=== PATIENT | male | born 1955 | race Caucasian/White ===

== ENCOUNTER 2017-09-12 12:53 | Inpatient (IN) | payer MEDICARE ==
[2017-09-12 13:21] VITALS: BMI 30.9
[2017-09-12] MEDS ORDERED: Sodium Chloride 0.9% 1,000 ML IV STA (13:34)
[2017-09-12 13:47] LABS: BASO # 0.02 K/mm3 (0.0-2.0); BASO % 0.3 % (0.0-3.0); EOS # 0.3 (0.0-0.7); EOS % 3.7 % (1.5-5.0); GRAN # 4.15 (1.4-6.5); GRAN % 61.2 % (50.0-68.0); HEMATOCRIT 40.5 % (42.0-52.0); LYMPH % 29.2 % (22.0-35.0); MEAN CELL VOLUME 83.2 fl (80.0-105.0); MEAN CORPUSCULAR HEMOGLOBIN 28.5 pg (25.0-35.0); MEAN CORPUSCULAR HGB CONC 34.3 g/dl (31.0-37.0); MEAN PLATELET VOLUME 11.3 fl (7.0-11.0); MONO # 0.4 (0.1-0.6); MONO % 5.6 % (1.0-6.0); RED CELL DISTRIBUTION WIDTH 13.2 % (11.5-14.5); WHITE BLOOD COUNT 6.8 10^3/ul (4.5-11.0)
[2017-09-12 13:58] LABS: ALB/GLOB RATIO 1.3 (1.1-1.8); ALKALINE PHOSPHATASE 61 U/L (38-126); ALT/SGPT 37 U/L (7-56); AST/SGOT 27 U/L (17-59); BILIRUBIN,TOTAL 1.2 mg/dL (0.2-1.3); BLOOD UREA NITROGEN 18 mg/dL (7-21); CARBON DIOXIDE 24 mmol/L (21-33); CHLORIDE 107 mmol/L (98-107); GFR AFRICAN-AMERICAN > 60; GLUCOSE,RANDOM 186 mg/dL (70-110); POTASSIUM 3.6 mmol/L (3.6-5.0); SODIUM 141 mmol/L (132-148); TOTAL PROTEIN 6.7 g/dL (5.8-8.3)
--- NOTE | 2017-09-12 14:03 | ED PDOC ---
Arrival/HPI - General Chief Complaint: Dizziness/Lightheaded Time Seen by Provider: 09/12/17 13:03 Historian: Patient, Family - History of Present Illness Narrative History of Present Illness (Text): 09/12/17 13:51 A 62-year-old male presented to [facility] [place] for chief complaint of syncopal episodes. He had a PMH of BPPV, systolic CHF, GERD, CAD, a. fib, stent placement, [place], hypertension, diabetes, and BPH. His first episode of syncope occurred two days ago while he was in the city. He was getting out of the car when he passed out. EMS was called but he did not go to the hospital. Yesterday, he had an episode of presyncope while he was doing some work. This morning, when he went to stand up from the couch, he passed out and fell backwards. His daughter, who was with him at the time, said that she saw some possible seizure activity for about 20 seconds. He did not bite his tongue, or lose control of his bladder or bowels. Patient does not remember passing out or waking up. Patient has recently been diagnosed with BPPV and started taking meclizine, when needed. Patient admits to feeling general weakness and his head feels heavy. Patient admits to shortness of breath with exertion and slight headache. He denies F/C, chest pain , Nausea, vomiting, diarrhea and constipation. PMH: diagnosed with BBPV 1 month ago, systolic CHF, GERD, CAD, a. fib, stent placement, IN, hypertension, diabetes, and BPH. PSH: Left eye surgery: retinal tear and cataract Social: Former smoker, denies alcohol, and drug use Allergies: NKDA Symptom Course: Intermittent Past Medical History - Infectious Disease Hx of Infectious Diseases: None - Tetanus Immunization Tetanus Immunization: Unknown - Cardiac Hx Atrial Fibrillation: Yes - Pulmonary Hx Respiratory Disorders: No Hx Asthma: No Hx Bronchitis: No Hx Chronic Obstructive Pulmonary Disease (COPD): Yes Hx Emphysema: No Hx Pneumonia: No Hx Respiratory Aspiration: No Hx Respiratory Tract Infection: No Hx Sleep Apnea: No Hx Tuberculosis: No - Neurological Hx Neurological Disorder: No Hx Alzheimer's Disease: No HX Cerebrovascular Accident: No Hx Dementia: No Hx Dizziness: No Hx Meningitis: No Hx Migraine: No Hx Parkinson's Disease: No Hx Seizures: No Hx Transient Ischemic Attacks (TIA): No - HEENT Hx HEENT Disorder: No Hx Blind: No Hx Cataracts: Yes (removed) Hx Deafness: No Hx Difficulty Chewing: No Hx Epistaxis: No Hx Glaucoma: No Hx Macular Degeneration: No Other/Comment: Retinal detachment repair - Renal Hx Renal Disorder: No Hx Dialysis: No Hx Kidney Stones: No Hx Neurogenic Bladder: No Hx Pyelonephritis: No Hx Renal Cancer: No Hx Renal Failure: No - Endocrine/Metabolic Hx Endocrine Disorders: Yes Hx Adrenal Cancer: No Hx Diabetes Insipidus: No Hx Diabetes Mellitus Type 1: No Hx Diabetes Mellitus Type 2: Yes Hx Hyperthyroidism: No Hx Hypothyroidism: No Hx Systemic Lupus Erythematosus: No - Hematological/Oncological Hx Blood Disorders: No Hx AIDS: No Hx Anemia: No Hx Blood Transfusions: No Hx Blood Transfusion Reaction: No Hx Cancer: No Hx Chemotherapy: No Hx Cirrhosis: No Hx Hemophilia: No Hx Hepatitis A: No Hx Hepatitis B: No Hx Hepatitis C: No Hx Metastasis: No Hx Shingles: No Hx Sickle Cell Disease: No Hx Unexplained Bleeding: No - Integumentary Hx Dermatological Disorder: No Hx Basal Cell Carcinoma: No Hx Eczema: No Hx Melanoma: No Hx Psoriasis: No Hx Squamous Cell Carcinoma: No - Musculoskeletal/Rheumatological Hx Musculoskeletal Disorders: Yes Hx Arthritis: Yes Hx Back Pain: No Hx Degenerative Joint Disease: No Hx Falls: No Hx Fractures: No Hx Gout: No Hx Herniated Disk: No Hx Myasthenia Gravis: No Hx Osteoarthritis: No Hx Osteomyelitis: No Hx Osteoporosis: No Hx Rhabdomyolysis: No Hx Spinal Stenosis: No Hx Unsteady Gait: No - Gastrointestinal Hx Gastrointestinal Disorders: No Hx Colostomy: No Hx Crohn's Disease: No Hx Diverticulitis: No Hx Gall Bladder Disease: No Hx Gastroesophageal Reflux: No Hx Gastrointestinal Ulcer: No Hx Ileostomy: No Hx Liver Failure: No Hx Pancreatitis: No HX Swallowing Problems: No - Genitourinary/Gynecological Hx Genitourinary Disorders: No Hx Hematuria: No Hx Incontinence: No Hx Prostate Problems: No Hx Sexually Transmitted Diseases: No Hx Urinary Tract Infection: No - Psychiatric Hx Psychophysiologic Disorder: No Hx Anxiety: No Hx Bipolar Disorder: No Hx Depression: No Hx Emotional Abuse: No Hx Hallucinations: No Hx Panic Disorder: No Hx Post Traumatic Stress Disorder: No Hx Psychosis: No Hx Physical Abuse: No Hx Schizophrenia: No Hx Sexual Abuse: No Hx Substance Use: No - Surgical History Hx Cardiac Catheterization: Yes (2012) - Anesthesia Hx Anesthesia: Yes Hx Anesthesia Reactions: No Hx Malignant Hyperthermia: No - Suicidal Assessment Feels Threatened In Home Enviroment: No Family/Social History - Physician Review Nursing Documentation Reviewed: Yes Family/Social History: No Known Family HX Smoking Status: Former Smoker Hx Alcohol Use: No Hx Substance Use: No Hx Substance Use Treatment: No Allergies/Home Meds Allergies/Adverse Reactions: Allergies No Known Allergies Allergy (Verified 06/26/14 22:32) Home Medications: Home Meds Medication Instructions Recorded Confirmed Atorvastatin [Lipitor] 20 mg PO BID 10/05/15 09/12/17 Digoxin [Digitek] 0.25 mcg PO DAILY 10/05/15 07/22/16 Furosemide [Lasix] 40 mg PO HS 09/12/17 09/12/17 Lisinopril 20 mg PO HS 09/12/17 09/12/17 Review of Systems - Physician Review All systems were reviewed & negative as marked: Yes - Review of Systems Constitutional: Normal Eyes: Normal ENT: Normal Respiratory: Normal Cardiovascular: Syncope Gastrointestinal: Normal Musculoskeletal: Other (generalized weakness ) Skin: Normal Neurological: Headache Endocrine: Normal Hemo/Lymphatic: Normal Psychiatric: Normal Physical Exam Vital Signs Reviewed: Yes Vital Signs Temp Pulse Resp BP Pulse Ox 09/12/17 15:43 97.8 F 66 17 137/74 99 09/12/17 13:10 98.3 F 89 17 143/80 98 Temperature: Afebrile Blood Pressure: Hypertensive Pulse: Regular Respiratory Rate: Normal Appearance: Positive for: Well-Appearing, Non-Toxic, Comfortable Pain Distress: None Mental Status: Positive for: Alert and Oriented X 3 Finger Stick Blood Glucose: 171 - Systems Exam Head: Present: Atraumatic, Normocephalic Pupils: Present: PERRL Mouth: Present: Moist Mucous Membranes Neck: Present: Normal Range of Motion Respiratory/Chest: Present: Clear to Auscultation. No: Respiratory Distress, Accessory Muscle Use, Wheezes Cardiovascular: Present: Regular Rate and Rhythm, Normal S1, S2. No: Murmurs Abdomen: Present: Normal Bowel Sounds. No: Tenderness, Distention Upper Extremity: Present: Normal Inspection, Cyanosis, Edema Lower Extremity: Present: Normal Inspection. No: Edema Neurological: Present: GCS=15, CN II-XII Intact, Speech Normal, Motor Func Grossly Intact, Normal Sensory Function, Normal Cerebellar Funct, Norm Deep Tendon Reflexes, Gait Normal, Memory Normal, Normal 2Pt Descrimination Skin: Present: Warm, Dry, Normal Color. No: Rashes Psychiatric: Present: Alert, Oriented x 3 Medical Decision Making ED Course and Treatment: 62 year old male w/ involved cardiac history, bppv, scheduled outpt. MRI for left sided auditory /canal /vestibular mechanism which was lost to follow up presents complaining of repeated syncopal events , always falling to the left will need admission for further detailed syncope workup including possible mri/ mra brain/neck, MRI vestibular mechanism of left ear, possible tilt table testing, neurology /cardiology consultations . Pt w/ largely normal labs, telemetry monitoring while in Emergency department. 09/12/17 18:12 - Lab Interpretations Lab Results: 09/12/17 13:22 09/12/17 13:22 Lab Results 09/12/17 15:17: Urine Color Yellow, Urine Appearance Clear, Urine pH 6.0, Ur Specific [place] 1.020, Urine Protein Trace H, Urine Glucose (UA) Negative, Urine Ketones Negative, Urine Blood Negative, Urine Nitrate Negative, Urine Bilirubin Negative, Urine Urobilinogen 0.2, Ur Leukocyte Esterase Negative, Urine RBC 0 - 2, Urine WBC 0 - 2, Ur Epithelial Cells 0 - 2, Urine Bacteria Occ 09/12/17 13:22: Digoxin 0.7 L 09/12/17 13:22: Sodium 141, Potassium 3.6, Chloride 107, Carbon Dioxide 24, Anion Gap 14, BUN 18, Creatinine 1.1, Est GFR ( Amer) > 60, Est GFR (Non- Af Amer) > 60, Random Glucose 186 H, Calcium 9.4, Total Bilirubin 1.2, AST 27, ALT 37, Alkaline Phosphatase 61, Lactate Dehydrogenase 399, Total Creatine Kinase 124, Troponin I < 0.01 D, NT-Pro-B Natriuret Pep 726 H, Total Protein 6.7, Albumin 3.8, Globulin 2.9, Albumin/Globulin Ratio 1.3 09/12/17 13:22: PT 14.4 H, INR 1.31 H, APTT 52.4 H 09/12/17 13:22: WBC 6.8, RBC 4.87, Hgb 13.9 L, Hct 40.5 L, MCV 83.2, MCH 28.5, MCHC 34.3, RDW 13.2, Plt Count 178, MPV 11.3 H, Gran % 61.2, Lymph % (Auto) 29.2 , [place] % (Auto) 5.6, Eos % (Auto) 3.7, Baso % (Auto) 0.3, Gran # 4.15, Lymph # 2.0, [place] # 0.4, Eos # 0.3, Baso # 0.02 - RAD Interpretation Radiology Orders: 09/12/17 13:32 CHEST ONE VIEW [RAD] Stat 09/12/17 13:33 HEAD W/O CONTRAST [CT] Stat - Medication Orders Current Medication Orders: Discontinued Medications Sodium Chloride (Sodium Chloride 0.9%) 1,000 mls @ 999 mls/hr IV .Q1H1M STA Stop: 09/12/17 14:34 Last Admin: 09/12/17 14:23 Dose: 999 mls/hr eMAR Start Stop Document 09/12/17 14:23 GMI (Rec: 09/12/17 14:24 GMI [id number]) Intravenous Solution Start Date 09/12/17 Start Time 14:23 End Date 09/12/17 End time 15:21 Total Infusion Time 58 Disposition/Present on Arrival - Present on Arrival Any Indicators Present on Arrival: No History of DVT/PE: No History of Uncontrolled Diabetes: No Urinary Catheter: No History of Decub. Ulcer: No History Surgical Site Infection Following: None - Disposition Have Diagnosis and Disposition been Completed?: Yes Diagnosis: Syncope Disposition: HOSPITALIZED Disposition Time: 18:18 Patient Plan: Admission Condition: FAIR Discharge Instructions (ExitCare): Syncope (ED) Forms: [facility] ([place]an)
[2017-09-12 14:09] LABS: INR 1.31 (0.93-1.08); PARTIAL THROMBOPLASTIN TIME 52.4 Seconds (25.1-36.5)
[2017-09-12 14:10] LABS: TROPONIN I < 0.01 ng/mL
--- NOTE | 2017-09-12 14:12 | CT ---
PROCEDURE: CT HEAD WITHOUT CONTRAST. HISTORY: s/p syncope COMPARISON: None available. TECHNIQUE: Axial computed tomography images were obtained through the head/brain without intravenous contrast. Radiation dose: Total exam DLP = 823.45 mGy-cm. This CT exam was performed using one or more of the following dose reduction techniques: Automated exposure control, adjustment of the mA and/or kV according to patient size, and/or use of iterative reconstruction technique. FINDINGS: HEMORRHAGE: No intracranial hemorrhage. BRAIN: No mass effect or edema. Minimal chronic periventricular chronic white matter ischemic change. Consistent with age. No evidence of acute infarct. VENTRICLES: Unremarkable. No hydrocephalus. CALVARIUM: Unremarkable. PARANASAL SINUSES: The minimal chronic frontal and ethmoidal sinusitis. MASTOID AIR CELLS: Unremarkable as visualized. No inflammatory changes. OTHER FINDINGS: None. IMPRESSION: No intracranial mass, hemorrhage or evidence of acute infarct. Minimal chronic frontal and ethmoid sinusitis. Age-appropriate microvascular white matter ischemic change.
[2017-09-12 14:28] LABS: CALCIUM 9.4 mg/dL (8.4-10.5)
[2017-09-12 15:37] LABS: URINE BILIRUBIN NEGATIVE (NEGATIVE); URINE BLOOD NEGATIVE (NEGATIVE); URINE GLUCOSE (UA) NEGATIVE (NEGATIVE); URINE KETONE NEGATIVE (NEGATIVE); URINE LEUKOCYTE ESTERASE NEGATIVE Leu/uL (NEGATIVE); URINE PROTEIN TRACE mg/dL (<30 mg/dL); URINE UROBILINOGEN 0.2 E.U./dL (<1 E.U./dL)
[2017-09-12 15:43] LABS: URINE APPEARANCE CLEAR (CLEAR); URINE COLOR YELLOW (YELLOW)
--- NOTE | 2017-09-12 15:48 | RAD ---
PROCEDURE: CHEST RADIOGRAPH, 1 VIEW HISTORY: syncope COMPARISON: 06/21/2015 FINDINGS: LUNGS: Clear. PLEURA: No pneumothorax or pleural fluid seen. CARDIOVASCULAR: Normal. OSSEOUS STRUCTURES: No significant abnormalities. VISUALIZED UPPER ABDOMEN: Normal. OTHER FINDINGS: None. IMPRESSION: No active disease.
[2017-09-12 15:59] LABS: URINE BACTERIA OCC (NEG); URINE EPITHELIAL CELLS 0 - 2 /hpf (0-5); URINE RBC 0 - 2 /hpf (0-2); URINE WBC 0 - 2 /hpf (0-6)
--- NOTE | 2017-09-12 23:11 | CARD ---
APPROVED REPORT EKG Measurement Heart [id number] <Conclusion> Atrial fibrillation Left bundle branch block Abnormal ECG
--- NOTE | 2017-09-13 02:34 | CON ---
DATE: 09/12/2017 LOCATION: Emergency room, bed 7. This consult I am doing on behalf of Dr. Lang, whom I am covering. REASON FOR CONSULTATION: Syncopal episode, coronary artery disease, cardiomyopathy, and atrial fibrillation. HISTORY OF PRESENT ILLNESS: The patient is a 62-year-old male, known case of coronary artery disease, has three stents put in 2012, atrial fibrillation since last 2-1/2 years ago, also known to have CHF since 2013, recently found here also diabetes, admitted with history that in the last 2 days, he has syncopal episodes three times and each time he was standing and he fell down. The patient denies any chest pain, shortness of breath, palpitation, associated with this episode. PAST MEDICAL HISTORY: As mentioned before, the patient has coronary artery disease and had three stents inserted in 2012, since 2012, he has also CHF, atrial fibrillation 2-1/2 years ago, recently found to have diabetes. He also had surgery for cataract and retinal repair. PERSONAL HISTORY: He used to smoke heavy until 12 years ago, stopped since 12 years. Denies drinking. FAMILY HISTORY: Positive for coronary artery disease. HOME MEDICATIONS: Included Lipitor 20 mg daily, digoxin 0.25 p.o. daily, furosemide 40 daily, lisinopril 20 daily. ALLERGIES: THE PATIENT DENIES ANY ALLERGIES. REVIEW OF SYSTEMS: All other systems reviewed, positive mentioned in the history, otherwise negative. PHYSICAL EXAMINATION VITAL SIGNS: Blood pressure 141/90, respirations 20, pulse 90, and temperature 98. In the emergency room, they took blood pressure in three positions and there was no postural hypotension. HEENT: Head is normocephalic. Eyes: Pupils normal, conjunctivae normal. Nose and throat normal. NECK: JVP low. Carotids equal. THORAX: AP diameter normal. LUNGS: Clear. CARDIOVASCULAR: S1 and S2. Irregular rhythm due to atrial fibrillation. ABDOMEN: Soft and nontender. No organomegaly. EXTREMITIES: No clubbing, no cyanosis. LABORATORY DATA: WBC 6.8, hemoglobin 13.9, hematocrit 40.5, and platelet 178. Sodium 141, potassium 3.6, BUN 14, creatinine 1.1, and calcium 9.4. AST and ALT normal. Troponin less than 0.01. NT-pro B-type natriuretic peptide 726. EKG showed atrial fibrillation, moderate rate, left bundle-branch block. Chest x-ray, no active disease. CAT scan of the head, no intracranial mass, hemorrhage or infarct. Minimal chronic frontal and ethmoidal sinusitis. Age microvascular white matter ischemic changes. The patient's stress test on 07/22/2016, which showed LV ejection fraction of 53%, partially reversible apical defect suspicious of residual ischemia. In comparison with the study of 10/05/2015, the perfusion patterns are similar. Echo was done on 07/22/2016, showed moderate LVH with good LV function, mildly dilated LA and RA, [id number] AI, mild tricuspid regurgitation, mild pulmonary hypertension, RSV 34 mmHg, ejection fraction of 54%. DIAGNOSES: Syncope, rule out postural hypotension, coronary artery disease, history of stent insertion, atrial fibrillation, history of congestive heart failure, left ventricular systolic dysfunction, diabetes mellitus, ischemic cardiomyopathy. PLAN: We will check again blood pressure in 3 positions to rule out postural hypotension. We will monitor the patient for any arrhythmia and we will check lipid profile, TSH. We will put him on digoxin 0.25 daily, furosemide 40 p.o. daily, atorvastatin 20 mg daily, and lisinopril 20 p.o. daily. We will check for anticoagulation also. The patient's prothrombin time 14.4, and INR 1.31. We will follow with you. Minh Mccauley MD
[2017-09-13 07:54] LABS: HEMATOCRIT 39.7 % (42.0-52.0); MEAN CELL VOLUME 83.2 fl (80.0-105.0); MEAN CORPUSCULAR HEMOGLOBIN 28.3 pg (25.0-35.0); MEAN PLATELET VOLUME 11.2 fl (7.0-11.0); RED CELL DISTRIBUTION WIDTH 13.1 % (11.5-14.5)
[2017-09-13 09:50] LABS: CHOLESTEROL 103 mg/dL (130-200)
--- NOTE | 2017-09-13 10:30 | PN ---
DATE: 09/13/2017 LOCATION: The patient is in room 375, bed 1. This progress note is being written on behalf of Dr. Lang whom I am covering. REASON FOR CONSULTATION AND FOLLOWUP: Syncopal episode, coronary artery disease, cardiomyopathy, atrial fibrillation. SUBJECTIVE: Patient is conscious, alert. Denies any chest pain, shortness of breath or palpitations. He got up 2 to 3 times and does not have any dizziness or syncopal episode. While in the hospital whereas in the last 2 days, he had 3 episodes of syncope. PHYSICAL EXAMINATION VITAL SIGNS: Blood pressure done in 3 positions, lying down 163/99, sitting 142/92, and standing 146/88. He was asymptomatic. Respirations 20, pulse 69, temperature 98.4. HEENT: Head is normocephalic. Eyes: Pupils normal. Conjunctivae normal. Nose and throat normal. NECK: JVP is low. Carotid equal. THORAX: AP diameter normal. LUNGS: Clear. CARDIOVASCULAR: S1, S2. Irregular rhythm due to atrial fibrillation. ABDOMEN: Soft. No tenderness. No organomegaly. EXTREMITIES: No clubbing, no cyanosis. LABORATORY DATA: WBC 9.0, hemoglobin 13.5, hematocrit 39.7, platelets 169. Sodium 141, potassium 3.6, BUN 18, creatinine 1.1. Random sugar is 186. AST and ALT normal. Troponin is normal. [id number] natriuretic peptide 726. DIAGNOSES: Syncope, coronary artery disease, history of stent insertion, atrial fibrillation, history of congestive heart failure, left ventricular systolic dysfunction, diabetes mellitus, ischemic cardiomyopathy, valvular postural hypotension. PLAN: Plan is to continue to monitor the patient. TSH and lipid profile ordered. Patient continuing on Digoxin 0.25 daily, lisinopril 20 daily, Pradaxa 150 b.i.d., Lipitor 20 daily, Furosemide 40 daily, sotalol [address] Lang will see the patient starting tomorrow. Minh Mccauley MD
[2017-09-13] MEDS: Digoxin 250 mcg (0.25 mg) Tab PO SCH (11:02)
--- NOTE | 2017-09-13 13:10 | CP.PCM.PN ---
Subjective - Date & Time of Evaluation Date of Evaluation: 09/13/17 Time of Evaluation: 06:45 - Subjective Subjective: S:Patient was seen because nurse called and told that BP was 163/99. He was asymptomatic. Lisinopril 20 mg PO stat was ordered. When I went to see patient , he was asleep. O:163/99. Asleep. LUNGS:Normal breathing pattern. A:Elevated blood pressure reading. P:Lisonopril 20 mg po stat. Objective - Vital Signs/Intake and Output Vital Signs (last 24 hours): Temp Pulse Resp BP Pulse Ox 98.4 F 90 20 140/82 99 09/13/17 06:00 09/13/17 11:05 09/13/17 06:00 09/13/17 11:05 09/13/17 06:00 Intake and Output: 09/13/17 09/13/17 06:59 18:59 Intake Total 120 Balance 120 - Medications Medications: Current Medications Atorvastatin Calcium (Lipitor) 20 mg PO DIN KAREN Dabigatran (Pradaxa) 150 mg PO BID [facility] PRN Reason: Protocol Last Admin: 09/13/17 11:03 Dose: 150 mg Digoxin (Lanoxin) 0.25 mg PO DAILY [facility] Last Admin: 09/13/17 11:02 Dose: 0.25 mg Furosemide (Lasix) 40 mg PO DAILY [facility] Last Admin: 09/13/17 11:02 Dose: 40 mg Lisinopril (Zestril) 20 mg PO DAILY [facility] Last Admin: 09/13/17 11:02 Dose: 20 mg Sotalol HCl (Betapace) 80 mg PO BID [facility] Last Admin: 09/13/17 11:05 Dose: 80 mg - Labs Labs: 09/13/17 07:00 PT 14.4 SECONDS (9.4-12.5) H 09/12/17 13:22 INR 1.31 (0.93-1.08) H 09/12/17 13:22 APTT 52.4 Seconds (25.1-36.5) H 09/12/17 13:22
--- NOTE | 2017-09-14 00:06 | CON ---
DATE: HISTORY OF PRESENT ILLNESS: This is a 62-year-old male with past medical history of coronary artery disease, had 3 stents in 2012, atrial fibrillation 2 years ago and the patient is on Pradaxa. 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 Does not know how and what happened. These kind of episodes he has been getting, 2 to 3 episodes in the past few years. No tongue bite. No urinary incontinence. PAST MEDICAL HISTORY: As above. SOCIAL HISTORY: He does not smoke. He does not drink. ALLERGIES: NO KNOWN DRUG ALLERGIES. PHYSICAL EXAMINATION: HEENT: Normocephalic, atraumatic. NECK: Supple. NEUROLOGIC: Alert, awake, oriented x3. No aphasia. Cranial nerves II through XII were tested. Pupils reactive. EOM intact. Visual field full. No facial asymmetry. Tongue midline. Motor examination, moves all the extremities equally. Tone normal. Deep tendon reflexes 1+. Both plantars are downgoing. Sensory appears intact. Cerebellar, gait normal. IMPRESSION AND PLAN: Syncope possibly postural hypotension, coronary artery disease, atrial fibrillation, diabetes, and ischemic cardiomyopathy. Workup in progress and we follow up. Mario Phillips MD
--- NOTE | 2017-09-14 03:24 | HP ---
CHIEF COMPLAINT: Dizziness and lightheadedness. HISTORY OF PRESENT ILLNESS: Mr. Diamante Ng is a 62-year-old male who came in [facility] emergency room with syncopal attack. He had past medical history of BPPV, systolic congestive heart failure, GERD, coronary artery disease, atrial fibrillation, stent placement, MA, hypertension, diabetes mellitus and BPH. His first episode of syncope occurred 2 days ago while he was in the [facility], was picking up passenger, he was getting out of the chair when he passed out. EMS was called, but he did not go to hospital. He had an episode of presyncope while he was doing some home chores. This morning, when he wanted to stand up from the couch, he passed out and fell backward. His daughter who was with him at this time witnessed. She said that she saw some possible seizure activity for about 20 seconds. He did not bit his tongue or lose control of his bladder or bowel. The patient does not remember passing out or waking up. The patient has recently been diagnosed with BPPV and started taking meclizine when needed. The patient admits to feeling generalized weakness and his head feels heavy. The patient admits shortness of breath with exertion and slightly headache. Denies chest pain, nausea, vomiting, diarrhea, or constipation. PAST MEDICAL HISTORY: BPPV one month ago, systolic congestive heart failure, GERD, coronary artery disease, atrial fibrillation, cardiac stenting, MA, hypertension, diabetes, and BPH. PAST SURGICAL HISTORY: Left eye surgery, retinal tear and cataracts. SOCIAL HISTORY: Former smoker, now no smoking. No drugs. No ethanol. ALLERGIES: THE PATIENT IS NOT ALLERGIC WITH ANY MEDICATIONS. FAMILY HISTORY: Father and mother, noncontributory. REVIEW OF SYSTEMS: The patient was seen and examined on the bedside. Daughter, sister and other family members were sitting on the bedside also. Feeling better. No more syncopal attack. No nausea, vomiting or diarrhea. No fever. No chills. No headache or dizziness. No chest pain or palpitations. PHYSICAL EXAMINATION: VITAL SIGNS: Temperature 97.9, pulse 52, blood pressure 124/80, respiratory rate 20. HEENT: Head is normocephalic, atraumatic. Eyes; PERRLA. Extraocular muscles are intact. Conjunctivae clear. Nose patent. Mucous membrane moist. NECK: Supple. No carotid bruit, JVD or thyromegaly. CHEST: Bilaterally symmetrical. HEART: S1, S2 positive. LUNGS: Clear to auscultation. ABDOMEN: Soft. Bowel sounds present. No organomegaly. EXTREMITIES: No edema. No cyanosis. NEUROLOGIC: The patient is awake, alert. Moving all 4 extremities. No focal deficits. LABORATORY DATA: White blood cells 9.0, hemoglobin 13.5, hematocrit 39.7, platelets 159. Sodium 141, potassium 3.9, BUN 18, creatinine 1.1, glucose 186, BNP 726, cholesterol 103. ASSESSMENT: Mr. Diamante Ng is a 62-year-old male with hyperglycemia, congestive heart failure, proteinuria. Digoxin level is low , Went for brain MRI, results are pending. Seen by Dr. Orr today. Blood pressure is high, he gave lisinopril [address] Mccauley, senior financial, covering for Dr. Holden Lang. Syncopal attack, coronary artery disease, history of cardiac stenting, atrial fibrillation, history of congestive heart failure, left ventricular systolic dysfunction, diabetes mellitus, ischemic cardiomyopathy, valvular disease, and postural hypotension as per family. PLAN: Continue monitoring the patient. TSH, fasting lipid profile and continue digoxin. Lisinopril given by Dr. Orr today because of hypertension. Pradaxa, Lipitor, and sotalol. We called Neurology consult with Dr. Phillips. Bilateral carotid Doppler of the neck done. MRI of ear canal will be done. Discussion done with the patient's daughter and the family and the patient's nurse. We will do orthostatic three times a day. GI and DVT prophylaxes. Repeat labs. We will follow up. Josie Ramos MD MTDJo Ann
[2017-09-14 07:26] LABS: MEAN CELL VOLUME 83.3 fl (80.0-105.0); MEAN CORPUSCULAR HGB CONC 33.7 g/dl (31.0-37.0); MEAN PLATELET VOLUME 11.8 fl (7.0-11.0); RED CELL DISTRIBUTION WIDTH 13.2 % (11.5-14.5)
--- NOTE | 2017-09-14 08:06 | MRI ---
PROCEDURE: MRI BRAIN WITHOUT CONTRAST HISTORY: Bilteral ear canal/dizziness COMPARISON: Unenhanced head CT 09/12/2017. TECHNIQUE: Multiplanar, multisequence MR images of the brain were obtained without intravenous contrast enhancement. FINDINGS: HEMORRHAGE: No definitive intracranial hemorrhage identified. DWI: No evidence of an acute or early subacute infarction. BRAIN PARENCHYMA: Diffuse cerebral atrophy and chronic microangiopathy are reiterated and appear very mild once again. There is no mass effect. There is no suspicious extra-axial collection identified. Posterior fossa contents are unremarkable in the midline brain anatomy remains grossly nonfocal. VENTRICLES: Unremarkable. No hydrocephalus. CRANIUM: Unremarkable. ORBITS: Grossly unremarkable. PARANASAL SINUSES/MASTOIDS: No abnormal opacification including the visualized middle ear cavities. VASCULAR SYSTEM: Skull base flow voids intact. OTHER FINDINGS: None. IMPRESSION: Stable limited age-related neuro degenerative changes are identified.
[2017-09-14 08:12] LABS: BLOOD UREA NITROGEN 14 mg/dL (7-21); CALCIUM 9.4 mg/dL (8.4-10.5); CARBON DIOXIDE 28 mmol/L (21-33); CHLORIDE 107 mmol/L (98-107); GFR AFRICAN-AMERICAN > 60; GLUCOSE,RANDOM 122 mg/dL (70-110); POTASSIUM 3.6 mmol/L (3.6-5.0); SODIUM 143 mmol/L (132-148)
[2017-09-14] MEDS: Digoxin 250 mcg (0.25 mg) Tab PO SCH (09:50)
--- NOTE | 2017-09-14 14:21 | CP.PCM.PN ---
<Janet Amin - Last Filed: 09/14/17 16:00> Subjective - Date & Time of Evaluation Date of Evaluation: 09/14/17 Time of Evaluation: 10:00 - Subjective Subjective: PGY-2 Neurology progress note for Alan Cherry's service Patient seen and examined at bedside No acute distress. Patient does not report any episodes of dizziness or lightheadedness since admitted to hospital. Denies weakness, headache, numbness or tingling. Objective - Vital Signs/Intake and Output Vital Signs (last 24 hours): Temp Pulse Resp BP Pulse Ox 97.8 F 87 20 137/83 95 09/14/17 06:00 09/14/17 09:46 09/14/17 06:00 09/14/17 09:47 09/14/17 06:00 Intake and Output: 09/14/17 09/14/17 06:59 18:59 Intake Total 0 Output Total 0 Balance 0 - Medications Medications: Current Medications Atorvastatin Calcium (Lipitor) 20 mg PO DIN [facility] Last Admin: 09/13/17 19:02 Dose: 20 mg Dabigatran (Pradaxa) 150 mg PO Q12 [facility] PRN Reason: Protocol Last Admin: 09/14/17 09:44 Dose: 150 mg Digoxin (Lanoxin) 0.25 mg PO DAILY [facility] Last Admin: 09/14/17 09:50 Dose: 0.25 mg Furosemide (Lasix) 40 mg PO DAILY [facility] Last Admin: 09/14/17 09:47 Dose: 40 mg Lisinopril (Zestril) 20 mg PO DAILY [facility] Last Admin: 09/14/17 09:46 Dose: 20 mg Sotalol HCl (Betapace) 80 mg PO BID [facility] Last Admin: 09/14/17 09:47 Dose: 80 mg - Labs Labs: 09/14/17 06:50 09/14/17 06:50 PT 14.4 SECONDS (9.4-12.5) H 09/12/17 13:22 INR 1.31 (0.93-1.08) H 09/12/17 13:22 APTT 52.4 Seconds (25.1-36.5) H 09/12/17 13:22 - Constitutional Appears: Well, No Acute Distress - Head Exam Head Exam: ATRAUMATIC, NORMAL INSPECTION, NORMOCEPHALIC - Eye Exam Eye Exam: EOMI, Normal appearance - ENT Exam ENT Exam: Mucous Membranes Moist - Respiratory Exam Respiratory Exam: Clear to Ausculation Bilateral, NORMAL BREATHING PATTERN. absent: Decreased Breath Sounds, Rales, Rhonchi, Wheezes, Respiratory Distress, Stridor - Cardiovascular Exam Cardiovascular Exam: REGULAR RHYTHM, +S1, +S2. absent: Tachycardia, Murmur - GI/Abdominal Exam GI & Abdominal Exam: Soft, Normal Bowel Sounds. absent: Distended, Firm, Guarding, Tenderness - Extremities Exam Extremities Exam: Normal Inspection. absent: Pedal Edema, Tenderness - Neurological Exam Neurological Exam: Alert, Awake, CN II-XII Intact, Oriented x3 - Skin Skin Exam: Dry, Intact, Normal Color, Warm Assessment and Plan - Assessment and Plan (Free Text) Assessment: 62 yo male with PMH of CAD with 3 stents, a. fib on pradaxa presented to ED for syncope most likely due to to postural hypotension, with mild positional orthstatics seen. 1. syncope due to to postural hypotension, with mild positional orthstatics seen. 2. CAD 3. a. fib on pradaxa - CT head was negative - MRI was negative - Carotid ultrasound completed in february 2017 showed 20-39% stenosis. - Recommend hydration - Maintain blood between 140-180 - avoid sudden movements - Continue pradexa, lipitor. Thank you for the consult please reconsult if needed. Patient seen and case discussed/reviewed with attending, Dr. Phillips <Ted Phillips - Last Filed: 09/14/17 18:02> Objective - Vital Signs/Intake and Output Vital Signs (last 24 hours): Temp Pulse Resp BP Pulse Ox 97.8 F 71 20 111/66 95 09/14/17 06:00 09/14/17 17:39 09/14/17 06:00 09/14/17 17:39 09/14/17 06:00 Intake and Output: 09/14/17 09/14/17 06:59 18:59 Intake Total 0 Output Total 0 Balance 0 - Medications Medications: Current Medications Atorvastatin Calcium (Lipitor) 20 mg PO DIN [facility] Last Admin: 09/14/17 17:39 Dose: 20 mg Dabigatran (Pradaxa) 150 mg PO Q12 [facility] PRN Reason: Protocol Last Admin: 09/14/17 09:44 Dose: 150 mg Digoxin (Lanoxin) 0.25 mg PO DAILY [facility] Last Admin: 09/14/17 09:50 Dose: 0.25 mg Furosemide (Lasix) 40 mg PO DAILY [facility] Last Admin: 09/14/17 09:47 Dose: 40 mg Lisinopril (Zestril) 20 mg PO DAILY [facility] Last Admin: 09/14/17 09:46 Dose: 20 mg Sotalol HCl (Betapace) 80 mg PO BID [facility] Last Admin: 09/14/17 17:39 Dose: 80 mg - Labs Labs: 09/14/17 06:50 09/14/17 06:50 PT 14.4 SECONDS (9.4-12.5) H 09/12/17 13:22 INR 1.31 (0.93-1.08) H 09/12/17 13:22 APTT 52.4 Seconds (25.1-36.5) H 09/12/17 13:22 Attending/Attestation - Attestation I have personally seen and examined this patient.: Yes I have fully participated in the care of the patient.: Yes I have reviewed all pertinent clinical information, including history, physical exam and plan: Yes
--- NOTE | 2017-09-14 18:32 | US ---
PROCEDURE: Bilateral carotid artery duplex ultrasound HISTORY: Carotid stenosis PHYSICIAN(S): Holden Ackerman MD. TECHNIQUE: Duplex sonography and color-flow Doppler were used to evaluate the carotid bifurcations and limited segments of the vertebral arteries bilaterally. FINDINGS: There is mild smooth hypoechoic plaque noted at the carotid bifurcations bilaterally. The peak systolic velocity in the proximal right internal carotid artery is 68 cm/sec. This corresponds to a 20 to 39% proximal right ICA stenosis. Normal systolic velocities are noted in the proximal right external carotid artery. There is antegrade flow in the right vertebral artery. The peak systolic velocity in the proximal left internal carotid artery is 71 cm/sec. This corresponds to a 20 to 39% proximal left ICA stenosis. Normal systolic velocities are noted in the proximal left external carotid artery. There is antegrade flow in the left vertebral artery. IMPRESSION: 1. Bilateral 20-39% proximal ICA stenoses. 2. Antegrade flow in both vertebral arteries.
--- NOTE | 2017-09-14 19:42 | PN ---
DATE: SUBJECTIVE: The patient denies any dizziness, chest pain or shortness of breath. PHYSICAL EXAMINATION: VITAL SIGNS: Blood pressure 137/83, heart rate 87, temperature 98 and respirations 20. HEENT: Normocephalic. CHEST: Clear. HEART: S1 and S2 regular. EXTREMITIES: No edema. LABORATORY DATA: Brain MRI reports stable, limited, age-related neurodegenerative changes identified. Echocardiography study performed in June 2017 revealed mild LVH with normal systolic function, mild to moderate aortic insufficiency and mild pulmonary hypertension. EKG on admission revealed atrial fibrillation at the rate of 87 and left bundle-branch block. ASSESSMENT: 1. Status post syncopal episode. 2. Coronary artery disease, status post myocardial infarction and chronic stenting in 2012 according to the patient. 3. Chronic atrial fibrillation. The patient is known to have chronic atrial fibrillation on an EKG performed in 2015. RECOMMENDATIONS: Continue current Pradaxa 150 mg twice daily, Lipitor 20 mg once a day, digoxin 0.25 mg orally daily, Betapace 80 mg twice a day and Zestril 20 mg once a day. I will follow carotid Doppler study report. The study was performed today. Kiet Daniel MD
--- NOTE | 2017-09-15 00:59 | PN ---
DATE: SUBJECTIVE: The patient is a 62-year-old male. The patient was seen and examined on the bedside, sitting on the bed, daughter is sitting on the bedside also. No acute event happened overnight. Looking comfortable. Just came back from bilateral carotid Doppler of the neck. No more dizziness. No more lightheadedness. Denies weakness, headache, numbness or tingling. No fever. No chills. No nausea, vomiting or diarrhea. No hematuria or hematochezia. PHYSICAL EXAMINATION: VITAL SIGNS: Temperature 97.8, pulse 87, respiratory rate 20, blood pressure 137/83, and pulse oximetry 95%. HEENT: Head is normocephalic and atraumatic. Eyes; PERRLA. Extraocular muscles are intact. Conjunctivae are clear. Nose is patent. Mucous membranes are moist. NECK: Supple. No carotid bruit. No JVD or thyromegaly. CHEST: Bilaterally symmetrical. HEART: S1 and S2 positive. LUNGS: Clear to auscultation. ABDOMEN: Soft. Bowel sounds present. No organomegaly. EXTREMITIES: No edema. No cyanosis. NEUROLOGIC: The patient is awake and alert. Moving all four extremities. No focal deficits. MEDICATIONS: Lipitor, Pradaxa, Lanoxin, Lasix, Zestril, and Betapace. LABORATORY DATA: White blood cell is 9.0, hemoglobin 13.8, hematocrit 41.0, and platelets 174. Sodium 146, potassium 3.6, BUN 14, creatinine 1.1, and glucose 122. ASSESSMENT AND PLAN: Mr. Hernandez Bobby is a 62-year-old male with anemia, hyperglycemia with history of coronary artery disease with 3 stents, atrial fibrillation, on Pradaxa, came with syncopal attack x3, may be due to postural hypotension with mild positional orthostatic seen. As per daughter, during weakness and syncopal attacks, the patient was having seizing activity. CT of head was negative. MRI is negative. Carotid ultrasound completed showed 20-39% stenosis. Recommended hydration as per Neurology. Maintain blood pressure between 140 to 180. continue Pradaxa. Seen by Dr. Kiet Daniel, covering Dr. Holden Lang. The patient has history of myocardial infarction, stenting in 2013. According to neuroscience specialist, continue the same medication. Ordered EEG, we will wait for results. GI and DVT prophylaxis. Repeat labs. We will follow up. Josie Ramos MD MTDJo Ann
[2017-09-15] MEDS: Digoxin 250 mcg (0.25 mg) Tab PO SCH (10:13)
[2017-09-15] MEDS ORDERED: Sodium Chloride 0.9% 1,000 ML IV SCH (10:45)
--- NOTE | 2017-09-15 13:15 | CARD ---
APPROVED REPORT EXAM: Two-dimensional and M-mode echocardiogram with Doppler and color Doppler. INDICATION Syncope 2D DIMENSIONS Left Atrium (2D)4.3 (1.6-4.0cm)IVSd2.0 (0.7-1.1cm) LVDd5.1 (3.9-5.9cm)PWd1.3 (0.7-1.1cm) LVDs4.3 (2.5-4.0cm)FS (%) 14.3 % LVEF (%)30.2 (>50%) M-Mode DIMENSIONS Aortic Root4.00 (2.2-3.7cm)Aortic Cusp Exc.2.80 (1.5-2.0cm) Aortic Valve AoV Peak [id number]/Balta Peak GR.8mmHg Mitral Valve E/A ratio0.0 TDI E/Lateral E'0.0E/Medial E'0.0 Tricuspid Valve TR Peak [id number] [id number] Peak Gr.25mmHg [id number] LEFT VENTRICLE The left ventricle is normal size. There is moderate eccentric left ventricular hypertrophy. The systolic function is moderately impaired. There is global hypokinesis of the left ventricle. RIGHT VENTRICLE The right ventricle is normal size. The right ventricular systolic function is normal. ATRIA The left atrium is mildly dilated. The right atrium is mildly dilated. The interatrial septum is intact with no evidence for an atrial septal defect. AORTIC VALVE The aortic valve is mildly sclerotic. There is moderate aortic regurgitation. There is no aortic valvular stenosis. MITRAL VALVE The mitral valve leaflets are thickened. Mitral regurgitation is mild to moderate. TRICUSPID VALVE The tricuspid valve is normal in structure. There is mild to moderate tricuspid regurgitation. PULMONIC VALVE The pulmonary valve is normal in structure. GREAT VESSELS The aortic root is normal in size. The IVC is normal in size and collapses >50% with inspiration. PERICARDIAL EFFUSION There is no pleural effusion. There is no pericardial effusion. <Conclusion> Biatrial enlargement. Moderate septal hypertrophy with no evidence of outflow tract obstruction at rest. Moderate global LV hypokinesis. Moderate aortic insufficiency. Mild to moderate mitral and tricuspid regurgitation.
--- NOTE | 2017-09-15 18:03 | PN ---
DATE: 09/15/2017 SUBJECTIVE: The patient was experienced orthostatic changes this morning. PHYSICAL EXAMINATION: VITAL SIGNS: Blood pressure 144/80, heart rate is in the 70s, atrial fibrillation. NECK: Negative JVD. LUNGS: Without rales. HEART: S1, S2. EXTREMITIES: Without edema. LABORATORY: His BUN and creatinine are unremarkable. The glucose is 122. IMPRESSION: 1. Status post syncope x3 consisting with orthostatic hypotension. 2. Stable angina. 3. History of PTCA and stent. 4. Ischemic dilated cardiomyopathy. 5. Diabetes mellitus. 6. Hypercholesterolemia. 7. Atrial fibrillation. PLAN: Given these findings, it is likely the patient's syncopal episodes due to orthostatic hypotension from his multiple medications. We will discontinue his alpha blockers prescribed for his questionable BPH. We discontinue his sotalol which has been on a tapering dose as an outpatient since the patient remains in atrial fibrillation. In addition, we will cut down his Lasix from 40 to 20. I have ordered physical therapy. We will see whether the patient remains symptomatic in the morning. Holden Lang MD
--- NOTE | 2017-09-16 00:05 | CP.PCM.HP ---
<Laney Eric - Last Filed: 09/16/17 00:02> History of Present Illness - History of Present Illness History of Present Illness: 62 yr male w/ history of CAD (x3 stents), afib (on pradaxa), postural hpotension, DM II, hypercholesterolemia, GERD, & BPH. He was seen at bedside with his daughter. He is c/o dizziness which his daughter attributes to h/o BBPV and requests that maneuvers be done by Neurologist for relief. He denies any fever, chest pain, SOB, headache, constipation, diarrhea, urinary changes or distress. Present on Admission - Present on Admission History of DVT/PE: No History of Uncontrolled Diabetes: No Urinary Catheter: No Decubitus Ulcer Present: No Review of Systems - Constitutional Constitutional: As Per HPI. absent: Anorexia, Chills, Daytime Sleepiness, Excessive Sweating, Fatigue, Fever, Frequent Falls, Headache, Increased Appetite , Lethargy, Malaise, Night Sweats, Snoring, Sleep Apnea, Weight Gain, Weight Loss, Weakness, Other - EENT Eyes: As Per HPI. absent: Blind Spots, Blurred Vision, Change in Vision, Decreased Night Vision, Diplopia, Discharge, Dry Eye, Exophthalmos, Floaters, Irritation, Itchy Eyes, Loss of Peripheral Vision, Pain, Photophobia, Requires Corrective Lenses, Sees Flashes, Spots in Vision, Tunnel Vision, Other Visual Disturbances, Loss of Vision, Other Ears: Disequilibrium, Dizziness. absent: As Per HPI, Decreased Hearing, Ear Discharge, Ear Pain, Tinnitus, Abnormal Hearing, Other Nose/Mouth/Throat: As Per HPI. absent: Epistaxis, Nasal Congestion, Nasal Discharge, Nasal Obstruction, Nasal Trauma, Nose Pain, Post Nasal Drip, Sinus Pain, Sinus Pressure, Bleeding Gums, Change in Voice, Dental Pain, Dry Mouth, Dysphagia, Halitosis, Hoarsness, Lip Swelling, Mouth Lesions, Mouth Pain, Odynophagia, Sore Throat, Throat Swelling, Tongue Swelling, Facial Pain, Neck Pain, Neck Mass, Other - Cardiovascular Cardiovascular: As Per HPI. absent: Acrocyanosis, Chest Pain, Chest Pain at Rest, Chest Pain with Activity, Claudication, Diaphoresis, Dyspnea, Dyspnea on Exertion, Edema, Irregular Heart Rhythm, Pain Radiating to Arm/Neck/Jaw, Leg Edema, Leg Ulcers, Lightheadedness, Orthopnea, Palpitations, Paroxysmal Nocturnal Dyspnea, Pedal Edema, Radiating Pain, Rapid Heart Rate, Slow Heart Rate, Syncope, Other - Respiratory Respiratory: As Per HPI. absent: Cough, Dyspnea, Hemoptysis, Dyspnea on Exertion, Wheezing, Snoring, Stridor, Pain on Inspiration, Chest Congestion, Excessive Mucous Production, Change in Mucous Color, Pain with Coughing, Other - Gastrointestinal Gastrointestinal: As Per HPI. absent: Abdominal Pain, Belching, Bloating, Change in Bowel Habits, Change in Stool Character, Coffee Ground Emesis, Constipation, Cramping, Diarrhea, Dyspepsia, Dysphagia, Early Satiety, Excessive Flatus, Fecal Incontinence, Heartburn, Hematemesis, Hematochezia, Loose Stools, Melena, Nausea, Odynophagia, Temesmus, Vomiting, Other - Genitourinary Genitourinary: As Per HPI. absent: Change in Urinary Stream, Difficulty Urinating, Dysuria, Flank Pain, Hematuria, Pyuria, Nocturia, Urinary Incontinence, Urinary Frequency, Urinary Hesitance, Urinary Urgency, Voiding Freq/Small Amts, Freq UTI, Hx Renal/Bladder Calculi, Hx /Renal Surgery, Bladder Distension, Other - Musculoskeletal Musculoskeletal: Muscle Weakness. absent: As Per HPI, Abnormal Gait, Arthralgias, Atrophy, Back Pain, Deformity, Joint Swelling, Limited Range of Motion, Loss of Height, Muscle Cramps, Myalgias, Neck Pain, Numbness, Radiating Pain into Limb, Stiffness, Tingling, Other - Integumentary Integumentary: As Per HPI. absent: Acne, Alopecia, Bleeding Lesions, Change in Hair, Change in Nails, Change in Pigmentation, Changing Lesions, Dry Skin, Erythema, Furuncle, Hirsutism, Lesions, New Lesions, Non-Healing Lesions, Photosensitivity, Pruritus, Rash, Skin Pain, Skin Ulcer, Sores, Striae, Swelling , Unusual Bruising, Wounds, Jaundice, Other - Neurological Neurological: Disequilibrium, Dizziness, Lack of Coordination, Syncope, Vertigo , Weakness. absent: As Per HPI, Abnormal Gait, Abnormal Hearing, Abnormal Movements, Abnormal Speech, Behavioral Changes, Burning Sensations, Confusion, Convulsions, Numbness, Focal Weakness, Frequent Falls, Headaches, Loss of Vision , Memory Loss, Paresthesias, Radicular Pain, Restless Legs, Sensory Deficit, Tingling, Tremor, Other Visual Disturbances, Other - Psychiatric Psychiatric: As Per HPI. absent: Abnormal Sleep Pattern, Anhedonia, Anxiety, Auditory Hallucinations, Behavioral Changes, Change in Appetite, Change in Libido, Confusion, Depression, Difficulty Concentrating, Hallucinations, Homicidal Ideation, Hopelessness, Irritability, Memory Loss, Mood Swings, Panic Attacks, Paranoia, Suicidal Ideation, Visual Hallucinations, Tactile Hallucinations, Other - Endocrine Endocrine: As Per HPI. absent: Change in Body Appearance, Change in Libido, Cold Intolorance, Deepening of Voice, Excessive Sweating, Fatigue, Flushing, Heat Intolorance, Increase in Ring/Shoe/Hat Size, Palpitations, Polydipsia, Polyphagia, Polyuria, Other - Hematologic/Lymphatic Hematologic: As Per HPI. absent: Easy Bleeding, Easy Bruising, Lymphadenopathy , Other Past Patient History - Infectious Disease Hx of Infectious Diseases: None - Tetanus Immunizations Tetanus Immunization: Unknown - Past Medical History & Family History Past Family History: Reviewed and not pertinent - Past Social History Smoking Status: Former Smoker Chewing Tobacco Use: No Cigar Use: No Alcohol: None Drugs: Denies Home Situation {Lives}: With Family - CARDIAC Hx Cardiac Disorders: Yes ([place]) Hx Congestive Heart Failure: No Hx Hypercholesterolemia: Yes Hx Hypertension: Yes - PULMONARY Hx Chronic Obstructive Pulmonary Disease (COPD): Yes - NEUROLOGICAL HX Cerebrovascular Accident: No - HEENT Hx HEENT Problems: No Hx Blind: No Hx Cataracts: Yes (removed) Hx Deafness: No Hx Difficulty Chewing: No Hx Epistaxis: No Hx Glaucoma: No Hx Macular Degeneration: No Other/Comment: Retinal detachment repair - RENAL Hx Renal Failure: No - ENDOCRINE/METABOLIC Hx Diabetes Mellitus Type 1: No Hx Diabetes Mellitus Type 2: Yes Hx Hypothyroidism: No - HEMATOLOGICAL/ONCOLOGICAL Hx Blood Disorders: No Hx AIDS: No Hx Anemia: No Hx Cancer: No Hx Chemotherapy: No Hx Cirrhosis: No Hx Hemophilia: No Hx Hepatitis A: No Hx Hepatitis B: No Hx Hepatitis C: No Hx Human Immunodeficiency Virus (HIV): No Hx Metastesis: No Hx Shingles: No Hx Sickle Cell Disease: No Hx Unexplained Bleeding: No - INTEGUMENTARY Hx Dermatological Problems: No Hx Basil Cell: No Hx Eczema: No Hx Melanoma: No Hx Psoriasis: No Hx Squamous Cell: No - MUSCULOSKELETAL/RHEUMATOLOGICAL Hx Falls: Yes - GASTROINTESTINAL Hx Gastrointestinal Disorders: No Hx Colostomy: No Hx Crohn's Disease: No Hx Diverticulitis: No Hx Gall Bladder Disease: No Hx Gastroesophageal Reflux: No Hx Ileostomy: No Hx Liver Failure: No Hx Pancreatitis: No HX Swallowing Problems: No - GENITOURINARY/GYNECOLOGICAL Hx Genitourinary Disorders: No Hx Hematuria: No Hx Incontinence: No Hx Prostate Problems: No Hx Sexually Transmitted Disorders: No Hx Urinary Tract Infection: No - PSYCHIATRIC Hx Psychophysiologic Disorder: No Hx Anxiety: No Hx Bipolar Disorder: No Hx Depression: No Hx Emotional Abuse: No Hx Hallucinations: No Hx Panic Symptoms: No Hx Post Traumatic Stress Disorder: No Hx Psychosis: No Hx Physical Abuse: No Hx Schizophrenia: No Hx Sexual Abuse: No - SURGICAL HISTORY Hx Surgeries: No Hx Amputation: No Hx Appendectomy: No Hx Cardiac Catheterization: (2012) Hx Cholecystectomy: No Hx Coronary Stent: Yes Hx Gastric Bypass Surgery: No Hx Hysterectomy: No Hx Joint Replacement: No Hx Kidney Transplant: No Hx Liver Transplant: No Hx Mastectomy: No Hx Musculoskeletal Surgery: No Hx Open Heart Surgery: No Hx Orthopedic Surgery: No Hx Splenectomy: No Hx Valve Replacement: No - ANESTHESIA Hx Anesthesia: Yes Hx Anesthesia Reactions: No Hx Malignant Hyperthermia: No Meds Home Medications: Home Medication List Medication Instructions Recorded Confirmed Type Atorvastatin [Lipitor] 20 mg PO DIN #30 tab 09/16/17 Rx Furosemide [Lasix] 20 mg PO DAILY #30 tab 09/16/17 Rx Lisinopril [Zestril] 20 mg PO DAILY #30 tab 09/16/17 Rx Allergies/Adverse Reactions: Allergies Allergy/AdvReac Type Severity Reaction Status Date / Time No Known Allergies Allergy Verified 06/26/14 22:32 Physical Exam - Constitutional Appears: Well, No Acute Distress - Head Exam Head Exam: ATRAUMATIC, NORMOCEPHALIC - Eye Exam Eye Exam: Normal appearance - ENT Exam ENT Exam: Mucous Membranes Moist - Neck Exam Neck exam: Positive for: Normal Inspection - Respiratory Exam Respiratory Exam: Clear to Auscultation Bilateral, NORMAL BREATHING PATTERN - Cardiovascular Exam Cardiovascular Exam: +S1, +S2 - GI/Abdominal Exam GI & Abdominal Exam: Normal Bowel Sounds, Soft - Rectal Exam Rectal Exam: Deferred - Exam Exam: NORMAL INSPECTION - Extremities Exam Extremities exam: Positive for: normal inspection - Back Exam Back exam: NORMAL INSPECTION - Neurological Exam Neurological exam: Alert, Oriented x3 - Psychiatric Exam Psychiatric exam: Normal Affect, Normal Mood - Skin Skin Exam: Dry, Intact, Normal Color, Warm Results - Vital Signs Recent Vital Signs: Last Vital Signs Temp 97.6 F 09/15/17 16:00 Pulse 65 09/15/17 16:00 Resp 16 09/15/17 16:00 BP 134/73 09/15/17 16:00 Pulse Ox 98 09/15/17 16:00 - Labs Result Diagrams: 09/14/17 06:50 09/14/17 06:50 Assessment & Plan (1) Syncope Status: Acute (2) BPV (benign positional vertigo) Status: Acute (3) CAD (coronary artery disease) Status: Chronic (4) Atrial fibrillation Status: Chronic - Assessment and Plan (Free Text) Plan: Ordered YI stockings for autonomic dysfunction bp control. Neuro - Dr. Phillips: Recommend hydration, maintain bp 140-180, syncope due to postural hypotension Cardio - Dr. Daniel: Continue pradaxa, lipitor, digoxin, betapace, zestril. Dr. Lang: d/c alpha blockers for questionable BPH. d/c sotalol. taper lasix. Start Physical therapy. Reviewed: ECHO (+) Biatrial enlargement, mod septal hypertrophy, mod global LV hypokinesis , mod aortic insuff, mild-mod MR & TR Carotid & Vertebral ultrasound (-) Bilat. 20-39% proximal ICA stenosis, antegrade flow in both vertebral arteries Brain MRI (-)stable limited age-related neuro degenerative changes - Date & Time Date: 09/15/17 Time: 10:00 Decision To Admit - Pt Status Changed To: Hospital Disposition Of: Inpatient Admission - Admit Certification Admit to Inpatient:: After my assessment, the patient will require hospitalization for at least two midnights. This is because of the severity of symptoms shown, intensity of services needed, and/or the medical risk in this patient being treated as an outpatient. - . Bed Request Type: Telemetry Admitting Physician: Josie Ramos <Josie Ramos - Last Filed: 09/16/17 20:00> Present on Admission - Present on Admission Any Indicators Present on Admission: No Physical Exam - Constitutional Appears: Well - Head Exam Head Exam: ATRAUMATIC, NORMAL INSPECTION, NORMOCEPHALIC - Eye Exam Eye Exam: EOMI, Normal appearance, PERRL Pupil Exam: NORMAL ACCOMODATION, PERRL - ENT Exam ENT Exam: Mucous Membranes Moist, Normal Exam - Neck Exam Neck exam: Positive for: Normal Inspection - Respiratory Exam Respiratory Exam: Clear to Auscultation Bilateral, NORMAL BREATHING PATTERN - Cardiovascular Exam Cardiovascular Exam: REGULAR RHYTHM - GI/Abdominal Exam GI & Abdominal Exam: Normal Bowel Sounds, Soft. absent: Tenderness - Rectal Exam Rectal Exam: NORMAL INSPECTION - Exam Exam: Circumcision, NORMAL INSPECTION External exam: NORMAL EXTERNAL EXAM Speculum exam: NORMAL SPECULUM EXAM Bimanual exam: NORMAL BIMANUAL EXAM - Extremities Exam Extremities exam: Positive for: normal inspection - Back Exam Back exam: NORMAL INSPECTION - Neurological Exam Neurological exam: Alert, CN II-XII Intact, Normal Gait, Oriented x3, Reflexes Normal - Psychiatric Exam Psychiatric exam: Normal Affect, Normal Mood - Skin Skin Exam: Dry, Intact, Normal Color, Warm Results - Vital Signs Recent Vital Signs: Last Vital Signs Temp 98.4 F 09/16/17 06:00 Pulse 89 09/16/17 10:00 Resp 18 09/16/17 06:00 BP 151/94 H 09/16/17 09:15 Pulse Ox 100 09/16/17 06:00 - Labs Result Diagrams: 09/14/17 06:50 09/14/17 06:50 Assessment & Plan - Assessment and Plan (Free Text) Plan: pt is seen and examined at bed side ,looking comfortable , agreed all above , d/ d with pt family . especially both daughters , all questions ans , cardio, neuro consults called
[2017-09-16 01:01] VITALS: RESP 18
[2017-09-16 06:34] VITALS: BP 151/94; TEMP 98.4; O2SAT 100
--- NOTE | 2017-09-16 08:50 | PN ---
DATE: 09/16/2017 SUBJECTIVE: The patient is no longer symptomatic. He is ambulating without symptoms. PHYSICAL EXAMINATION: VITAL SIGNS: Blood pressure is 151 systolic. NECK: Negative JVD. LUNGS: Without rales. HEART: S1 and S2. EXTREMITIES: Without edema. LABORATORY DATA: Laboratories were not done today. IMPRESSION: 1. Resolution of his orthostatic hypotension. 2. Atrial fibrillation. 3. Coronary artery disease. 4. Ischemic dilated cardiomyopathy. PLAN: Given these findings, the patient will be discharged with his new change in medications. He will be on Lasix 20 daily with sotalol. We will continue his other medications. From a cardiac perspective, the patient can be discharged. Holden Lang MD
[2017-09-16] MEDS: Digoxin 250 mcg (0.25 mg) Tab PO SCH (09:15)
[2017-09-16 09:17] VITALS: PULSE 89
[2017-09-16] MEDS ORDERED: Digoxin 250 mcg (0.25 mg) Tab PO SCH (10:00)
== END 2017-09-16 11:15 | disposition home or self-care (01) | DRG 312 ==
LOC: ED 12:53 → ERH 18:27 → 3RSO 21:25
PROVIDERS: ADMIT Internal Medicine; ATTEND Internal Medicine
DX: I95.1 Orthostatic hypotension (principal); I42.0 Dilated cardiomyopathy; I11.0 Hypertensive heart disease with heart failure; I50.20 Unspecified systolic (congestive) heart failure; I48.2 Chronic atrial fibrillation; I25.118 Atherosclerotic heart disease of native coronary artery with other forms of angina pectoris; I25.5 Ischemic cardiomyopathy; N40.0 Benign prostatic hyperplasia without lower urinary tract symptoms; K21.9 Gastro-esophageal reflux disease without esophagitis; E78.00 Pure hypercholesterolemia, unspecified; E11.65 Type 2 diabetes mellitus with hyperglycemia; J44.9 Chronic obstructive pulmonary disease, unspecified; I44.7 Left bundle-branch block, unspecified; D64.9 Anemia, unspecified; Z95.5 Presence of coronary angioplasty implant and graft; Z79.01 Long term (current) use of anticoagulants; Z79.84 Long term (current) use of oral hypoglycemic drugs; Z87.891 Personal history of nicotine dependence; I25.2 Old myocardial infarction

== ENCOUNTER 2017-10-13 20:47 | Observation (INO) | payer MEDICARE ==
[2017-10-13 20:53] VITALS: BMI 31.2
[2017-10-13 21:34] LABS: BASO # 0.03 K/mm3 (0.0-2.0); BASO % 0.4 % (0.0-3.0); EOS # 0.2 (0.0-0.7); EOS % 2.8 % (1.5-5.0); GRAN # 4.97 (1.4-6.5); GRAN % 65.6 % (50.0-68.0); HEMATOCRIT 42.8 % (42.0-52.0); LYMPH # 1.6 (1.2-3.4); LYMPH % 21.7 % (22.0-35.0); MEAN CELL VOLUME 82.3 fl (80.0-105.0); MEAN CORPUSCULAR HEMOGLOBIN 28.1 pg (25.0-35.0); MEAN CORPUSCULAR HGB CONC 34.1 g/dl (31.0-37.0); MEAN PLATELET VOLUME 10.5 fl (7.0-11.0); MONO # 0.7 (0.1-0.6); MONO % 9.5 % (1.0-6.0); RED CELL DISTRIBUTION WIDTH 13.3 % (11.5-14.5); WHITE BLOOD COUNT 7.6 10^3/ul (4.5-11.0)
[2017-10-13 21:47] LABS: ALB/GLOB RATIO 1.4 (1.1-1.8); ALKALINE PHOSPHATASE 64 U/L (38-126); ALT/SGPT 35 U/L (7-56); AST/SGOT 27 U/L (17-59); BILIRUBIN,TOTAL 0.8 mg/dL (0.2-1.3); BLOOD UREA NITROGEN 16 mg/dL (7-21); CALCIUM 9.6 mg/dL (8.4-10.5); CARBON DIOXIDE 23 mmol/L (21-33); CHLORIDE 107 mmol/L (98-107); GFR AFRICAN-AMERICAN > 60; GLUCOSE,RANDOM 140 mg/dL (70-110); MAGNESIUM 1.8 mg/dL (1.7-2.2); POTASSIUM 3.9 mmol/L (3.6-5.0); SODIUM 141 mmol/L (132-148); TOTAL PROTEIN 7.1 g/dL (5.8-8.3)
[2017-10-13 21:58] LABS: TROPONIN I 0.03 ng/mL
[2017-10-13 22:01] LABS: INR 1.26 (0.93-1.08); PARTIAL THROMBOPLASTIN TIME 46.7 Seconds (25.1-36.5)
--- NOTE | 2017-10-13 22:57 | ED PDOC ---
Arrival/HPI - General Chief Complaint: Chest Pain Time Seen by Provider: 10/13/17 20:54 Historian: Patient - History of Present Illness Narrative History of Present Illness (Text): 10/13/17 22:56 A 62 year old male, whose past medical history includes systolic CHF, GERD, IA, hypertension, diabetes and BPPV, presents to the emergency department complaining of chest pain, palpitations and shortness of breath. Patient reports symptoms developed while he was driving his car. 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 Past Medical History - Provider Review Nursing Documentation Reviewed: Yes - Infectious Disease Hx of Infectious Diseases: None - Tetanus Immunization Tetanus Immunization: Unknown - Cardiac Hx Atrial Fibrillation: Yes Hx Congestive Heart Failure: Yes Hx IA: Yes Hx Hypertension: Yes - Pulmonary Hx Chronic Obstructive Pulmonary Disease (COPD): Yes - Neurological Hx Neurological Disorder: Yes HX Cerebrovascular Accident: No Other/Comment: Bppv - HEENT Hx HEENT Disorder: No Hx Blind: No Hx Cataracts: Yes (removed) Hx Deafness: No Hx Difficulty Chewing: No Hx Epistaxis: No Hx Glaucoma: No Hx Macular Degeneration: No Other/Comment: Retinal detachment repair - Renal Hx Renal Failure: No - Endocrine/Metabolic Hx Diabetes Mellitus Type 1: No Hx Diabetes Mellitus Type 2: Yes Hx Hypothyroidism: No - Hematological/Oncological Hx Blood Disorders: No Hx AIDS: No Hx Anemia: No Hx Cancer: No Hx Chemotherapy: No Hx Cirrhosis: No Hx Hemophilia: No Hx Hepatitis A: No Hx Hepatitis B: No Hx Hepatitis C: No Hx Metastasis: No Hx Shingles: No Hx Sickle Cell Disease: No Hx Unexplained Bleeding: No - Integumentary Hx Dermatological Disorder: No Hx Basal Cell Carcinoma: No Hx Eczema: No Hx Melanoma: No Hx Psoriasis: No Hx Squamous Cell Carcinoma: No - Musculoskeletal/Rheumatological Hx Falls: Yes - Gastrointestinal Hx Gastrointestinal Disorders: No Hx Colostomy: No Hx Crohn's Disease: No Hx Diverticulitis: No Hx Gall Bladder Disease: No Hx Gastroesophageal Reflux: No Hx Ileostomy: No Hx Liver Failure: No Hx Pancreatitis: No HX Swallowing Problems: No - Genitourinary/Gynecological Hx Genitourinary Disorders: No Hx Hematuria: No Hx Incontinence: No Hx Prostate Problems: No Hx Sexually Transmitted Diseases: No Hx Urinary Tract Infection: No - Psychiatric Hx Psychophysiologic Disorder: No Hx Anxiety: No Hx Bipolar Disorder: No Hx Depression: No Hx Emotional Abuse: No Hx Hallucinations: No Hx Panic Disorder: No Hx Post Traumatic Stress Disorder: No Hx Psychosis: No Hx Physical Abuse: No Hx Schizophrenia: No Hx Sexual Abuse: No Hx Substance Use: No - Surgical History Hx Cardiac Catheterization: Yes Other/Comment: stents - Anesthesia Hx Anesthesia: Yes Hx Anesthesia Reactions: No Hx Malignant Hyperthermia: No - Suicidal Assessment Feels Threatened In Home Enviroment: No Family/Social History - Physician Review Nursing Documentation Reviewed: Yes Family/Social History: No Known Family HX Smoking Status: Former Smoker Hx Alcohol Use: No Hx Substance Use: No Hx Substance Use Treatment: No Allergies/Home Meds Allergies/Adverse Reactions: Allergies No Known Allergies Allergy (Verified 10/13/17 20:56) Home Medications: Home Meds Medication Instructions Recorded Confirmed Sitagliptin Phos/Metformin HCl 1 each PO DAILY 09/16/17 10/13/17 [Janumet Xr 100-1,000 mg Tablet] metFORMIN ER [glucoPHAGE XR] 750 mg PO DAILY 09/16/17 10/13/17 Aspirin [Adult Low Dose Aspirin EC] 81 mg PO DAILY 09/22/17 10/13/17 Digoxin [Lanoxin] 250 mcg PO DAILY 09/22/17 10/13/17 Albuterol HFA [Ventolin HFA 90 1 puff IH DAILY 10/13/17 10/13/17 mcg/actuation (8 g)] Review of Systems - Physician Review All systems were reviewed & negative as marked: Yes - Review of Systems Constitutional: absent: Fevers Respiratory: SOB Cardiovascular: Chest Pain, Palpitations Neurological: absent: Headache, Dizziness Physical Exam Vital Signs Reviewed: Yes Vital Signs Temp Pulse Resp BP Pulse Ox 10/14/17 02:26 95 H 18 149/93 H 96 10/13/17 23:50 142/102 H 10/13/17 23:25 96 H 18 152/89 H 97 10/13/17 21:00 97.5 F L 105 H 24 129/103 H 96 Temperature: Afebrile Blood Pressure: Hypertensive Pulse: Tachycardic Respiratory Rate: Normal Appearance: Positive for: Well-Appearing, Non-Toxic, Comfortable Pain Distress: None Mental Status: Positive for: Alert and Oriented X 3 - Systems Exam Head: Present: Atraumatic, Normocephalic Pupils: Present: PERRL Extroacular Muscles: Present: EOMI Conjunctiva: Present: Normal Mouth: Present: Moist Mucous Membranes Neck: Present: Normal Range of Motion Respiratory/Chest: Present: Rales (at bases). No: Accessory Muscle Use Cardiovascular: Present: Normal S1, S2, Irregular Rhythm. No: Murmurs Abdomen: Present: Normal Bowel Sounds. No: Tenderness, Distention, Peritoneal Signs Back: Present: Normal Inspection Upper Extremity: Present: Normal Inspection. No: Cyanosis, Edema Lower Extremity: Present: Normal Inspection. No: Edema Neurological: Present: GCS=15, CN II-XII Intact, Speech Normal Skin: Present: Warm, Dry, Normal Color. No: Rashes Psychiatric: Present: Alert, Oriented x 3, Normal Insight, Normal Concentration Medical Decision Making ED Course and Treatment: 10/13/17 22:55 Impression: A 62 year old male with chest pain, palpitations and shortness of breath. Plan: -- EKG -- chest xray -- CT head -- labs -- Urinalysis -- Reassess and disposition Prior Visits: Notes and results from previous visits were reviewed. Patient was last seen in the emergency department on 09/12/17 for evaluation of syncopal episodes. Progress Notes: EKG: Ordered, reviewed, and independently interpreted the EKG. Rate : 115 BPM Rhythm : a fib Interpretation : left bundle branch block Comparison : No change from previous EKG Chest xray: Mild CHF, as read by me. CT Head Without Intravenous Contrast FINDINGS: Brain: Mild atrophy. No intracranial hemorrhage. No mass. Minimal decreased attenuation within periventricular white matter. Probable chronic lacunar infarcts within basal ganglia. No definite edema. Ventricles: No hydrocephalus. Bones/joints: No acute fracture. Soft tissues: Unremarkable. Sinuses: Scattered minimal mucosal thickening. Mastoid air cells: No mastoid effusion. Orbits: Unremarkable as visualized. IMPRESSION: 1. Nonspecific white matter changes. Acute infarction may be CT occult within first 24 hours. If a focal deficit persists, consider followup CT or MRI for further evaluation. 2. Incidental/non-acute findings are described above. Dictated and Authenticated by: Chepe Beltrán MD 10/13/2017 11:53 PM Eastern Time ([place] & [place]) case d/w dr atwood will tele obs - Lab Interpretations Lab Results: 10/13/17 21:25 12/19/17 21:25 Lab Results 10/13/17 21:25: Sodium 141, Potassium 3.9, Chloride 107, Carbon Dioxide 23, Anion Gap 15, BUN 16, Creatinine 1.2, Est GFR ( Amer) > 60, Est GFR (Non- Af Amer) > 60, Random Glucose 140 H, Calcium 9.6, Magnesium 1.8, Total Bilirubin 0.8, AST 27, ALT 35, Alkaline Phosphatase 64, Lactate Dehydrogenase 411, Total Creatine Kinase 76, Troponin I 0.03 D, NT-Pro-B Natriuret Pep 683 H , Total Protein 7.1, Albumin 4.1, Globulin 3.0, Albumin/Globulin Ratio 1.4 10/13/17 21:25: PT 13.8 H, INR 1.26 H, APTT 46.7 H 10/13/17 21:25: WBC 7.6, RBC 5.20, Hgb 14.6, Hct 42.8, MCV 82.3, MCH 28.1, MCHC 34.1, RDW 13.3, Plt Count 192, MPV 10.5, Gran % 65.6, Lymph % (Auto) 21.7 L, Rich % (Auto) 9.5 H, Eos % (Auto) 2.8, Baso % (Auto) 0.4, Gran # 4.97, Lymph # 1.6, Rich # 0.7 H, Eos # 0.2, Baso # 0.03 I have reviewed the lab results: Yes - RAD Interpretation Radiology Orders: 10/13/17 21:10 HEAD W/O CONTRAST [CT] Stat CHEST PORTABLE [RAD] Stat - EKG Interpretation Interpreted by ED Physician: Yes Type: 12 lead EKG - Medication Orders Current Medication Orders: Acetaminophen (Tylenol 325mg Tab) 650 mg PO Q4H PRN PRN Reason: Fever >100.5 F Discontinued Medications Furosemide (Lasix) 40 mg IVP ONCE ONE Stop: 10/13/17 22:12 Last Admin: 10/13/17 23:50 Dose: 40 mg MAR Blood Pressure Document 10/13/17 23:50 SS (Rec: 10/13/17 23:51 SS [id number]) Blood Pressure Blood Pressure (100/60-150/90) 142/102 IVP Administration Document 10/13/17 23:50 SS (Rec: 10/13/17 23:51 SS [id number]) Charges for Administration # of IVP Administrations 1 - Scribe Statement The provider has reviewed the documentation as recorded by the Caraibplacido Merlos Provider Scribe Attestation: All medical record entries made by the Scribe were at my direction and personally dictated by me. I have reviewed the chart and agree that the record accurately reflects my personal performance of the history, physical exam, medical decision making, and the department course for this patient. I have also personally directed, reviewed, and agree with the discharge instructions and disposition. Disposition/Present on Arrival - Present on Arrival Any Indicators Present on Arrival: No History of DVT/PE: No History of Uncontrolled Diabetes: No Urinary Catheter: No History of Decub. Ulcer: No History Surgical Site Infection Following: None - Disposition Have Diagnosis and Disposition been Completed?: Yes Diagnosis: Atrial fibrillation, Congestive heart failure Disposition: HOSPITALIZED Disposition Time: 01:00 Condition: GOOD
--- NOTE | 2017-10-13 23:53 | CT ---
EXAM: CT Head Without Intravenous Contrast CLINICAL HISTORY: 62 years old, male; Signs and symptoms; Dizziness; Additional info: CONDE TECHNIQUE: Axial computed tomography images of the head/brain without intravenous contrast. All CT scans at this facility use one or more dose reduction techniques, viz.: automated exposure control; ma/kV adjustment per patient size (including targeted exams where dose is matched to indication; i.e. head); or iterative reconstruction technique. COMPARISON: CT - HEAD W/O CONTRAST 2017-09-12 13:42 FINDINGS: Brain: Mild atrophy. No intracranial hemorrhage. No mass. Minimal decreased attenuation within periventricular white matter. Probable chronic lacunar infarcts within basal ganglia. No definite edema. Ventricles: No hydrocephalus. Bones/joints: No acute fracture. Soft tissues: Unremarkable. Sinuses: Scattered minimal mucosal thickening. Mastoid air cells: No mastoid effusion. Orbits: Unremarkable as visualized. IMPRESSION: 1. Nonspecific white matter changes. Acute infarction may be CT occult within first 24 hours. If a focal deficit persists, consider followup CT or MRI for further evaluation. 2. Incidental/non-acute findings are described above.
[2017-10-14 03:12] LABS: URINE BILIRUBIN NEGATIVE (NEGATIVE); URINE BLOOD NEGATIVE (NEGATIVE); URINE GLUCOSE (UA) NEGATIVE (NEGATIVE); URINE KETONE NEGATIVE (NEGATIVE); URINE LEUKOCYTE ESTERASE NEGATIVE Leu/uL (NEGATIVE); URINE PROTEIN 100 mg/dL (<30 mg/dL); URINE UROBILINOGEN 0.2 E.U./dL (<1 E.U./dL)
[2017-10-14 03:23] LABS: URINE APPEARANCE SL CLOUDY (CLEAR); URINE COLOR YELLOW (YELLOW)
[2017-10-14 03:24] LABS: URINE EPITHELIAL CELLS 0 - 2 /hpf (0-5); URINE RBC 0 - 2 /hpf (0-2); URINE WBC 0 - 2 /hpf (0-6)
--- NOTE | 2017-10-14 08:34 | RAD ---
HISTORY: Chest pain COMPARISON: 09/12/2017 FINDINGS: LUNGS: No active pulmonary disease. PLEURA: No significant pleural effusion identified, no pneumothorax apparent. CARDIOVASCULAR: No radiographic findings to suggest acute or significant cardiovascular disease. OSSEOUS STRUCTURES: No significant abnormalities. VISUALIZED UPPER ABDOMEN: Normal. OTHER FINDINGS: None. IMPRESSION: No active disease. No significant interval change compared to the prior examination(s).
[2017-10-14] MEDS ORDERED: SACUBITRIL 24mg/VALSARTAN 26mg tab PO SCH (10:00)
--- NOTE | 2017-10-14 10:22 | CARD ---
APPROVED REPORT EKG Measurement Heart [id number] <Conclusion> Atrial fibrillation with rapid ventricular response Left bundle branch block Abnormal ECG
[2017-10-14] MEDS ORDERED: Enoxaparin 80 mg Syringe SC STA (10:26)
[2017-10-14] MEDS ORDERED: Iohexol 350mgl/ml 50 ML ONE (11:08)
[2017-10-14] MEDS ORDERED: Phenylephrine 10 mg/ml Inj ONE (11:10)
[2017-10-14 11:20] LABS: INR 1.19 (0.93-1.08)
[2017-10-14] MEDS ORDERED: Albuterol 0.083% Inhal Sol (2.5 mg/3 mL) UD IH SCH (11:45)
--- NOTE | 2017-10-14 11:51 | CP.PCM.HP ---
<Laney Eric - Last Filed: 10/14/17 11:47> History of Present Illness - History of Present Illness History of Present Illness: 62 yr male w/ history of systolic CHF, GERD, OK, HTN, DM, and BPPV. He came to [facility] [place] L sided chest discomfort while driving his car. He called it a sensation of "queasiness." He states that in 2013 he had cardiac stents placed secondary to CAD and he wanted to make sure "his heart was okay." He currently denies any chest pain, SOB, N/V, diarrhea, constipation, fever, chills, urinary changes or distress. Present on Admission - Present on Admission Any Indicators Present on Admission: No History of DVT/PE: No History of Uncontrolled Diabetes: No Urinary Catheter: No Decubitus Ulcer Present: No Review of Systems - Constitutional Constitutional: As Per HPI - EENT Eyes: As Per HPI Ears: As Per HPI Nose/Mouth/Throat: As Per HPI - Cardiovascular Cardiovascular: As Per HPI - Respiratory Respiratory: As Per HPI - Gastrointestinal Gastrointestinal: As Per HPI - Genitourinary Genitourinary: As Per HPI - Musculoskeletal Musculoskeletal: As Per HPI - Integumentary Integumentary: As Per HPI - Neurological Neurological: As Per HPI - Psychiatric Psychiatric: As Per HPI - Endocrine Endocrine: As Per HPI Past Patient History - Infectious Disease Hx of Infectious Diseases: None - Tetanus Immunizations Tetanus Immunization: Unknown - Past Medical History & Family History Past Family History: Reviewed and not pertinent - Past Social History Smoking Status: Former Smoker - CARDIAC Hx Cardiac Disorders: Yes Hx Atrial Fibrillation: Yes Hx Congestive Heart Failure: Yes Hx Heart Attack: Yes Hx Hypertension: Yes - PULMONARY Hx Chronic Obstructive Pulmonary Disease (COPD): Yes - NEUROLOGICAL Hx Neurological Disorder: Yes HX Cerebrovascular Accident: No Other/Comment: Bppv - HEENT Hx HEENT Problems: No Hx Blind: No Hx Cataracts: Yes (removed) Hx Deafness: No Hx Difficulty Chewing: No Hx Epistaxis: No Hx Glaucoma: No Hx Macular Degeneration: No Other/Comment: Retinal detachment repair - RENAL Hx Renal Failure: No - ENDOCRINE/METABOLIC Hx Diabetes Mellitus Type 1: No Hx Diabetes Mellitus Type 2: Yes Hx Hypothyroidism: No - HEMATOLOGICAL/ONCOLOGICAL Hx Blood Disorders: No Hx AIDS: No Hx Anemia: No Hx Cancer: No Hx Chemotherapy: No Hx Cirrhosis: No Hx Hemophilia: No Hx Hepatitis A: No Hx Hepatitis B: No Hx Hepatitis C: No Hx Metastesis: No Hx Shingles: No Hx Sickle Cell Disease: No Hx Unexplained Bleeding: No - INTEGUMENTARY Hx Dermatological Problems: No Hx Basil Cell: No Hx Eczema: No Hx Melanoma: No Hx Psoriasis: No Hx Squamous Cell: No - MUSCULOSKELETAL/RHEUMATOLOGICAL Hx Falls: Yes - GASTROINTESTINAL Hx Gastrointestinal Disorders: No Hx Colostomy: No Hx Crohn's Disease: No Hx Diverticulitis: No Hx Gall Bladder Disease: No Hx Gastroesophageal Reflux: No Hx Ileostomy: No Hx Liver Failure: No Hx Pancreatitis: No HX Swallowing Problems: No - GENITOURINARY/GYNECOLOGICAL Hx Genitourinary Disorders: No Hx Hematuria: No Hx Incontinence: No Hx Prostate Problems: No Hx Sexually Transmitted Disorders: No Hx Urinary Tract Infection: No - PSYCHIATRIC Hx Psychophysiologic Disorder: No Hx Anxiety: No Hx Bipolar Disorder: No Hx Depression: No Hx Emotional Abuse: No Hx Hallucinations: No Hx Panic Symptoms: No Hx Post Traumatic Stress Disorder: No Hx Psychosis: No Hx Physical Abuse: No Hx Schizophrenia: No Hx Sexual Abuse: No Hx Substance Use: No - SURGICAL HISTORY Hx Cardiac Catheterization: Yes Other/Comment: stents - ANESTHESIA Hx Anesthesia: Yes Hx Anesthesia Reactions: No Hx Malignant Hyperthermia: No Meds Allergies/Adverse Reactions: Allergies Allergy/AdvReac Type Severity Reaction Status Date / Time No Known Allergies Allergy Verified 10/13/17 20:56 Physical Exam - Constitutional Appears: Well - Head Exam Head Exam: ATRAUMATIC, NORMAL INSPECTION, NORMOCEPHALIC - Eye Exam Eye Exam: EOMI, Normal appearance, PERRL - ENT Exam ENT Exam: Mucous Membranes Moist, Normal Exam - Neck Exam Neck exam: Positive for: Normal Inspection - Respiratory Exam Respiratory Exam: Clear to Auscultation Bilateral, NORMAL BREATHING PATTERN - Cardiovascular Exam Cardiovascular Exam: Irregular Rhythm, +S1, +S2 - GI/Abdominal Exam GI & Abdominal Exam: Normal Bowel Sounds, Soft. absent: Tenderness - Back Exam Back exam: NORMAL INSPECTION - Neurological Exam Neurological exam: Alert, CN II-XII Intact, Normal Gait, Oriented x3, Reflexes Normal - Psychiatric Exam Psychiatric exam: Normal Affect, Normal Mood - Skin Skin Exam: Dry, Intact, Normal Color, Warm Results - Vital Signs Recent Vital Signs: Last Vital Signs Temp 98.2 F 10/14/17 06:00 Pulse 85 10/14/17 10:00 Resp 18 10/14/17 06:00 BP 165/78 H 10/14/17 06:00 Pulse Ox 95 10/14/17 06:00 - Labs Result Diagrams: 10/13/17 21:25 10/13/17 21:25 Labs: Laboratory Results - last 24 hr 10/14/17 10/14/17 02:44 11:00 PT 13.1 H INR 1.19 H Urine Color Yellow Urine Appearance Sl cloudy Urine pH 6.0 Ur Specific Bertram 1.010 Urine Protein 100 H Urine Glucose (UA) Negative Urine Ketones Negative Urine Blood Negative Urine Nitrate Negative Urine Bilirubin Negative Urine Urobilinogen 0.2 Ur Leukocyte Esterase Negative Urine RBC 0 - 2 Urine WBC 0 - 2 Ur Epithelial Cells 0 - 2 - Impressions Impression: Admit to Telemetry Assessment & Plan (1) Chest pain Status: Acute (2) CAD (coronary artery disease) Status: Chronic (3) Atrial fibrillation Status: Chronic (4) COPD (chronic obstructive pulmonary disease) Status: Acute (5) Hyperglycemia Status: Acute - Assessment and Plan (Free Text) Plan: Admit to telemetry. Consults: [employer] Professional - Dr. Lang Reviewed: CXR = (+) WNL, no signficant change from prior examination ECG = (+) afib w/RVR, L BBB, ABN CT head = (+) Nonspecific white matter changes. acute infraction may be occult within - Date & Time Date: 10/14/17 Time: 10:05 Decision To Admit - Pt Status Changed To: Hospital Disposition Of: Observation - . Bed Request Type: Telemetry (Chest pain, h/o: CAD w/ stents) <Josie Ramos - Last Filed: 10/14/17 14:41> Results - Vital Signs Recent Vital Signs: Last Vital Signs Temp 97.5 F L 10/14/17 12:50 Pulse 69 10/14/17 14:20 Resp 16 10/14/17 14:20 BP 152/75 H 10/14/17 14:20 Pulse Ox 97 10/14/17 12:50 - Labs Result Diagrams: 10/13/17 21:25 10/13/17 21:25 Labs: Laboratory Results - last 24 hr 10/14/17 10/14/17 10/14/17 02:44 07:28 11:00 PT INR POC Glucose (mg/dL) 130 H Troponin I Triglycerides Cholesterol LDL Cholesterol Direct HDL Cholesterol TSH 3rd Generation 1.20 Urine Color Yellow Urine Appearance Sl cloudy Urine pH 6.0 Ur Specific Bertram 1.010 Urine Protein 100 H Urine Glucose (UA) Negative Urine Ketones Negative Urine Blood Negative Urine Nitrate Negative Urine Bilirubin Negative Urine Urobilinogen 0.2 Ur Leukocyte Esterase Negative Urine RBC 0 - 2 Urine WBC 0 - 2 Ur Epithelial Cells 0 - 2 10/14/17 10/14/17 11:00 11:00 PT 13.1 H INR 1.19 H POC Glucose (mg/dL) Troponin I 0.03 Triglycerides 155 Cholesterol 131 LDL Cholesterol Direct 83 HDL Cholesterol 33 TSH 3rd Generation Urine Color Urine Appearance Urine pH Ur Specific Bertram Urine Protein Urine Glucose (UA) Urine Ketones Urine Blood Urine Nitrate Urine Bilirubin Urine Urobilinogen Ur Leukocyte Esterase Urine RBC Urine WBC Ur Epithelial Cells Assessment & Plan - Assessment and Plan (Free Text) Plan: i know this pt from long time , was seen in [place] last month , with f/u pcp . cardio and ent , came back wit chf , cardiology consult called , meds restartd , agreed all above , chart ,meds and labs noted
[2017-10-14] MEDS: Midazolam 2 MG/2 ML VIAL ONE ×4 (11:58→13:12)
[2017-10-14] MEDS: Lidocaine 2% Inj (20ml) ONE ×2 (12:07→13:11)
--- NOTE | 2017-10-14 12:57 | CON ---
DATE: 10/14/2017 CARDIOLOGY CONSULTATION HISTORY: The patient is a 62-year-old male with multiple cardiac risk factors including diabetes mellitus, hypertension, and hypercholesterolemia, who is status post multivessel PTCA in the past and has a documented ischemic cardiomyopathy. He has been admitted for CHF symptoms in the past as well as angina. He presents now with multiple complaints including chest pain, transient shortness of breath, palpitations, and dizziness. 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 REVIEW OF SYSTEMS: A 14-point review of systems is reviewed in detail. Multiple cardiac symptoms as noted above. PHYSICAL EXAMINATION: VITAL SIGNS: Blood pressure is 165/78, the heart rate is in the 80s. NECK: Negative JVD. LUNGS: Currently without edema. EXTREMITIES: Without edema. LABORATORY DATA: EKG shows atrial fibrillation with a left bundle branch block. Laboratories include a troponin of 0.03. ProBNP is 683, hemoglobin is 14.6. IMPRESSION: 1. Recurrent angina. 2. Mild congestive heart failure. 3. Ischemic dilated cardiomyopathy. 4. Diabetes mellitus. 5. Hypertension. 6. Hypercholesterolemia. Given these findings, we will start the patient on Entresto for his recurrent CHF symptoms. In addition, given his recurrent angina symptoms, we will proceed to cardiac catheterization in the morning. Holden Lang MD
[2017-10-14] MEDS ORDERED: Sodium Chloride 0.9% 1,000 ML IV SCH (13:00)
[2017-10-14] MEDS: HEPARIN SODIUM/NS 2,000 ML IV ONE ×2 (13:11→14:35)
[2017-10-14] MEDS: Iodixanol 320 MG/ML 100 ML BOTTLE IV ONE ×2 (13:12→14:33)
[2017-10-14] MEDS: Iodixanol 320 MG/ML 200 ML BOTTLE IV ONE ×2 (13:12→14:34)
[2017-10-14 13:14] LABS: TROPONIN I 0.03 ng/mL
[2017-10-14] MEDS: Digoxin 250 mcg (0.25 mg) Tab PO SCH (13:17)
[2017-10-14 13:26] VITALS: O2SAT 97
[2017-10-14 13:47] LABS: THYROID STIMULATING HORMONE 1.2 mIU/mL (0.46-4.68)
[2017-10-14 18:39] VITALS: RESP 18
--- NOTE | 2017-10-14 21:37 | CARDCATH ---
PROCEDURE DATE: 10/14/2017 HISTORY: The patient is a 62-year-old male with a history of PTCA in the past who presents with chest pain, palpitations, dyspnea. The patient had a troponin that was negative. Because of his ongoing symptoms including symptoms at rest, a cardiac catheterization was recommended. PROCEDURE: Left heart catheterization with coronary angiography and left ventriculogram. The right femoral artery was cannulated with 6-Dutch sheath. There were no complications. I performed moderate sedation, which included the presence of an independent trained observer that assisted in monitoring the patient's level of consciousness and physiologic status. After administration of Versed and fentanyl, my intra service time was 15 minutes. Findings on catheterization revealed a left ventricle that contracted with mild LV hypokinesis. Estimated ejection fraction is 45% to 50%. His coronary anatomy revealed a right dominant circulation. The RCA revealed diffuse intimal irregularities without critical lesions. The left main artery was unremarkable. The LAD revealed a patent stent with a 50% stenoses at the takeoff of the septal head of marketing and diagonal vessel. This is unchanged from his previous catheterization from 2014. The circumflex artery and obtuse marginal branches revealed intimal irregularities without significant stenoses. Angio-Seal was used to close the femoral artery site. The patient tolerated the procedure well. In summary, the procedure revealed patent stents in his coronary arteries with a residual 50% stenosis in the midportion of the LAD which is unchanged from his previous study. LV function is improved from his previous noninvasive studies. Estimated ejection fraction is 45% to 50%. Given these findings, the patient's chest pain and dyspnea is not of cardiac in origin. We will restart him on his Pradaxa for his atrial fibrillation. In addition, I have discussed with the family about evaluation with a assistant operator for COPD as well as for treatment of his sleep apnea. Holden Lang MD
[2017-10-14] MEDS: Insulin Reg-LOW-Coverage SC SCH (22:27)
[2017-10-15 07:16] LABS: T4 8.3 ug/dL (5.5-11.0)
[2017-10-15 07:18] LABS: HEMATOCRIT 46.5 % (42.0-52.0); MEAN CELL VOLUME 83.2 fl (80.0-105.0); MEAN CORPUSCULAR HEMOGLOBIN 27.7 pg (25.0-35.0); MEAN CORPUSCULAR HGB CONC 33.3 g/dl (31.0-37.0); MEAN PLATELET VOLUME 11.2 fl (7.0-11.0); RED CELL DISTRIBUTION WIDTH 13.5 % (11.5-14.5); WHITE BLOOD COUNT 9.5 10^3/ul (4.5-11.0)
[2017-10-15 07:30] LABS: THYROID STIMULATING HORMONE 1.12 mIU/mL (0.46-4.68)
[2017-10-15] MEDS: Insulin Reg-LOW-Coverage SC SCH ×2 (07:33→11:49)
[2017-10-15 07:59] LABS: BLOOD UREA NITROGEN 13 mg/dL (7-21); CALCIUM 9.6 mg/dL (8.4-10.5); CARBON DIOXIDE 25 mmol/L (21-33); CHLORIDE 107 mmol/L (98-107); GFR AFRICAN-AMERICAN > 60; GLUCOSE,RANDOM 112 mg/dL (70-110); POTASSIUM 4.2 mmol/L (3.6-5.0); SODIUM 143 mmol/L (132-148)
[2017-10-15] MEDS: Digoxin 250 mcg (0.25 mg) Tab PO SCH (09:25)
[2017-10-15 09:27] VITALS: PULSE 105
[2017-10-15] MEDS ORDERED: Albuterol 0.083% Inhal Sol (2.5 mg/3 mL) UD IH SCH ×2 (10:00→11:01)
--- NOTE | 2017-10-15 11:27 | PN ---
DATE: 10/15/2017 SUBJECTIVE: The patient is without complaints. PHYSICAL EXAMINATION: VITAL SIGNS: Blood pressure is 145/99, heart rate is 100. NECK: Negative JVD. LUNGS: Without rales. HEART: Reveal S1, S2. EXTREMITIES: Without edema. The right groin site is stable. LABORATORY DATA: Hemoglobin is 15.5. Chemistries: BUN and creatinine are unremarkable. IMPRESSION: 1. Stable post cardiac catheterization. 2. Chronic atrial fibrillation. 3. Diabetes mellitus. 4. History of congestive heart failure, but none now. 5. Transient dizziness, which is now resolved. 6. Coronary artery disease. PLAN: Given these findings, the patient is doing well. His LV function has improved. From a cardiac perspective, the patient can be discharged. We will decrease his Lasix from 20 mg daily to 20 mg every other day. Follow up and instructions have been given to the patient. Holden Lang MD
[2017-10-15 12:06] VITALS: BP 156/88; PULSE 72; TEMP 98
== END 2017-10-15 14:23 | disposition home or self-care (01) ==
LOC: ED 20:47 → ERH 10-14 00:33 → 3RSO 10-14 04:00 → 2RSO 10-14 12:49 → INTOOBSV 10-14 21:19 → OBSVTOIN 10-14 21:19
PROVIDERS: ADMIT Internal Medicine; ATTEND Internal Medicine
DX: I25.119 Atherosclerotic heart disease of native coronary artery with unspecified angina pectoris (principal); I11.0 Hypertensive heart disease with heart failure; I50.22 Chronic systolic (congestive) heart failure; I48.2 Chronic atrial fibrillation; I42.0 Dilated cardiomyopathy; I25.5 Ischemic cardiomyopathy; H81.10 Benign paroxysmal vertigo, unspecified ear; J44.9 Chronic obstructive pulmonary disease, unspecified; G47.30 Sleep apnea, unspecified; K21.9 Gastro-esophageal reflux disease without esophagitis; E11.65 Type 2 diabetes mellitus with hyperglycemia; I25.2 Old myocardial infarction; E78.00 Pure hypercholesterolemia, unspecified; Z79.4 Long term (current) use of insulin; Z87.891 Personal history of nicotine dependence; Z95.5 Presence of coronary angioplasty implant and graft
CPT/HCPCS: 36415; 70450; 71010; 80048; 80053; 80061; 81001; 82550; 82948; 83036; 83615; 83735; 83880; 84436; 84443; 84484; 85025; 85027; 85610; 85730; 86140; 93005; 93458; 94640; 94760; 96374; 99152; 99285; C1760; C1769; C2629; G0378; J1644; J1940; J2250; J3010; J7040; Q9967

== ENCOUNTER 2018-02-25 09:31 | Inpatient (IN) | payer MEDICARE, OTHER ==
--- NOTE | 2018-02-25 09:55 | ED PDOC ---
Arrival/HPI - General Chief Complaint: Shortness Of Breath Time Seen by Provider: 02/25/18 09:50 Historian: Patient - History of Present Illness Narrative History of Present Illness (Text): 02/25/18 09:50 62 year old male whose PMH includes atrial fibrillation, CHF, OK, hypertension, COPD, diabetes, and coronary stents, who presents to the emergency department complaining of shortness of breath that has become worse since 3 days ago. Patient reports also having mid-sternal "pushing" chest pain that is intermittent and last 2 seconds. He notes starting a new medication Esbriet, which he takes 2 tablets, 3 times a day. Patient denies any cough, fever, abdominal pain, nausea, vomiting, diarrhea, dysuria, hematuria, or other complaints. PMD: Dr. Hickman Block Operator: Dr. Lam Time/Duration: < week Symptom Onset: Gradual Symptom Course: Worsening Context: Home Past Medical History - Provider Review Nursing Documentation Reviewed: Yes - Infectious Disease Hx of Infectious Diseases: None - Tetanus Immunization Tetanus Immunization: Unknown - Cardiac Hx Cardiac Disorders: Yes Hx Atrial Fibrillation: Yes Hx Congestive Heart Failure: Yes Hx OK: Yes Hx Hypertension: Yes - Pulmonary Hx Chronic Obstructive Pulmonary Disease (COPD): Yes - Neurological Hx Neurological Disorder: Yes HX Cerebrovascular Accident: No Other/Comment: Bppv - HEENT Hx HEENT Disorder: No Hx Blind: No Hx Cataracts: Yes (removed) Hx Deafness: No Hx Difficulty Chewing: No Hx Epistaxis: No Hx Glaucoma: No Hx Macular Degeneration: No Other/Comment: Retinal detachment repair - Renal Hx Renal Failure: No - Endocrine/Metabolic Hx Diabetes Mellitus Type 1: No Hx Diabetes Mellitus Type 2: Yes Hx Hypothyroidism: No - Hematological/Oncological Hx Blood Disorders: No Hx AIDS: No Hx Anemia: No Hx Cancer: No Hx Chemotherapy: No Hx Cirrhosis: No Hx Hemophilia: No Hx Hepatitis A: No Hx Hepatitis B: No Hx Hepatitis C: No Hx Metastasis: No Hx Shingles: No Hx Sickle Cell Disease: No Hx Unexplained Bleeding: No - Integumentary Hx Dermatological Disorder: No Hx Basal Cell Carcinoma: No Hx Eczema: No Hx Melanoma: No Hx Psoriasis: No Hx Squamous Cell Carcinoma: No - Musculoskeletal/Rheumatological Hx Falls: Yes - Gastrointestinal Hx Gastrointestinal Disorders: No Hx Colostomy: No Hx Crohn's Disease: No Hx Diverticulitis: No Hx Gall Bladder Disease: No Hx Gastroesophageal Reflux: No Hx Ileostomy: No Hx Liver Failure: No Hx Pancreatitis: No HX Swallowing Problems: No - Genitourinary/Gynecological Hx Genitourinary Disorders: No Hx Hematuria: No Hx Incontinence: No Hx Prostate Problems: No Hx Sexually Transmitted Diseases: No Hx Urinary Tract Infection: No - Psychiatric Hx Psychophysiologic Disorder: No Hx Anxiety: No Hx Bipolar Disorder: No Hx Depression: No Hx Emotional Abuse: No Hx Hallucinations: No Hx Panic Disorder: No Hx Post Traumatic Stress Disorder: No Hx Psychosis: No Hx Physical Abuse: No Hx Schizophrenia: No Hx Sexual Abuse: No Hx Substance Use: No - Surgical History Hx Cardiac Catheterization: Yes Other/Comment: stents - Anesthesia Hx Anesthesia: Yes Hx Anesthesia Reactions: No Hx Malignant Hyperthermia: No - Suicidal Assessment Feels Threatened In Home Enviroment: No Family/Social History - Physician Review Nursing Documentation Reviewed: Yes Family/Social History: Unknown Family HX Smoking Status: Former Smoker Hx Alcohol Use: No Hx Substance Use: No Hx Substance Use Treatment: No Allergies/Home Meds Allergies/Adverse Reactions: Allergies levofloxacin Allergy (Verified 02/25/18 17:42) SHORTNESS OF BREATH Home Medications: Home Meds Medication Instructions Recorded Confirmed Sitagliptin Phos/Metformin HCl 1 each PO DAILY 09/16/17 02/25/18 [Janumet Xr 100-1,000 mg Tablet] metFORMIN ER [glucoPHAGE XR] 750 mg PO DAILY 09/16/17 02/25/18 Aspirin [Adult Low Dose Aspirin EC] 81 mg PO DAILY 09/22/17 02/25/18 Digoxin [Lanoxin] 250 mcg PO DAILY 09/22/17 02/25/18 Albuterol HFA [Ventolin HFA 90 1 puff IH DAILY 10/13/17 02/25/18 mcg/actuation (8 g)] Aspirin [Adult Low Dose Aspirin EC] 81 mg PO DAILY 02/25/18 02/25/18 Dabigatran [Pradaxa] 150 mg PO BID 02/25/18 02/25/18 Dexlansoprazole [Dexilant] 30 mg PO DAILY 02/25/18 02/25/18 Furosemide [Lasix] 40 mg PO DAILY 02/25/18 02/25/18 Multivit-Min/Iron/Folic Acid/K 1 each PO DAILY 02/25/18 02/25/18 [Adults Multivitamin Caplet] Pirfenidone [Esbriet] 267 mg PO TID 02/25/18 02/25/18 Pravastatin Sodium [Pravachol] 10 mg PO DAILY 02/25/18 02/25/18 Sulfamethoxazole/Trimethoprim 1 tab PO DAILY 02/25/18 02/25/18 [Sulfamethoxazole-Tmp Ss Tablet] Ubidecarenone [Ultra Coq10] 75 mg PO DAILY 02/25/18 02/25/18 predniSONE [Prednisone] 30 mg PO DAILY 02/25/18 02/25/18 Review of Systems - Review of Systems Constitutional: absent: Fevers Eyes: absent: Vision Changes Respiratory: SOB. absent: Cough Cardiovascular: Chest Pain Gastrointestinal: absent: Abdominal Pain, Diarrhea, Nausea, Vomiting Genitourinary Male: absent: Dysuria, Frequency Skin: absent: Rash Neurological: absent: Headache, Dizziness Endocrine: absent: Diaphoresis Physical Exam Vital Signs Reviewed: Yes Vital Signs Temp Pulse Resp BP Pulse Ox 02/25/18 10:17 136/85 02/25/18 09:50 19 97 02/25/18 09:45 98.1 F 117 H 19 153/78 H 98 02/25/18 09:43 98.5 F 117 H 20 153/79 H 98 Temperature: Afebrile Blood Pressure: Hypertensive Pulse: Tachycardic Respiratory Rate: Normal Appearance: Positive for: Well-Appearing, Non-Toxic, Comfortable Pain Distress: None Mental Status: Positive for: Alert and Oriented X 3 - Systems Exam Head: Present: Atraumatic, Normocephalic Pupils: Present: PERRL Extroacular Muscles: Present: EOMI Conjunctiva: Present: Normal Mouth: Present: Moist Mucous Membranes Respiratory/Chest: Present: Other ((+) lower lung crackles). No: Clear to Auscultation, Good Air Exchange, Respiratory Distress, Accessory Muscle Use Cardiovascular: Present: Regular Rate and Rhythm, Normal S1, S2. No: Murmurs Abdomen: Present: Normal Bowel Sounds. No: Tenderness, Distention, Peritoneal Signs, Rebound, Guarding Upper Extremity: Present: Normal Inspection, Normal ROM, NORMAL PULSES, Neurovascularly Intact, Capillary Refill < 2s. No: Cyanosis, Edema, Swelling, Erythema, Temperature Abnormalties, Deformity Lower Extremity: Present: Edema (trace edema), NORMAL PULSES, Neurovascularly Intact, Capillary Refill < 2 s. No: Normal Inspection, Cyanosis, Erythema, Deformity Neurological: Present: GCS=15, CN II-XII Intact, Speech Normal, Normal Sensory Function, Normal Cerebellar Funct Skin: Present: Warm, Dry, Normal Color. No: Rashes Psychiatric: Present: Alert, Oriented x 3, Normal Insight, Normal Concentration Medical Decision Making ED Course and Treatment: 02/25/18 Impression: 62 year old male with trace edema on lower extremities and lower lung crackles, complaining of shortness of breath that has become worse since 3 days. Differential Diagnosis included but are not limited to: CHF exacerbation Plan: -- EKG -- Chest X-ray -- Labs -- Lasix -- Reassess and disposition Progress Notes: EKG: Ordered, reviewed, and independently interpreted the EKG. Rate : 128 BPM Rhythm : Atrial fibrillation Interpretation : LBBB. No changes from previous EKG Comparison : 10/13/2017 02/25/18 13:[address] Milligan, who is aware of plan and agrees to admit patient under his service along with requesting Dr. Lang for cardiology. - Lab Interpretations Lab Results: 02/25/18 10:10 02/25/18 10:10 Lab Results 02/25/18 10:10: Sodium 139, Chloride 107, Potassium 4.2, Carbon Dioxide 21, Anion Gap 16, BUN 24 H, Creatinine 1.2, Est GFR ( Amer) > 60, Est GFR ( Non-Af Amer) > 60, Random Glucose 257 H, Calcium 9.0, Magnesium 2.0, Total Bilirubin 0.4, AST 30, ALT 56, Alkaline Phosphatase 82, Lactate Dehydrogenase 642, Total Creatine Kinase 23 L, Troponin I 0.10 D, NT-Pro-B Natriuret Pep 725 H, Total Protein 6.1, Albumin 3.4, Globulin 2.6, Albumin/Globulin Ratio 1.3 02/25/18 10:10: pO2 94 H, VBG pH 7.46 H, VBG pCO2 34.0 L, VBG HCO3 24.2, VBG Total CO2 25.2, VBG O2 Sat (Calc) 99.3 H, VBG Base Excess 0.8, VBG Potassium 4.5 , Sodium 137.0, Chloride 108.0 H, Glucose 291 H, Lactate 2.1, FiO2 21.0, Venous Blood Potassium 4.5 02/25/18 10:10: PT 13.0 H, INR 1.13 H, APTT 33.4 02/25/18 10:10: WBC 13.0 H D, RBC 4.63, Hgb 12.2 L D, Hct 37.4 L, MCV 80.8, MCH 26.3, MCHC 32.6, RDW 18.8 H, Plt Count 201, MPV 9.3, Gran % 80.0 H, Lymph % ( Auto) 15.0 L, Rusk % (Auto) 4.3, Eos % (Auto) 0.5 L, Baso % (Auto) 0.2, Gran # 10.37 H, Lymph # (Auto) 1.9, Rusk # (Auto) 0.6, Eos # (Auto) 0.1, Baso # (Auto) 0.02 I have reviewed the lab results: Yes - RAD Interpretation Radiology Orders: 02/25/18 09:50 CHEST PORTABLE [RAD] Stat Ux Manager: Radiologist - EKG Interpretation Interpreted by ED Physician: Yes Type: 12 lead EKG Comparison: Com.w/previous EKG (10/13/2017) - Medication Orders Current Medication Orders: Albuterol Sulfate (Albuterol 0.083% Inhal Leslie (2.5 Mg/3 Ml) Ud) 2.5 mg IH [id number] PRN PRN Reason: Wheezing Aspirin (Aspirin Chewable) 81 mg PO DAILY KAREN Digoxin (Lanoxin) 0.25 mg PO 1400 KAREN Furosemide (Lasix) 20 mg IVP DAILY KAREN Lisinopril (Zestril) 20 mg PO DAILY KAREN Metformin HCl (Glucophage Xr) 750 mg PO DAILY KAREN Sitagliptin Phosphate (Januvia) 100 mg PO DAILY KAREN Discontinued Medications Furosemide (Lasix) 40 mg IVP STAT STA Stop: 02/25/18 09:51 Last Admin: 02/25/18 10:17 Dose: 40 mg MAR Blood Pressure Document 02/25/18 10:17 [email or web address] (Rec: 02/25/18 10:17 [email or web address] [id number]) Blood Pressure Blood Pressure (100/60-150/90) 136/85 IVP Administration Document 02/25/18 10:17 [email or web address] (Rec: 02/25/18 10:17 [email or web address] [id number]) Charges for Administration # of IVP Administrations 1 Ceftriaxone Sodium (Rocephin 1 Gram Ivpb) 1 gm in 100 mls @ 200 mls/hr IVPB STAT STA PRN Reason: Protocol Stop: 02/25/18 10:57 Last Admin: 02/25/18 11:35 Dose: 200 mls/hr eMAR Start Stop Document 02/25/18 11:35 [email or web address] (Rec: 02/25/18 11:36 [email or web address] [id number]) Intravenous Solution Start Date 02/25/18 Start Time 11:36 End Date 02/25/18 Pneumococcal Polyvalent Vaccine (Pneumovax 23 Vaccine) 0.5 ml IM .ONCE ONE Stop: 02/25/18 17:59 - Scribe Statement The provider has reviewed the documentation as recorded by the Jami Shafer Provider Scribe Attestation: All medical record entries made by the Scribe were at my direction and personally dictated by me. I have reviewed the chart and agree that the record accurately reflects my personal performance of the history, physical exam, medical decision making, and the department course for this patient. I have also personally directed, reviewed, and agree with the discharge instructions and disposition. Disposition/Present on Arrival - Present on Arrival Any Indicators Present on Arrival: No History of DVT/PE: No History of Uncontrolled Diabetes: No Urinary Catheter: No History of Decub. Ulcer: No History Surgical Site Infection Following: None - Disposition Have Diagnosis and Disposition been Completed?: Yes Diagnosis: CHF (congestive heart failure) Disposition: HOSPITALIZED Disposition Time: 11:07 Patient Plan: Observation Condition: FAIR
[2018-02-25 10:16] LABS: VENOUS BLOOD GAS BASE EXCESS 0.8 mmol/L (0.0-2.0); VENOUS BLOOD GAS PO2 94 mm/Hg (30-55); VENOUS BLOOD PH 7.46 (7.32-7.43)
[2018-02-25 10:20] LABS: BASO # 0.02 K/mm3 (0.0-2.0); BASO % 0.2 % (0.0-3.0); EOS # 0.1 (0.0-0.7); EOS % 0.5 % (1.5-5.0); GRAN # 10.37 (1.4-6.5); HEMOGLOBIN 12.2 g/dL (14.0-18.0); LYMPH # 1.9 (1.2-3.4); MEAN CELL VOLUME 80.8 fl (80.0-105.0); MEAN CORPUSCULAR HEMOGLOBIN 26.3 pg (25.0-35.0); MEAN CORPUSCULAR HGB CONC 32.6 g/dl (31.0-37.0); MEAN PLATELET VOLUME 9.3 fl (7.0-11.0); MONO # 0.6 (0.1-0.6); MONO % 4.3 % (1.0-6.0); RBC 4.63 10^6/uL (3.5-6.1); RED CELL DISTRIBUTION WIDTH 18.8 % (11.5-14.5)
[2018-02-25 10:26] LABS: ALB/GLOB RATIO 1.3 (1.1-1.8); ALBUMIN 3.4 g/dL (3.0-4.8); ALT/SGPT 56 U/L (7-56); AST/SGOT 30 U/L (17-59); BLOOD UREA NITROGEN 24 mg/dL (7-21); GFR AFRICAN-AMERICAN > 60; GFR NON-AFRICAN AMERICAN > 60
[2018-02-25] MEDS ORDERED: cefTRIAXone 1 gm 1 GM/100 ML BAG IVPB STA (10:28)
[2018-02-25 10:35] LABS: INR 1.13 (0.93-1.08); PARTIAL THROMBOPLASTIN TIME 33.4 Seconds (25.1-36.5)
[2018-02-25 10:38] LABS: B-TYPE NATRIURETIC PEPTIDE 725 pg/mL (0-450)
--- NOTE | 2018-02-25 10:48 | RAD ---
HISTORY: chest pain and sob COMPARISON: 10/13/2017 FINDINGS: LUNGS: No active pulmonary disease. PLEURA: No significant pleural effusion identified, no pneumothorax apparent. CARDIOVASCULAR: Mild to moderate cardiomegaly. Mild vascular congestion OSSEOUS STRUCTURES: No significant abnormalities. VISUALIZED UPPER ABDOMEN: Normal. OTHER FINDINGS: None. IMPRESSION: Mild to moderate cardiomegaly with mild vascular congestion
[2018-02-25 14:34] LABS: VENOUS BLOOD GAS BASE EXCESS 4.1 mmol/L (0.0-2.0); VENOUS BLOOD GAS PO2 182 mm/Hg (30-55); VENOUS BLOOD PH 7.49 (7.32-7.43)
[2018-02-25] MEDS ORDERED: Albuterol 0.083% Inhal Sol (2.5 mg/3 mL) UD IH PRN (16:25)
[2018-02-25 17:58] VITALS: BMI 28.4
[2018-02-25] MEDS ORDERED: Pneumococcal 23-Valent Vaccine IM ONE (17:58)
--- NOTE | 2018-02-25 22:28 | CARD ---
APPROVED REPORT EKG Measurement Heart [id number] <Conclusion> Atrial fibrillation with rapid ventricular response Left bundle branch block Abnormal ECG
[2018-02-26 06:28] LABS: HEMOGLOBIN 12.1 g/dL (14.0-18.0); MEAN CELL VOLUME 80.7 fl (80.0-105.0); MEAN CORPUSCULAR HEMOGLOBIN 26.2 pg (25.0-35.0); MEAN CORPUSCULAR HGB CONC 32.4 g/dl (31.0-37.0); MEAN PLATELET VOLUME 9.4 fl (7.0-11.0); RBC 4.62 10^6/uL (3.5-6.1); RED CELL DISTRIBUTION WIDTH 18.6 % (11.5-14.5); WHITE BLOOD COUNT 10.7 10^3/ul (4.5-11.0)
[2018-02-26 06:36] LABS: IRON 57 ug/dL (45-180)
[2018-02-26 06:55] LABS: % IRON SATURATION 20 % (20-55); TOTAL IRON BINDING CAPACITY 285 ug/dL (261-462)
[2018-02-26 07:26] LABS: BLOOD UREA NITROGEN 24 mg/dL (7-21); CALCIUM 8.6 mg/dL (8.4-10.5); GFR AFRICAN-AMERICAN > 60; GFR NON-AFRICAN AMERICAN > 60; TROPONIN I 0.12 ng/mL
[2018-02-26] MEDS ORDERED: Levalbuterol 0.63 MG/3 ML Inhal Soln UD IH PRN (09:24)
[2018-02-26] MEDS ORDERED: Home Med 1 UNIT PO SCH (10:00)
[2018-02-26] MEDS ORDERED: ESBRIET PO SCH ×3 (10:00→14:00)
--- NOTE | 2018-02-26 10:51 | HP ---
The patient is a 62-year-old male. CHIEF COMPLAINT: Shortness of breath. HISTORY OF PRESENT ILLNESS: Mr. Hernandez Bobby is a 62-year-old male with past medical history of atrial fibrillation, congestive heart failure, VA, hypertension, COPD, diabetes mellitus and coronary artery disease, came to [facility] Emergency Room/Department complaining of shortness of breath that has become worse since 3 days. Patient reports also having midsternal pushing chest pain that is intermittent and lasted 2 seconds. He noticed starting a new medication, Esbriet, which he takes two tablets 3 times a day. Actually, he was just loading starting from one, now he is going to 3, was prescribed by Dr. Mehran Hickman, informatics spec. Patient denies any cough, fever, abdominal pain, chills, vomiting or diarrhea. No hematuria or hematochezia. PAST MEDICAL HISTORY: Atrial fibrillation, congestive heart failure, VA, hypertension, COPD. Has history of BPPV, history of cataract surgery, diabetes mellitus type 2. FAMILY HISTORY: Father and mother, noncontributory. HABITS: History of heavy smoking, former smoker. Alcohol: No. Substance abuse: No. ALLERGIES: PATIENT IS ALLERGIC WITH LEVOFLOXACIN, CAUSING SHORTNESS OF BREATH. HOME MEDICATIONS: Metformin, Januvia, aspirin, multivitamins, Esbriet, pravastatin, prednisone. REVIEW OF SYSTEMS: The patient was seen and examined on the bed side in the ER. Still having shortness of breath and sometimes chest pain, off and on. No abdominal pain. No nausea or vomiting. No headache. No dizziness. No diaphoresis. No fever. No chills. No hematuria. No hematochezia. PHYSICAL EXAMINATION: VITAL SIGNS: Temperature 98.5, pulse 117, respiratory rate 20, blood pressure 120/80 and pulse oximetry 98%. HEENT: Head, normocephalic and atraumatic. Eyes, PERRLA. Extraocular muscles intact. Conjunctivae clear. Nose patent. Mucous membrane moist. NECK: Supple. No carotid bruit. No JVD, or thyromegaly. CHEST: Bilaterally symmetrical. HEART: S1 and S2 positive. No murmur. LUNGS: Lower lung crackles. ABDOMEN: Soft. Bowel sounds present. No organomegaly. No distension. No peritoneal sign. No rebound. No guarding. EXTREMITIES: No edema. No cyanosis. NEUROLOGIC: Patient is awake, alert. Moving all four extremities. No focal deficits. LABORATORY DATA: White blood cell 13, hemoglobin 12.2, hematocrit 37.4, platelets 201. Sodium 139, potassium 4.2, BUN 24, creatinine 1.2 and glucose 257. ASSESSMENT AND PLAN: Mr. Hernandez Bobby is a 62-year-old male, well known to me, from [facility] on multiple hospitalizations, had leukocytosis, anemia; diabetes mellitus type 2, uncontrolled; came with shortness of breath, has exacerbation of congestive heart failure, history of chronic obstructive pulmonary disease, history of smoking. Discussions done with Dr. Ocampo, ER physician, even discussion done with Dr. Vo for patient's shortness of breath. Patient has history of myocardial infarction, hypertension, coronary stents, cataract surgery, started the patient on home medication and Lasix. Cardiology and Pulmonary consult called. Repeat labs. Gastrointestinal and deep venous thrombosis prophylaxis. We will follow up. Josie Ramos MD [facility]
[2018-02-26 13:42] LABS: FOLATE 4.7 ng/mL
[2018-02-26] MEDS ORDERED: Digoxin 250 mcg (0.25 mg) Tab PO SCH (14:00)
--- NOTE | 2018-02-27 03:45 | CON ---
DATE: CARDIOLOGY CONSULTATION REASON FOR CONSULTATION: Shortness of breath as well as chest discomfort. HISTORY OF PRESENT ILLNESS: The patient is a 62-year-old male who has history of chronic atrial fibrillation, history of coronary artery disease, status post coronary stenting in the past, history of systolic heart failure. The most recent cardiac catheterization performed by Dr. Holden Lang in September of last year revealed patent coronary artery stents with residual 50% stenosis in the midportion of the LAD, which was unchanged from prior study. The patient's ejection fraction was estimated during this cardiac cath in the range of 45% to 50% and patient was started on Pradaxa at that time. The patient was placed by his primary physician on unknown medication that patient had short of breath. The patient did also report mild leg swelling, which has improved. The patient, at this time, denies any retrosternal chest pain. SOCIAL HISTORY: Patient is a former smoker who quit many years ago. MEDICATIONS: Home medications include metformin, Lasix, Zestril, aspirin, digoxin, albuterol, prednisone, Bactrim, Pravachol, multivitamins, iron pills, Pradaxa. Current hospital medications are aspirin 81 mg once a day, Glucophage 750 mg daily, Januvia 100 mg once a day, Lanoxin 0.25 mg once a day, Lasix 20 mg intravenously twice a day, Pepcid 40 mg a day, Pradaxa 150 mg twice a day, prednisone 30 mg once a day, Zestril 20 mg once a day and Xopenex inhaler every 6 hours p.r.n. REVIEW OF SYSTEMS: No fever or chills. No vomiting or diarrhea. No dizziness or syncope. PHYSICAL EXAMINATION: GENERAL: The patient is a middle-aged male who does not appear to be in any acute distress. VITAL SIGNS: Blood pressure 155/75, heart rate 69, temperature 98.3 and respiration 18. HEENT: Normocephalic. NECK: No JVD. CHEST: Minimal basilar rhonchi. HEART: S1 and S2 regular. ABDOMEN: Soft. EXTREMITIES: Trace leg edema. LABORATORY DATA: Today's hemoglobin and hematocrit 12.1 and 37.3, White count and platelet count are within normal limits. Today's SMA-7: Sodium 142, potassium 3.8, chloride 103, CO2 of 80, glucose 144, BUN 24, creatinine 1.2. Two sets of troponins are 0.12. EKG with atrial fibrillation with rapid ventricular response at a rate of 128, left bundle branch block. Chest x-ray revealed cardiomegaly with [id number] CHF. ASSESSMENT: 1. Exacerbation of congestive heart failure. 2. Chronic atrial fibrillation. 3. Coronary artery disease with patent coronary artery stents and recent catheterization in September of last year. 4. Chronic obstructive lung disease. RECOMMENDATIONS: Continue current aspirin 81 mg once a day, metformin 750 mg once a day, Januvia 100 mg once a day, digoxin 0.25 mg once a day, Lasix 20 mg intravenously twice a day, Lopressor 25 mg once a day, Pradaxa 150 mg twice a day, Zestril 20 mg once a day. Consider initiating Aldactone at 12.5 mg orally daily. Kiet Daniel MD
--- NOTE | 2018-02-27 03:53 | PN ---
DATE: 02/26/2018 SUBJECTIVE: Patient is seen and examined at the bedside, looking comfortable. No nausea, vomiting, or diarrhea. No hematuria or hematochezia. No swelling of the legs. No chest pain. No palpitation. Shortness of breath is getting better and as per patient, last night, he has episode again of shortness of breath. PHYSICAL EXAMINATION: VITAL SIGNS: Temperature 99, pulse 59, blood pressure 115/50, respiratory rate 18. HEENT: Head, normocephalic and atraumatic. Eyes, PERRLA. Extraocular muscles intact. Conjunctivae are clear. Nose patent. Mucous membranes moist. NECK: Supple. No carotid bruit, JVD, or thyromegaly. CHEST: Bilaterally symmetrical. HEART: S1 and S2 positive. LUNGS: Clear to auscultation. ABDOMEN: Soft. Bowel sounds present. No organomegaly. EXTREMITIES: No edema. No cyanosis. NEUROLOGIC: Patient is awake and alert. Moving all 4 extremities. No focal deficit. MEDICATIONS: Aspirin, metformin, Januvia, digoxin, Lasix, Lopressor, Esbriet, Pradaxa, prednisone, Xopenex, Zestril. LABORATORY DATA: White blood cell 10.7, hemoglobin 12.1, hematocrit 37.3, platelets 196. Glucose 228, 158. Hemoglobin A1c 9.5. ASSESSMENT AND PLAN: Mr. Hernandez Bobby is a 62-year-old male with a history of leukocytosis, anemia, hyperglycemia, uncontrolled diabetes mellitus type 2, hemoglobin A1c 9.5, came with shortness of breath and chest pain. Cardiology consult called with Dr. Holden Lang yesterday. Waiting for his input. We will continue aspirin, metformin, Januvia. We will do digoxin level. Continue Lasix. Getting metoprolol. patient's Pad Tufter, Dr. Mehran Hickman. Continue Pradaxa. Gastrointestinal and deep vein thrombosis prophylaxis. Today, when patient was walking around, his heart rate increased to 150. Metoprolol given. Repeat labs. Has exacerbation of congestive heart failure. We will follow. Josie Ramos MD [facility] # [id number] MTDD
--- NOTE | 2018-02-27 04:11 | CON ---
DATE: 02/26/2018 PULMONARY CONSULTATION REFERRING PHYSICIAN: Josie Ramos MD REASON FOR CONSULTATION: Chronic lung disease, has a history of sleep apnea syndrome, cardiomyopathy, coronary artery disease. HISTORY OF PRESENT ILLNESS: This is a 62-year-old gentleman with a past medical history significant for coronary artery disease, history of coronary stent, cardiomyopathy, decreased LV function, also history of chronic obstructive lung disease, obstructive sleep apnea syndrome, admitted because of shortness of breath, was in heart failure, treated with and afterload head of geography, feels better. As outpatient, he is being followed by Dr. Mehran Hickman and has been on Esbriet, who titrated the doses. Presently feels better after diuretics and bronchodilator, also history of sleep apnea syndrome and noncompliant with CPAP, stopped using a few years ago. PAST MEDICAL HISTORY: As per history present illness and also with diabetes, cataract surgery done in the past, atrial fibrillation. ALLERGIES: TO LEVAQUIN. SOCIAL HISTORY: Stopped smoking many years ago. Denied any alcohol use. FAMILY HISTORY: No significant cardiopulmonary disease reported. MEDICATIONS: He is on aspirin 81 mg daily, Glucophage XR 50 mg daily, Januvia 100 mg daily, digoxin 0.25 mg daily, Lasix 20 mg IV twice a day, metoprolol tartrate 25 mg twice a day, Pepcid 40 mg daily, Pradaxa 150 mg twice a day, prednisone 30 mg daily, Xopenex 0.63 inhaled every 6 hour, Zestril 20 mg daily. Home medication is Esbriet. REVIEW OF SYSTEMS: No headache, no rhinitis. Gets short of breath, has orthopnea, polyuria. No chest pain. No nausea, no vomiting, no diarrhea. Leg swelling is better since admitted to the hospital and get diuretics. PHYSICAL EXAMINATION: GENERAL: Lying in the bed, in no acute distress. VITAL SIGNS: Temperature is 99, heart rate 84, respiratory rate 18, blood pressure 115/60, pulse ox 97% on room air. HEENT: Moist mucous membranes. Small oral cavity. Crowded airway. NECK: Supple. No JVD. LUNGS: Have a few scattered rhonchi. HEART: S1 and S2. ABDOMEN: Soft, nontender, no organomegaly. EXTREMITIES: No edema. NEUROLOGIC: Awake, alert, and follows simple commands. LABORATORY DATA: Shows hemoglobin 12.1, hematocrit 37.3, WBC 10.7, platelet is 196. INR 1.13, PTT 33. VBG done, pH 7.49, pCO2 of 36, O2 of 182. Iron 57, TIBC 285. Troponin is 0.12. TSH is 1.27. Sodium 142, potassium 3.8, chloride 103, bicarbonate 30, BUN 24, creatinine 1.2, glucose is 144, hemoglobin A1c 9.5. LDH is 637. Troponin is 0.12. Vitamin B12 of 1000. Folate is 47. TSH 1.27. Microbiology: Blood culture has been negative. Chest x-ray done on admission shows [id number] cardiomegaly with mild vascular congestion. IMPRESSION AND PLAN: Chronic obstructive lung disease, diagnosed obstructive sleep apnea in the past, refused to use CPAP/BiPAP, has cardiomyopathy, decreased ejection fraction, multivessel coronary artery disease requiring stent, also with diabetes, hypertension, atrial fibrillation history . Patient has been prescribed with Esbriet. I see no indication to use it for now. I will hold it. We will get CT of the chest without contrast to evaluate lung parenchyma. I believe his major issue is cardiomyopathy and heart failure. Of course, chronic obstructive pulmonary disease component is there. He should have a pulmonary function test upon discharge as outpatient. Also, he should restart CPAP/BiPAP while sleeping. Gastric prophylaxis, deep venous thrombosis prophylaxis. Thank you and we will follow with you. Minh Vo MD
[2018-02-27 07:14] LABS: URINE BILIRUBIN NEGATIVE (NEGATIVE); URINE BLOOD NEGATIVE (NEGATIVE); URINE GLUCOSE (UA) NEGATIVE (NEGATIVE); URINE LEUKOCYTE ESTERASE NEGATIVE Leu/uL (NEGATIVE); URINE PROTEIN NEGATIVE mg/dL (<30 mg/dL); URINE UROBILINOGEN 0.2 E.U./dL (<1 E.U./dL)
[2018-02-27 07:23] LABS: URINE APPEARANCE CLEAR (CLEAR); URINE COLOR YELLOW (YELLOW)
[2018-02-27 07:43] LABS: B-TYPE NATRIURETIC PEPTIDE 724 pg/mL (0-450)
[2018-02-27 07:45] LABS: BLOOD UREA NITROGEN 33 mg/dL (7-21); CALCIUM 9.1 mg/dL (8.4-10.5); GFR AFRICAN-AMERICAN > 60; GFR NON-AFRICAN AMERICAN 56
[2018-02-27 08:00] LABS: HEMOGLOBIN 11.7 g/dL (14.0-18.0); MEAN CELL VOLUME 80.9 fl (80.0-105.0); MEAN CORPUSCULAR HEMOGLOBIN 25.7 pg (25.0-35.0); MEAN CORPUSCULAR HGB CONC 31.8 g/dl (31.0-37.0); MEAN PLATELET VOLUME 9.9 fl (7.0-11.0); RBC 4.55 10^6/uL (3.5-6.1); RED CELL DISTRIBUTION WIDTH 18.5 % (11.5-14.5)
[2018-02-27] MEDS ORDERED: ESBRIET PO SCH (10:00)
[2018-02-27] MEDS ORDERED: PIRFENIDONE 267 MG PO SCH (10:00)
--- NOTE | 2018-02-27 10:21 | CARD ---
APPROVED REPORT EXAM: Two-dimensional and M-mode echocardiogram with Doppler and color Doppler. INDICATION 2D DIMENSIONS IVSd1.6 (0.7-1.1cm)LVDd5.6 (3.9-5.9cm) PWd1.3 (0.7-1.1cm)LVDs5.2 (2.5-4.0cm) FS (%) 8.0 %LVEF (%)17.5 (>50%) M-Mode DIMENSIONS Left Atrium (MM)3.20 (2.5-4.0cm)Aortic Root4.60 (2.2-3.7cm) Aortic Cusp Exc.2.30 (1.5-2.0cm) Aortic Valve AoV Peak Bqgnhqrd553.0cm/Balta Peak GR.6mmHgAI P 1/2 [id number] Mitral Valve MV E Xdskavnk82.9cm/sMV E Peak Gr.111mmHg TDI Lateral E' Peak V11.50cm/sMedial E' Peak V5.55cm/sE/Lateral E'8.4 E/Medial E'17.5 Tricuspid Valve TR Peak [id number]/sRAP [id number] Peak Gr.54mmHg [id number] LEFT VENTRICLE The Left Ventricle is borderline dilated. There is mild concentric left ventricular hypertrophy. The systolic function is severely impaired. Akinetic Septum No left ventricle thrombus noted on this study. RIGHT VENTRICLE The right ventricle is normal size. There is normal right ventricular wall thickness. The right ventricular systolic function is normal. ATRIA The left atrium size is normal. The right atrium size is normal. AORTIC VALVE The aortic valve is not well visualized. There is mild to moderate aortic regurgitation. There is no aortic valvular stenosis. MITRAL VALVE The mitral valve is mildly thickened. Mitral regurgitation is moderate. TRICUSPID VALVE There is moderate tricuspid regurgitation. There is moderate to severe pulmonary hypertension. GREAT VESSELS The aortic root is normal in size. The IVC is dilated. <Conclusion> The Left Ventricle is borderline dilated. There is mild concentric left ventricular hypertrophy. The systolic function is severely impaired. Akinetic Septum No left ventricle thrombus noted on this study. There is mild to moderate aortic regurgitation. Mitral regurgitation is moderate. There is moderate tricuspid regurgitation. There is moderate to severe pulmonary hypertension.
[2018-02-27] MEDS ORDERED: Iohexol 350 MG/100 ML VIAL ONE (13:54)
--- NOTE | 2018-02-27 14:01 | PN ---
DATE: 02/27/2018 SUBJECTIVE: The patient is still experiencing orthopnea. He denies any chest pain. OBJECTIVE: VITAL SIGNS: Blood pressure 121/73, heart rate 51, temperature 97.8, respirations 18. HEENT: Normocephalic. CHEST: Bilateral rhonchi. HEART: S1 and S2, irregular. ABDOMEN: Soft. EXTREMITIES: No edema. LABORATORY DATA: Today's hemoglobin and hematocrit are 11.7 and 36.8. White count and platelet count are within normal limits. SMA-7 is within normal limits except for glucose of 123 and BUN of 33. ProBNP is 724. Digoxin level was 1.5. Echocardiography study revealed severely depressed ejection fraction with akinetic apex and mcvjkzdi-jz-asffju pulmonary hypertension. ASSESSMENT: 1. Severe cardiomyopathy. 2. Chronic atrial fibrillation. 3. Slow atrial fibrillation with 2-second pauses. RECOMMENDATIONS: Discontinue digoxin, hold Lopressor for heart rate below 70. Continue on Pradaxa 150 mg twice a day, Lasix 20 mg intravenous twice a day, aspirin 81 mg once a day, Zestril 20 mg once a day. Consider EP evaluation and future ICD placement, possibly LifeVest for now. Kiet Daniel MD
--- NOTE | 2018-02-27 14:37 | CT ---
PROCEDURE: CT Chest with contrast (Pulmonary Angiogram) HISTORY: r/o PE, Thoracic aneurysm COMPARISON: None available. TECHNIQUE: Axial computed tomography images were obtained of the chest in the pulmonary arterial phase of enhancement. Coronal and sagittal reformatted images were created and reviewed. Intravenous contrast dose: 100 cc of Omni 350 Radiation dose: Total exam DLP = 490 mGy-cm. This CT exam was performed using one or more of the following dose reduction techniques: Automated exposure control, adjustment of the mA and/or kV according to patient size, and/or use of iterative reconstruction technique. FINDINGS: PULMONARY ARTERIES: Minimal ground-glass densities are seen in both lungs. There is no focal consolidation AORTA: No acute findings. No thoracic aortic aneurysm. LUNGS: Unremarkable. No nodule, mass or pulmonary consolidation. PLEURAL SPACES: Unremarkable. No effusion or pneuomothorax. HEART: Moderate cardiomegaly. Coronary artery calcification LYMPH NODES: No lymphadenopathy. BONES, CHEST WALL: Unremarkable. No fracture or destructive lesion OTHER FINDINGS: Unremarkable. IMPRESSION: Unremarkable CT pulmonary angiogram. No pulmonary embolus.
--- NOTE | 2018-02-27 20:54 | PN ---
DATE: 02/27/2018 PULMONARY PROGRESS NOTE REFERRING PHYSICIAN: Josie Ramos MD. SUBJECTIVE: He is sitting at the side of the bed; patient's daughter, who is a physician, is at bedside. Feels better. No headache, no rhinitis. No nausea, no vomiting, no diarrhea. No leg pain or leg swelling. OBJECTIVE: GENERAL: In no acute distress. VITAL SIGNS: Temperature is 98, heart rate is 55, respiratory rate is 18, blood pressure 97/56, pulse ox 96% on room air. HEENT: Moist mucous membrane, edentulous, small oral cavity. Crowded airway. LUNGS: Have a fair airflow with rhonchi. HEART: S1, S2. ABDOMEN: Soft, nontender. No organomegaly. EXTREMITIES: No edema. NEUROLOGIC: Awake, alert, and follows simple command. MEDICATIONS: He is on aspirin 81 mg daily, metformin 750 mg daily, Januvia 100 mg daily, Lasix 20 mg twice a day, metoprolol tartrate 25 mg twice a day, , which we now placed on hold, Pradaxa 150 mg twice a day, prednisone 30 mg daily, Xopenex inhaled every 6 hours, Zestril 20 mg daily. LABORATORY DATA: Shows hemoglobin 11.7, hematocrit 36.8, platelet is 211. Sodium 142, potassium 4.2, chloride 107, bicarbonate 26, BUN 33, creatinine 1.3, glucose 123, calcium 9.1. ProBNP 724. Microbiology: Blood culture has been negative. CT of the chest was done, which shows no pulmonary embolism, no infiltrate, no sign of pulmonary fibrosis reported. Had echocardiogram done which shows right ventricular systolic pressure is 64, mild concentric left ventricular hypertrophy, systolic function is severely impaired, has akinetic septum, moderate tricuspid regurg, fceuwmig-rs-yafthr pulmonary hypertension. IMPRESSION AND PLAN: Chronic obstructive lung disease, obstructive sleep apnea syndrome, cardiomyopathy with pulmonary hypertension, severely decreased left ventricular function, history of multivessel coronary artery disease, coronary stent, diabetes, history of atrial fibrillation. He being treated for pulmonary fibrosis, but on CT, I do not see any fibrosis. I had a long discussion with the patient's daughter at bedside. All the questions answered. She also showed me his home sleep study done at his primary [facility] [employer], which showed severe sleep apnea syndrome with severe nocturnal desaturation. I recommended to the patient and the daughter that patient should have outpatient separate study with CPAP. Will benefit from CPAP use. Pulmonary point of view, I have also seen previous pulmonary function test, which patient's daughter has. It shows mild chronic obstructive pulmonary disease. So clinically, I suspect this is severe sleep apnea with coronary artery disease with severely decompensated left ventricular function. So, patient should have further followup by Cardiology. Pulmonary point of view, continue bronchodilator and sleep study as soon as possible and start on CPAP. Patient and patient's daughter expressed understanding. Thank you and we will follow with you. Minh Vo MD
--- NOTE | 2018-02-28 03:51 | PN ---
DATE: 02/27/2018 SUBJECTIVE: Patient is seen and examined at bedside, looking comfortable. According to him, his shortness of breath is better. No chest pain. No nausea, vomiting or diarrhea. No hematuria, no hematochezia. No swelling of the legs. No chest pain or palpitation. No headache, no dizziness. Patient's daughter is sitting on the bedside. Length of time discussion done. All questions were answered. PHYSICAL EXAMINATION VITAL SIGNS: Temperature 98, heart rate 55, respiratory rate 18, blood pressure 97/56, pulse oximetry 93% on room air. HEENT: Head normocephalic, atraumatic. Eyes, PERRLA. Extraocular muscles intact. Conjunctivae clear. Nose patent. NECK: Supple, no carotid bruit. No JVD or thyromegaly. CHEST: Bilaterally symmetrical. HEART: S1, S2 positive. LUNGS: Clear to auscultation. ABDOMEN: Soft, nontender. No organomegaly. EXTREMITIES: No edema, no cyanosis. NEUROLOGICAL: Patient is awake and alert. Follows simple commands. MEDICATIONS: Aspirin, metformin, Januvia, Lasix, metoprolol, Pradaxa, prednisone, Xopenex, Zestril. LABORATORY DATA: Hemoglobin 11.7, hematocrit 36.8, platelets 211. Sodium 142, potassium 4.2, BUN 33, creatinine 1.3, glucose 123. Blood cultures are negative. CT of the chest done, which shows no pulmonary emboli. No infiltrates. No sign of pulmonary fibrosis reported. Echocardiography done showed ventricular systolic pressure is 64, mild concentric ventricular hypertrophy, systolic function is severely impaired, has akinetic septum, moderate tricuspid regurgitation. ASSESSMENT AND PLAN: Mr. Hernandez Bobby is a 62-year-old male with uncontrolled diabetes mellitus, hemoglobin A1c is high, chronic obstructive lung disease, sleep apnea syndrome, cardiomyopathy with pulmonary hypertension, severely decreased left ventricular function, has multivessel coronary artery disease, coronary artery stent, history of atrial fibrillation. Appreciate Dr. Vo's input. Discussion done with patient's daughter. All questions were answered. Patient has severe sleep apnea syndrome with severe nocturnal desaturation. According to Dr. Vo, patient needs continuous positive airway pressure use, but PFTs done long time ago shows chronic obstructive pulmonary disease. Continue bronchodilators. Review Dr. Vo's notes. Review Dr. Daniel's notes also. Dr. Daniel is covering Dr. Holden Lang. According to Dr. Daniel, patient has severe cardiomyopathy, slow atrial fibrillation with 2-second pause. Dr. Daniel discontinued the digoxin, hold Lopressor for heart rate below 70. Continue Pradaxa, Lasix, aspirin, Zestril. According to Dr. Daniel, patient needs EP evaluation and for further future ICD placement, possibly LifeVest for now. We will continue the present treatment. We will discuss with Dr. Hart. We will follow up. Josie Ramos MD
--- NOTE | 2018-02-28 14:50 | PN ---
DATE: 02/28/2018 LOCATION: The patient is in room 271, bed 1. This progress note is being written on behalf of Dr. Lang whom I am covering. SUBJECTIVE: Patient states that in the night, he had an episode of shortness of breath. Denied chest pain or palpitations or dizziness. PHYSICAL EXAMINATION VITAL SIGNS: Blood pressure 120/72, respirations 19, pulse 88, temperature 98.5. HEENT: Head is normocephalic. Eyes: Pupils normal. Conjunctivae slightly pale. NECK: JVP is low. Carotid equal. THORAX: AP diameter normal. LUNGS: Clear. CARDIOVASCULAR: S1, S2. Irregular rhythm due to atrial fibrillation. ABDOMEN: Soft. No tenderness. No organomegaly. Bowel sounds normal. EXTREMITIES: No clubbing, no cyanosis. LABORATORY DATA: WBC 10, hemoglobin 11.7, hematocrit 36.8, platelets 211. Random sugar 131. Sodium 143, potassium 4.2, BUN 33, creatinine 1.3. Sugar 123. [id number] natriuretic peptide 724. Chest CT angiogram, no significant abnormality is seen. DIAGNOSES: Severe cardiomyopathy, chronic atrial fibrillation. The patient had an episode of 2-seconds pause about 36 hours ago and yesterday, the patient also had an episode of rapid atrial fibrillation episode. PLAN: The patient is on aspirin 81 mg daily, metformin 750 p.o. daily, Januvia 100 mg p.o. daily, furosemide 20 mg IV b.i.d., metoprolol 25 b.i.d., Pradaxa 150 b.i.d., prednisone 30 daily, lisinopril 20 daily. Digoxin is put on hold by Dr. Daniel because of 2-seconds pause about 36 hours ago. The patient's digoxin level was therapeutic 1.5. Dr. Lang will follow the patient starting tomorrow. Minh Mccauley MD
--- NOTE | 2018-02-28 20:44 | PN ---
DATE: 02/28/2018 PULMONARY PROGRESS NOTE REFERRING PHYSICIAN: Josie Ramos MD SUBJECTIVE: Sitting side of the bed. Daughter who is a physician, sitting at the side of the bed. No headache, no rhinitis. No nausea, no vomiting, no diarrhea. No leg pain or leg swelling. Gets short of breath, minimal exertion. Has a history of syncopal episode in the past. OBJECTIVE: GENERAL: In no acute distress. VITAL SIGNS: Temperature is 98, heart rate 69, respiratory rate is 18, blood pressure 100/64, pulse ox is 98% on room air. HEENT: Moist mucous membrane. Crowded airway. Mallampati score is 4. NECK: Supple. No JVD. LUNGS: Fair airflow with rhonchi. HEART: S1 and S2. ABDOMEN: Soft, nontender. No organomegaly. EXTREMITIES: There is no edema. NEUROLOGIC: Awake and alert, follows simple command. MEDICATIONS: He is on aspirin 81 mg daily, metformin 750 mg daily, Januvia 100 mg daily, Lasix 20 mg twice a day, metoprolol tartrate 25 mg twice a day, Pradaxa 150 mg twice a day, prednisone 30 mg daily, Xopenex inhale every 6 hours p.r.n., Zestril 20 mg daily. LABORATORY DATA: Shows hemoglobin 11.6, hematocrit 36.8. Blood sugar 186. Microbiology: Blood culture, there is no growth. Cardiomyopathy with pulmonary hypertension, cardiac arrhythmia, history of atrial fibrillation with pauses, mild obstructive lung disease, severe sleep apnea syndrome, hypertension, history of coronary artery disease, history of coronary stent. Spoke to the patient and the patient's daughter at bedside. All the questions answered. The shortness of breath cannot be explained on the basis of pulmonary function test. This is very mild disease. I believe his short of breath probably coming from history of cardiomyopathy with pulmonary hypertension. We will speak to Cardiology. I will place him on CPAP 8 cm with 30% oxygen while sleeping. He has a known history of sleep apnea syndrome which is severe, but the patient has been noncompliant. After long discussion of sleep apnea's relation to cardiomyopathy, pulmonary hypertension, patient and patient's daughter expressed understanding, and we will try to use CPAP tonight. Thank you and we will follow with you. Minh Vo MD [facility] # [id number]
--- NOTE | 2018-03-01 02:24 | PN ---
DATE: 02/27/2018 SUBJECTIVE: Patient is seen and examined at bedside, looking comfortable. No nausea, vomiting or diarrhea. According to the patient, last night was very disturbing. He could not sleep. Then, in middle of the night, he requested oxygen. After oxygen, he slept little bit. No fever. No chills. No hematuria, no hematochezia. PHYSICAL EXAMINATION VITAL SIGNS: Temperature 98.1, heart rate 59, respiratory rate 18, blood pressure 110/64, pulse oximetry 98% on room air. HEENT: Head normocephalic, atraumatic. Eyes, PERRLA. Extraocular muscles intact. Conjunctivae clear. Nose patent. Mucous membrane moist. NECK: Supple, no carotid bruit. No JVD or thyromegaly. CHEST: Bilaterally symmetrical. HEART: S1, S2 positive. LUNGS: Clear to auscultation. ABDOMEN: Soft, nontender. No organomegaly. EXTREMITIES: No edema, no cyanosis. NEUROLOGICAL: Patient is awake and alert. Follows simple commands. MEDICATIONS: Aspirin, metformin, Januvia, Lasix, metoprolol, Pradaxa, prednisone, Xopenex, Zestril. LABORATORY DATA: Hemoglobin 11.6, hematocrit 36.8. Blood cultures, no growth. Actually, we do not have labs today, but I reviewed old labs. Blood sugar is 186, 131, 99, 194, 239, 202. ASSESSMENT AND PLAN: Mr. Hernandez Bobby is a 62-year-old male, who has cardiomyopathy, pulmonary hypertension, cardiac arrhythmia with history of atrial fibrillation with pauses, mild obstructive lung disease, sleep apnea syndrome, heart rate ranges from 40s to 120s, hypertension and history of coronary artery disease and history of coronary stents. Length of time discussion done with patient, shipping technician and the patient's nurse. According to the dr vo shortness of breath cannot be explained on the basis of his pulmonary function tests. According to him, lung disease is mild even though, the patient has history of smoking and according to him, that may be is coming from cardiomyopathy with pulmonary hypertension. This is Dr. Holden Lang's private patient. He is on vacation. I am waiting for his comeback. Reviewed by Dr. Mccauley and Dr. Daniel who was covering the patient. Dr. Vo put the patient on CPAP at 8 cm with 30% oxygen while sleeping. The patient says he has known history of sleep apnea syndrome which is severe. The patient was noncompliant with CPAP. After long discussion on sleep apnea related cardiomyopathy and pulmonary hypertension, the patient and his daughter expressed understanding and try the use of CPAP this night. The patient has history of diabetes mellitus that is uncontrolled because of the steroids. Gastrointestinal and deep venous thrombosis prophylaxis. Repeat labs. We will follow up. Josie Ramos MD [facility]
[2018-03-01 06:56] LABS: HEMOGLOBIN 12.6 g/dL (14.0-18.0); MEAN CELL VOLUME 80.7 fl (80.0-105.0); MEAN CORPUSCULAR HEMOGLOBIN 25.9 pg (25.0-35.0); MEAN CORPUSCULAR HGB CONC 32.1 g/dl (31.0-37.0); MEAN PLATELET VOLUME 9.7 fl (7.0-11.0); RBC 4.86 10^6/uL (3.5-6.1); RED CELL DISTRIBUTION WIDTH 18.5 % (11.5-14.5); WHITE BLOOD COUNT 10.3 10^3/ul (4.5-11.0)
[2018-03-01 07:23] LABS: BLOOD UREA NITROGEN 33 mg/dL (7-21); CALCIUM 9.2 mg/dL (8.4-10.5); GFR AFRICAN-AMERICAN > 60; GFR NON-AFRICAN AMERICAN > 60
[2018-03-01] MEDS ORDERED: Primacor 1 mg/ml Inj (10 ml) IVP ONE (11:03)
[2018-03-01] MEDS: Milrinone 20mg/100ml D5W 100 ML IV PRN ×2 (11:35→21:37)
--- NOTE | 2018-03-01 13:42 | PN ---
DATE: 03/01/2018 CARDIOLOGY FOLLOWUP SUBJECTIVE: The patient continues to present with progressive shortness of breath. PHYSICAL EXAMINATION: VITAL SIGNS: Blood pressure 122/72, heart rate in atrial fibrillation that varies from the 90s to the 120s. NECK: Negative JVD. LUNGS: No rales noted today. HEART: Reveals S1, S2. EXTREMITIES: Without edema. LABORATORY DATA: The hemoglobin is 12.6. BUN and creatinine 33 and 1.2. Glucose of 114. Echocardiogram reveals depressed ejection fraction of 17% with significant pulmonary hypertension. IMPRESSION: 1. Dyspnea secondary to low left ventricular function as well as pulmonary hypertension. 2. Multivessel coronary artery disease. 3. Diabetes mellitus. 4. Hypercholesterolemia. Given these findings, we will give him a trial of IV Primacor. In addition, we will repeat LV evaluation with a MUGA scan. From his other studies, his ejection fraction is never that low. However, if it is this low, we will consider a defibrillator and a possible pacemaker with pacemaker function. Holden Lang MD
[2018-03-01] MEDS ORDERED: PIRFENIDONE 267 MG PO SCH (14:00)
--- NOTE | 2018-03-01 21:57 | CARD ---
APPROVED REPORT INDICATION Congestive Heart Failure PROCEDURE The above named patient recieved 24.4 millicuries of Tc99m tagged red blood cells intravenously. After achieving equilibrium, gated imaging of 16/frame/cycle was performed utillizing Gamma camera interfaced with a digital computer and gated device. Gated imaging was then performed in the left anterior oblique, anterior, and the left lateral projections. Findings Left Ventricle: The quality of the study is good. The left ventricle is moderately dilatedenlarged with thickened myocardium. The right ventricle is normal in size. Wall motion study shows moderate diffuse hypokinesis and paradoxical septal wall motion of the left ventricle. RV wall motion is normal. The right atrium is dynamic. The remainder of the study is unremarkable. Impressions Moderate LV dysfunction with diffuse hypokinesis and paradoxical septal wall motion of left ventricle wall. LVEF = 34%. Normal RV wall motion.
--- NOTE | 2018-03-02 00:05 | PN ---
DATE: 03/01/2018 REFERRING PHYSICIAN: Josie Ramos MD SUBJECTIVE: He is lying in the stretcher, going for nuclear study. Night was unremarkable. No headache, no rhinitis. Tolerated CPAP well. No nausea, vomiting, or diarrhea. No leg pain or leg swelling. OBJECTIVE: GENERAL: In no acute distress. VITAL SIGNS: Temperature is 98, heart rate is , respiratory rate is 20, blood pressure 110/82, pulse ox 100% on nasal cannula. HEENT: Moist mucous membranes. Crowded airway. Mallampati score is 4. NECK: Supple. No JVD. LUNGS: A fair airflow with few rhonchi. HEART: S1 and S2. ABDOMEN: Soft, nontender. No organomegaly. EXTREMITIES: There is no edema. NEUROLOGIC: Awake and alert, follows simple command. MEDICATIONS: He is on aspirin 81 mg daily, metformin 750 mg daily, Januvia 100 mg daily, Lasix 20 mg IV twice a day, metoprolol tartrate 25 mg twice a day, Pradaxa 150 mg twice a day, prednisone 30 mg daily, Primacor IV started today, Xopenex inhale every 6 hours, Zestril 20 mg daily. LABORATORY DATA: Shows hemoglobin 12.6, hematocrit 39.2, WBC 10.3, platelets 235. Sodium 144, potassium 4.3, chloride 107, bicarbonate 27. BUN 33, creatinine 1.2. Glucose 114. Calcium 9.2. Microbiology: Blood culture, there is no growth. IMPRESSION AND PLAN: Pulmonary hypertension, cardiomyopathy, multivessel coronary artery disease with coronary stent, severe sleep apnea syndrome, noncompliant with continuous positive airway pressure, mild chronic obstructive pulmonary disease, atrial fibrillation. Dr. Lang note reviewed. Agree with the plan. We will decrease prednisone 50 mg and taper off. Continue inhaled bronchodilator. MUGA scan report is pending. May need AICD if severe cardiomyopathy. Gastric prophylaxis. Fall precaution. Encourage BiPAP while sleeping and we will follow with you. Minh oV MD
[2018-03-02] MEDS: Milrinone 20mg/100ml D5W 100 ML IV PRN ×2 (06:20→17:03)
--- NOTE | 2018-03-02 09:08 | PN ---
DATE: 03/01/2018 SUBJECTIVE: Patient is a 62-year-old male. Patient was seen and examined at the bedside, was ready to go for MUGA scan. Still having shortness of breath. No nausea, vomiting, or diarrhea. No hematuria or hematochezia. No swelling of the legs. No chest pain. No palpitation. No fever, no chills. PHYSICAL EXAMINATION: VITAL SIGNS: Temperature 97.6, pulse 82, blood pressure 105/67, respiratory rate 18. HEENT: Head is normocephalic and atraumatic. Eyes: PERRLA. Extraocular muscles are intact. Conjunctivae are clear. Nose is patent. Mucous membrane is moist. NECK: Supple. No carotid bruit. No JVD or thyromegaly. CHEST: Bilaterally symmetrical. HEART: S1 and S2 positive. LUNGS: Clear to auscultation. ABDOMEN: Soft. Bowel sounds present. No organomegaly. EXTREMITIES: No edema. No cyanosis. NEUROLOGIC: Patient is awake and alert. Moving all 4 extremities. No focal deficits. MEDICATIONS: Aspirin; Glucophage; Januvia; Lasix; Lopressor; Pradaxa; prednisone; Xopenex; Zestril. LABORATORY DATA: White blood cells 7.3, hemoglobin 12.6, hematocrit 39.2, platelet 235. Sodium 144, potassium 4.3. BUN 33, creatinine 1.2, glucose 144. Calcium 9.2. ASSESSMENT AND PLAN: The patient is a 62-year-old male with history of leukocytosis, improved; anemia; uncontrolled diabetes mellitus, hemoglobin A1c is above 9; seen by the [place], Dr. Holden Lang; dyspnea secondary to low left ventricular function as well as pulmonary hypertension; multivessel coronary artery disease; hypercholesterolemia; given these findings, we will give him trial of IV Primacor as per Dr. Holden Lang. In addition, we will repeat MUGA scan as per Dr. Holden Lang. From this other studies, his ejection fraction is never that low; however, if it is low, we will consider defibrillator and a possible pacemaker with pacemaker function; obstructive sleep apnea syndrome; reviewed Dr. Holden Lang and Dr. Vo's notes. MUGA scan shows moderate left ventricular dysfunction with diffuse hypokinesis and paradoxical septal wall motion of left ventricle, left ventricle ejection fraction 34%, normal right ventricular wall motion. Gastrointestinal and deep vein thrombosis prophylaxis. Repeat labs. We will follow. Josie Ramos MD [facility]
[2018-03-02 10:32] LABS: HEMOGLOBIN 11.2 g/dL (14.0-18.0); MEAN CELL VOLUME 80.5 fl (80.0-105.0); MEAN CORPUSCULAR HEMOGLOBIN 26.3 pg (25.0-35.0); MEAN CORPUSCULAR HGB CONC 32.7 g/dl (31.0-37.0); MEAN PLATELET VOLUME 8.9 fl (7.0-11.0); RBC 4.26 10^6/uL (3.5-6.1); RED CELL DISTRIBUTION WIDTH 18.2 % (11.5-14.5); WHITE BLOOD COUNT 9.6 10^3/ul (4.5-11.0)
[2018-03-02 10:41] LABS: CALCIUM 8.8 mg/dL (8.4-10.5)
--- NOTE | 2018-03-02 11:54 | PN ---
DATE: 03/02/2018 SUBJECTIVE: The patient was started on Primacor with subsequent clinical improvement. PHYSICAL EXAMINATION: VITAL SIGNS: Blood pressure 104/76, heart rate 88, temperature 98.9, respirations 19. HEENT: Normocephalic. CHEST: Clear. HEART: S1 and S2, regular. ABDOMEN: Soft. EXTREMITIES: No edema. LABORATORY DATA: Today's hemoglobin and hematocrit are 11.1 and 34.3. Platelet count and white count are within normal limits. Today's SMA-7 is within normal limits except for glucose of 125. BUN and creatinine were 35 and 1.6 respectively. MUGA scan revealed ejection fraction at 34%, paradoxical septal wall motion of the left ventricle. No more right ventricular wall motion. ASSESSMENT: 1. Ischemic cardiomyopathy. 2. Pulmonary hypertension. 3. Diabetes mellitus. 4. Hyperlipidemia. 5. Prerenal azotemia. 6. Chronic atrial fibrillation. RECOMMENDATIONS: Continue aspirin 81 mg once a day, Glucophage 750 mg daily, Januvia 100 mg once a day, reduced Lasix to 20 mg intravenous once a day, continue Pradaxa 150 mg twice a day and Primacor infusion. Kiet Daniel MD
--- NOTE | 2018-03-03 01:14 | PN ---
DATE: 03/02/2018 SUBJECTIVE: Patient is seen and examined at the bedside, looking comfortable. Still having Primacor running. As per patient, no more shortness of breath. No chest pain. No palpitation. No headache. No dizziness. No hematuria or hematochezia. No fever. No chills. PHYSICAL EXAMINATION: VITAL SIGNS: Temperature 97.4, pulse 93, blood pressure 113/67, pulse oximetry 82, respiratory rate 20. HEENT: Head normocephalic and atraumatic. Eyes, PERRLA. Extraocular muscles are intact. Conjunctivae clear. Nose patent. Mucous membrane moist. NECK: Supple. No carotid bruit. No JVD or thyromegaly. CHEST: Bilaterally symmetrical. HEART: S1 and S2 positive. LUNGS: Clear to auscultation. ABDOMEN: Soft. Bowel sounds present. No organomegaly. EXTREMITIES: No edema. No cyanosis. NEUROLOGIC: Patient is awake and alert. Moving all 4 extremities. No focal deficits. MEDICATIONS: Aspirin, Glucophage, Januvia, Lasix, Lopressor, Pradaxa, prednisone, Primacor drip, Xopenex, Zestril. LABORATORY DATA: White blood cell 9.6, hemoglobin 11.2, hematocrit 34.3, platelets 159. Sodium 143, potassium 3.4, BUN 35, creatinine 1.6, glucose 143. ASSESSMENT AND PLAN: Mr. Hernandez Bobby is a 62-year-old male with anemia, renal insufficiency, diabetes mellitus uncontrolled, has ischemic cardiomyopathy, pulmonary hypertension, sleep apnea syndrome, hypercholesterolemia, prerenal azotemia, chronic atrial fibrillation. As per Cardiology, continue aspirin and Glucophage, Januvia, Lasix. Continue Pradaxa and continue Primacor infusion. Appreciate shaper hand and bulker input. Patient went for MUGA scan and CAT scan of the chest noted by me. Patient has multivessel coronary artery disease with coronary stents, noncompliant with continuous positive airway pressure. Patient is getting tapering dose of prednisone. Continue inhaled bronchodilators. Repeat laps. Out of bed. Physical therapy. We will follow up. Josie Ramos MD [facility] # [id number] MTDD
--- NOTE | 2018-03-03 02:41 | PN ---
DATE: 03/02/2018 PULMONARY PROGRESS NOTE REFERRING PHYSICIAN: Josie Ramos MD SUBJECTIVE: The patient is lying in the bed, head at 45 degrees. Feels much better. No more shortness of breath. Tolerated CPAP well. On Primacor drip. Able to walk around the nurse's station without shortness of breath. No nausea, no vomiting, no diarrhea. No leg pain or leg swelling. OBJECTIVE: GENERAL: In no acute distress. VITAL SIGNS: Temperature 98, heart is 93, respiratory is 20, blood pressure 113/67. HEENT: Moist mucous membranes. No ulcer or thrush noted. NECK: Supple. No JVD. LUNGS: Have fair airflow, with no rhonchi. HEART: S1 and S2. ABDOMEN: Soft, nontender. No organomegaly. EXTREMITIES: No edema. NEUROLOGIC: Awake and alert. Follows simple command. MEDICATIONS: He is on aspirin 81 mg daily, metformin 750 mg daily, Januvia 100 mg daily, Lasix 20 mg daily, metoprolol tartrate 25 mg twice a day, Pradaxa 150 mg twice a day, prednisone 50 mg daily, IV Primacor, also on Xopenex inhaled every 6 hours, Zestril 20 mg daily. LABORATORY DATA: Shows hemoglobin 11.2, hematocrit 34.3, WBC 9.6, platelet is 159. Sodium 143, potassium 3.7, chloride 104, bicarbonate 30, BUN 35, creatinine 1.6, glucose 125, calcium is 8.8, magnesium 1.9. Microbiology, blood culture has been negative. IMPRESSION AND PLAN: Severe cardiomyopathy with pulmonary hypertension, coronary artery disease, history of coronary stent, chronic obstructive lung disease, may have sleep apnea syndrome, history of atrial fibrillation. Pulmonary point of view, doing well. We will decrease prednisone to 10 mg daily. Continue inhaled bronchodilator. The patient is on Primacor. Encouraged continuous positive airway pressure use. Will need full pulmonary function tests upon discharge as outpatient. Gastric prophylaxis. Thank you and we will follow with you. Minh Vo MD
[2018-03-03] MEDS: Milrinone 20mg/100ml D5W 100 ML IV PRN (03:32)
[2018-03-03 06:43] LABS: HEMOGLOBIN 11.6 g/dL (14.0-18.0); MEAN CELL VOLUME 79.5 fl (80.0-105.0); MEAN CORPUSCULAR HEMOGLOBIN 25.9 pg (25.0-35.0); MEAN CORPUSCULAR HGB CONC 32.6 g/dl (31.0-37.0); MEAN PLATELET VOLUME 9.3 fl (7.0-11.0); RBC 4.48 10^6/uL (3.5-6.1); RED CELL DISTRIBUTION WIDTH 17.9 % (11.5-14.5); WHITE BLOOD COUNT 9.4 10^3/ul (4.5-11.0)
[2018-03-03 07:11] LABS: BLOOD UREA NITROGEN 30 mg/dL (7-21); CALCIUM 8.8 mg/dL (8.4-10.5); GFR AFRICAN-AMERICAN > 60; GFR NON-AFRICAN AMERICAN > 60
[2018-03-03] MEDS ORDERED: Digoxin 250 mcg (0.25 mg) Tab PO STA (09:22)
--- NOTE | 2018-03-03 09:55 | PN ---
DATE: 03/03/2018 CARDIOLOGY FOLLOWUP SUBJECTIVE: The patient's breathing is much improved on IV milrinone. PHYSICAL EXAMINATION: VITAL SIGNS: Blood pressure is 105/70, the heart rates in the 80s. NECK: Negative JVD. LUNGS: Without rales. HEART: Reveals S1, S2. EXTREMITIES: Without edema. LABORATORY DATA: Includes hemoglobin of 11.6. BUN and creatinine are 30 and 1.2, the glucose is 109. IMPRESSION: 1. Status post congestive heart failure. 2. Ischemic dilated cardiomyopathy. 3. History of coronary artery disease. 4. Pulmonary hypertension. 5. Sleep apnea. 6. Dyspnea, which is now resolved. 7. Atrial fibrillation. PLAN: Given these findings, the patient's multiple syncopal episodes, with poor LV function, which is ischemic in nature, would be helped with an ICD. I have discussed it with the patient and family in detail. There are agreeable. I have discussed with the EP people in [place]. They will try to get the patient transferred to [facility] today for an ICD placement. Holden Lang MD
--- NOTE | 2018-03-03 13:11 | PN ---
DATE: 03/03/2018 PULMONARY PROGRESS NOTE REFERRING PHYSICIAN: Josie Ramos MD. SUBJECTIVE: The patient is sitting on side of the bed. Daughter is at bedside. Night was unremarkable, tolerated CPAP well. Primacor has been removed. Being scheduled for AICD. No cough. No sputum production. No nausea. No vomiting, diarrhea, leg pain, leg swelling. OBJECTIVE: GENERAL: In no acute distress. VITAL SIGNS: Temperature is 98, heart rate IS 85, respiratory rate is 18, blood pressure 97/55, pulse ox 98% on room air. HEENT: Moist mucous membrane. Crowded airway. Mallampati score is 4. NECK: Supple. No JVD. LUNGS: Have a fair airflow with rhonchi. HEART: S1 and S2. ABDOMEN: Soft, nontender. No organomegaly. EXTREMITIES: There is no edema. NEUROLOGICAL: Awake and alert. Follows simple command. MEDICATIONS: He is on aspirin 81 mg daily, metformin 750 mg daily, Januvia 100 mg daily, Lasix 20 mg daily, metoprolol tartrate 25 mg twice a day, Pradaxa 50 mg twice a day, prednisone 10 mg daily, Xopenex inhale every 6 hours, Zestril 20 mg daily. LABORATORY DATA: Shows hemoglobin 11.6, hematocrit 35.6, WBC 9.4, platelet count is 199. Sodium 143, potassium 3.7, chloride 106, bicarbonate 26, BUN 30, creatinine 1.2, glucose is 109, calcium is 8.8, magnesium 2. Microbiology: Blood culture has been negative. IMPRESSION AND PLAN: Cardiomyopathy with pulmonary hypertension, history of coronary artery disease, history of coronary stent, left ventricular ejection is about 34%, chronic obstructive lung disease, sleep apnea syndrome, atrial fibrillation. Spoke to the patient and the patient's family at bedside. All the questions answered. Pulmonary point of view, he is doing well. We will discontinue prednisone. Continue inhaled bronchodilator. Encourage continuous positive airway pressure use at night. May need study as a outpatient to requalify him for continuous positive airway pressure as I understand he is being scheduled for automatic implantable cardioverter-defibrillator. We will need to optimize left ventricular function and see clinically how he does. I think his pulmonary hypertension is mostly secondary to left heart failure, but there could be component of chronic obstructive pulmonary disease and also sleep apnea contributing to it. Thank you and we will follow with you. Minh Vo MD [facility] # [id number]
[2018-03-03] MEDS ORDERED: Digoxin 125 mcg (0.125 mg) Tab PO SCH (14:00)
[2018-03-04 00:03] VITALS: TEMP 97.8
--- NOTE | 2018-03-04 02:43 | PN ---
DATE: 03/03/2018 SUBJECTIVE: The patient seen and examined at the bedside. Daughter and are sitting on the bedside also. Night was unremarkable. Tolerated CPAP very well. Primacor has been removed. The patient being scheduled for AICD. No cough. No shortness of breath. No nausea, vomiting or diarrhea. No hematuria or hematochezia. No swelling of the leg. Dyspnea is resolved now. PHYSICAL EXAMINATION: GENERAL: Temperature 98.1, heart rate 85, respiratory rate 18, blood pressure 97/55, pulse oximetry 98% on room air. HEENT: Head is normocephalic and atraumatic. Eyes, PERRLA. Extraocular muscles are intact. Conjunctivae are clear. Nose is patent. Mucous membranes are moist. NECK: Supple. No carotid bruit. No JVD or thyromegaly. CHEST: Bilaterally symmetrical. HEART: S1 and S2 positive. LUNGS: Clear to auscultation. ABDOMEN: Soft. Bowel sounds present. No organomegaly. EXTREMITIES: No edema. No cyanosis. NEUROLOGIC: The patient is awake and alert. Moving all four extremities. No focal deficits. MEDICATIONS: Aspirin, Januvia, Lasix, Pradaxa, prednisone, Xopenex, Zestril. LABORATORY DATA: Shows hemoglobin 11.6, hematocrit 35.3, white blood cell 9.4, platelets 139. Sodium 143, potassium 3.7, BUN 30, creatinine 1.2. Blood cultures have been negative. ASSESSMENT AND PLAN: Mr. Hernandez Bobby is a 62-year-old male with severe cardiomyopathy with pulmonary hypertension, history of coronary artery disease with history of coronary stents, left ventricle ejection fraction 34%, chronic obstructive pulmonary disease, sleep apnea syndrome, atrial fibrillation, history of dyspnea that improved. Dr. Vo tapped down the prednisone and now he discontinued that. Inhaled bronchodilators. Encourage continuous positive airway pressure use at night. Need outpatient pulmonary function tests. The patient is scheduled for automatic implantable cardioverter-defibrillator. Appreciated Dr. Vo's input. According to Dr. Vo, the pulmonary hypertension is secondary to may be left heart failure or this could be component of chronic obstructive pulmonary disease because the patient was smoker all of his life. Reviewed Dr. Vo's notes and reviewed Dr. Holden Lang's notes also. Given these findings, the patient's multiple syncopal episode with poor left ventricular function which is ischemic in nature, would be helped with an ICD. Dr. Holden Lang is talking to the [place] people. and myself spoke to family and family is agreeable, and Dr. Holden Lang has discussion done with the people in the [place] which we will try to get the patient transferred to [facility] today or may be at least tomorrow. and daughter was at the bedside. Length of time discussion done. All the questions answered. Josie Ramos MD MTDD
[2018-03-04 06:01] VITALS: RESP 18; O2SAT 100
[2018-03-04 11:42] VITALS: BP 100/71
--- NOTE | 2018-03-04 12:57 | PN ---
DATE: 03/04/2018 PULMONARY PROGRESS NOTE REFERRING PHYSICIAN: Josie Ramos MD. SUBJECTIVE: He is sitting up in a bed. Feels better. No headache. No rhinitis. No nausea. No vomiting, diarrhea, leg pain, leg swelling. Tolerated BiPAP well. OBJECTIVE: GENERAL: In no acute distress. VITAL SIGNS: Temperature is 98, heart rate is 86, respiratory rate is 18, blood pressure 100/71. HEENT: Moist mucous membrane. Crowded airway. Mallampati score is 4. NECK: Supple. No JVD. LUNGS: Have a fair airflow with rhonchi. HEART: S1 and S2. ABDOMEN: Soft and nontender. No organomegaly. EXTREMITIES: No edema. NEUROLOGICAL: Awake and alert. Follows simple command. LABORATORY DATA: Reviewed. Blood sugar this morning 123. Microbiology: Blood culture has been negative. MEDICATIONS: He is on aspirin 81 mg daily, digoxin 0.125 mg daily, Glucophage 750 mg daily, Januvia 100 mg daily, Lasix 20 mg daily, metoprolol tartrate 25 mg twice a day, Pradaxa 150 mg twice a day, prednisone 10 mg daily, Xopenex inhale every 6 hours, Zestril 20 mg daily. ASSESSMENT AND PLAN: Cardiomyopathy with pulmonary hypertension, history of coronary artery disease, history of coronary stent, left ventricular ejection is about 34%, chronic obstructive lung disease, sleep apnea syndrome, atrial fibrillation. The patient is scheduled to be transferred to tertiary care for automatic implantable cardioverter-defibrillator. Pulmonary point of view, doing well. Encourage continuous positive airway pressure use. Outpatient sleep study to requalify him for continuous positive airway pressure. We will discontinue prednisone. Continue inhaled bronchodilator. Thank you and we will follow with you. Minh Vo MD
--- NOTE | 2018-03-04 12:57 | PN ---
DATE: 03/04/2018 SUBJECTIVE: The patient is asymptomatic. PHYSICAL EXAMINATION: VITAL SIGNS: Blood pressure is 128/88. There are rumors that the heart rate was a little lower yesterday, but heart rate is currently 70s. NECK: Negative JVD. LUNGS: Without rales or S1, S2. EXTREMITIES: Without edema. LABORATORY DATA: Hemoglobin is 11.6. Chemistries unremarkable. IMPRESSION: 1. Status post congestive heart failure. 2. Ischemic dilated cardiomyopathy. 3. Coronary artery disease. 4. Atrial fibrillation. 5. History of syncope x3. PLAN: Given these findings, the patient is being transferred out today for an ICD placement. Holden Lang MD
[2018-03-04 13:03] VITALS: PULSE 84
[2018-03-04] MEDS ORDERED: Digoxin 125 mcg (0.125 mg) Tab PO SCH (14:00)
[2018-03-04 16:15] VITALS: PULSE 74
== END 2018-03-04 17:12 | disposition short-term general hospital (02) | DRG 293 ==
LOC: ED 09:31 → ERH 11:07 → 2RSO 15:15 → OBSVTOIN 02-26 22:37
PROVIDERS: ADMIT Internal Medicine; ATTEND Internal Medicine
PROC: 5A09357 Assistance with Respiratory Ventilation, Less than 24 Consecutive Hours, Continuous Positive Airway Pressure (ICD-10-PCS; principal; 2018-03-01)
DX: I11.0 Hypertensive heart disease with heart failure (principal); I50.23 Acute on chronic systolic (congestive) heart failure; I42.0 Dilated cardiomyopathy; E11.65 Type 2 diabetes mellitus with hyperglycemia; I48.2 Chronic atrial fibrillation; J44.9 Chronic obstructive pulmonary disease, unspecified; I25.10 Atherosclerotic heart disease of native coronary artery without angina pectoris; G47.33 Obstructive sleep apnea (adult) (pediatric); E78.00 Pure hypercholesterolemia, unspecified; I25.5 Ischemic cardiomyopathy; E78.5 Hyperlipidemia, unspecified; R79.89 Other specified abnormal findings of blood chemistry; I27.22 Pulmonary hypertension due to left heart disease; Z79.01 Long term (current) use of anticoagulants; Z88.3 Allergy status to other anti-infective agents; Z79.84 Long term (current) use of oral hypoglycemic drugs; Z91.19 Patient's noncompliance with other medical treatment and regimen; Z95.5 Presence of coronary angioplasty implant and graft; Z79.82 Long term (current) use of aspirin; Z87.891 Personal history of nicotine dependence

== ENCOUNTER 2018-05-03 09:04 | Observation (INO) | payer MEDICARE, OTHER ==
[2018-05-03 09:05] VITALS: PULSE 84
[2018-05-03 09:27] VITALS: BMI 27.6
[2018-05-03 09:31] VITALS: O2SAT 98
--- NOTE | 2018-05-03 09:53 | ED PDOC ---
Arrival/HPI - General Chief Complaint: Medical Clearance Time Seen by Provider: 05/03/18 09:32 Historian: Patient - History of Present Illness Narrative History of Present Illness (Text): 05/03/18 09:50 63yr old male with hx of AICD revision 2 weeks ago presents today with onset of pain and swelling to the AICD this morning. pt denies fever/chills. no cp or sob. no abdominal pain. pt has completed course of abx after procedure. pt denies dizziness or weakness. no other complaints. Past Medical History - Provider Review Nursing Documentation Reviewed: Yes - Travel History Have you recently traveled outside [place] w/in the past 3 mons?: No - Infectious Disease Hx of Infectious Diseases: None - Tetanus Immunization Tetanus Immunization: Unknown - Cardiac Hx Cardiac Disorders: Yes Hx Atrial Fibrillation: Yes Hx Congestive Heart Failure: Yes Hx TN: Yes Hx Hypertension: Yes Other/Comment: L AICD - Pulmonary Hx Chronic Obstructive Pulmonary Disease (COPD): Yes - Neurological Hx Neurological Disorder: Yes HX Cerebrovascular Accident: No Other/Comment: Bppv - HEENT Hx HEENT Disorder: No Hx Blind: No Hx Cataracts: Yes (removed) Hx Deafness: No Hx Difficulty Chewing: No Hx Epistaxis: No Hx Glaucoma: No Hx Macular Degeneration: No Other/Comment: Retinal detachment repair - Renal Hx Renal Failure: No - Endocrine/Metabolic Hx Diabetes Mellitus Type 1: No Hx Diabetes Mellitus Type 2: Yes Hx Hypothyroidism: No - Hematological/Oncological Hx Blood Disorders: No Hx AIDS: No Hx Anemia: No Hx Cancer: No Hx Chemotherapy: No Hx Cirrhosis: No Hx Hemophilia: No Hx Hepatitis A: No Hx Hepatitis B: No Hx Hepatitis C: No Hx Metastasis: No Hx Shingles: No Hx Sickle Cell Disease: No Hx Unexplained Bleeding: No - Integumentary Hx Dermatological Disorder: No Hx Basal Cell Carcinoma: No Hx Eczema: No Hx Melanoma: No Hx Psoriasis: No Hx Squamous Cell Carcinoma: No - Musculoskeletal/Rheumatological Hx Falls: Yes - Gastrointestinal Hx Gastrointestinal Disorders: No Hx Colostomy: No Hx Crohn's Disease: No Hx Diverticulitis: No Hx Gall Bladder Disease: No Hx Gastroesophageal Reflux: No Hx Ileostomy: No Hx Liver Failure: No Hx Pancreatitis: No HX Swallowing Problems: No - Genitourinary/Gynecological Hx Genitourinary Disorders: No Hx Hematuria: No Hx Incontinence: No Hx Prostate Problems: No Hx Sexually Transmitted Diseases: No Hx Urinary Tract Infection: No - Psychiatric Hx Psychophysiologic Disorder: No Hx Anxiety: No Hx Bipolar Disorder: No Hx Depression: No Hx Emotional Abuse: No Hx Hallucinations: No Hx Panic Disorder: No Hx Post Traumatic Stress Disorder: No Hx Psychosis: No Hx Physical Abuse: No Hx Schizophrenia: No Hx Sexual Abuse: No Hx Substance Use: No - Surgical History Hx Cardiac Catheterization: Yes Other/Comment: stents. pacemaker/AICD placement - Anesthesia Hx Anesthesia: Yes Hx Anesthesia Reactions: No Hx Malignant Hyperthermia: No - Suicidal Assessment Feels Threatened In Home Enviroment: No Family/Social History - Physician Review Nursing Documentation Reviewed: Yes Family/Social History: Unknown Family HX Smoking Status: Former Smoker Hx Alcohol Use: No Hx Substance Use: No Hx Substance Use Treatment: No Allergies/Home Meds Allergies/Adverse Reactions: Allergies levofloxacin Allergy (Verified 02/25/18 17:42) SHORTNESS OF BREATH Home Medications: Home Meds Medication Instructions Recorded Confirmed Sitagliptin Phos/Metformin HCl 1 each PO DAILY 09/16/17 02/25/18 [Janumet Xr 100-1,000 mg Tablet] metFORMIN ER [glucoPHAGE XR] 750 mg PO DAILY 09/16/17 02/25/18 Albuterol HFA [Ventolin HFA 90 1 puff IH DAILY 10/13/17 02/25/18 mcg/actuation (8 g)] Aspirin [Adult Low Dose Aspirin EC] 81 mg PO DAILY 02/25/18 02/25/18 Dabigatran [Pradaxa] 150 mg PO BID 02/25/18 02/25/18 Dexlansoprazole [Dexilant] 30 mg PO DAILY 02/25/18 02/25/18 Furosemide [Lasix] 40 mg PO DAILY 02/25/18 02/25/18 Multivit-Min/Iron/Folic Acid/K 1 each PO DAILY 02/25/18 02/25/18 [Adults Multivitamin Caplet] Pravastatin Sodium [Pravachol] 10 mg PO DAILY 02/25/18 02/25/18 Ubidecarenone [Ultra Coq10] 75 mg PO DAILY 02/25/18 02/25/18 Digoxin [Lanoxin] 0.125 mg PO DAILY 03/03/18 03/03/18 Metoprolol Tartrate [Lopressor] 25 mg PO BID 03/03/18 03/03/18 Review of Systems - Review of Systems Constitutional: absent: Fatigue, Fevers Respiratory: absent: SOB, Cough Cardiovascular: absent: Chest Pain, Palpitations Gastrointestinal: absent: Abdominal Pain, Nausea, Vomiting Genitourinary Male: absent: Dysuria, Frequency, Hematuria Neurological: absent: Headache, Dizziness Psychiatric: absent: Anxiety, Depression Physical Exam Vital Signs Reviewed: Yes Vital Signs Temp Pulse Resp BP Pulse Ox 05/03/18 09:05 98.3 F 70 18 138/78 98 Temperature: Afebrile Blood Pressure: Normal Pulse: Regular Respiratory Rate: Normal Appearance: Positive for: Well-Appearing, Non-Toxic, Comfortable Pain Distress: None Mental Status: Positive for: Alert and Oriented X 3 - Systems Exam Head: Present: Atraumatic Mouth: Present: Moist Mucous Membranes Neck: Present: Normal Range of Motion Respiratory/Chest: Present: Clear to Auscultation, Good Air Exchange, Other ( there is a large area of fluctuance noted over the anterior aspect of the AICD without erythema or warmth. + minimal tenderness). No: Respiratory Distress, Accessory Muscle Use Cardiovascular: Present: Regular Rate and Rhythm Abdomen: No: Tenderness, Distention, Rebound, Guarding Neurological: Present: GCS=15 Skin: Present: Warm, Dry, Normal Color. No: Rashes Psychiatric: Present: Alert, Oriented x 3 Medical Decision Making ED Course and Treatment: 05/03/18 10:08 63yr old male with swelling around the site of the AICD. pt was seen and evaluated by dr. Carmona. CBC: wbc; 11.1 CMP: wnl EKb/m electronic atrial pacemaker, Rbbb. no st elevations CT chest: FINDINGS: LUNGS: MILD GROUND-GLASS DENSITY CHANGES COMPATIBLE WITH FIBROSIS OR AIR TRAPPING. MEDIASTINUM: Unremarkable thoracic aorta. No aneurysm. Normal sized heart. Main pulmonary artery unremarkable. No vascular congestion. No lymphadenopathy. Small pericardial effusion. PLEURA: No pleural fluid. No pneumothorax. BONES: No fracture. No destructive lesion. UPPER ABDOMEN: Grossly unremarkable. OTHER FINDINGS: 4 centimeter hyperdense region superficial to the AICD possibly representing complex fluid compatible with an abscess or hematoma. IMPRESSION: 4 centimeter hyperdense region superficial to the AICD possibly representing complex fluid compatible with an abscess or hematoma. case discussed with dr. atwood in depth; she wants dr. mueller on consult. 05/03/18 11:[address] Mueller in depth who saw patient at bedside. dr. mueller did needle aspirate; found to be hematoma. wound culture ordered. call placed to dr. bryan (front office java developer). Dr. bryan saw patient at bedside. will hold pradaxa - monitor patient. impression; hematoma, skin admit to tele Reassessment Condition: Re-examined, Unchanged - Lab Interpretations Lab Results: 05/03/18 09:50 05/03/18 09:50 Lab Results 05/03/18 09:50: WBC 11.1 H, RBC 4.34, Hgb 11.3 L, Hct 34.9 L, MCV 80.4, MCH 26.0 , MCHC 32.4, RDW 14.3, Plt Count 258, MPV 10.1, Gran % 72.8 H, Lymph % (Auto) 19.2 L, Bowie % (Auto) 6.0, Eos % (Auto) 1.8, Baso % (Auto) 0.2, Gran # 8.10 H, Lymph # (Auto) 2.1, Bowie # (Auto) 0.7 H, Eos # (Auto) 0.2, Baso # (Auto) 0.02 05/03/18 09:50: Sodium 143, Potassium 3.8, Chloride 107, Carbon Dioxide 24, Anion Gap 16, BUN 20, Creatinine 1.0, Est GFR ( Amer) > 60, Est GFR (Non- Af Amer) > 60, Random Glucose 111 H, Calcium 9.4, Total Bilirubin 0.6, AST 28, ALT 18, Alkaline Phosphatase 66, Total Protein 6.8, Albumin 3.8, Globulin 3.0, Albumin/Globulin Ratio 1.3 - RAD Interpretation Radiology Orders: 05/03/18 09:39 CHEST W/O CONTRAST [CT] Stat CHEST PORTABLE [RAD] Stat - Medication Orders Current Medication Orders: Vancomycin HCl (Vancomycin 1gm) 1 gm in 250 mls @ 167 mls/hr IVPB STAT STA PRN Reason: Protocol Stop: 05/03/18 12:34 Discontinued Medications Piperacillin Sod/Tazobactam Sod (Zosyn 3.375 In Ns 100ml) 100 mls @ 200 mls/hr IVPB STAT STA PRN Reason: Protocol Stop: 05/03/18 11:34 Last Admin: 05/03/18 11:35 Dose: 200 mls/hr eMAR Start Stop Document 05/03/18 11:35 EQ (Rec: 05/03/18 11:35 EQ [id number]) Intravenous Solution Start Date 05/03/18 Start Time 11:35 Disposition/Present on Arrival - Present on Arrival Any Indicators Present on Arrival: No History of DVT/PE: No History of Uncontrolled Diabetes: No Urinary Catheter: No History of Decub. Ulcer: No History Surgical Site Infection Following: None - Disposition Have Diagnosis and Disposition been Completed?: Yes Diagnosis: Hematoma of surgical wound of skin after surgical procedure Disposition: HOSPITALIZED Disposition Time: 12:05 Patient Plan: Observation Patient Problems: Current Active Problems Problem Status Onset Hematoma of surgical wound of skin after surgical procedure Acute Condition: FAIR Forms: [facility] (Korean)
[2018-05-03 10:23] LABS: ALB/GLOB RATIO 1.3 (1.1-1.8); ALBUMIN 3.8 g/dL (3.0-4.8); ALT/SGPT 18 U/L (7-56); AST/SGOT 28 U/L (17-59); BLOOD UREA NITROGEN 20 mg/dL (7-21); CALCIUM 9.4 mg/dL (8.4-10.5); GFR AFRICAN-AMERICAN > 60; GFR NON-AFRICAN AMERICAN > 60
[2018-05-03 10:27] LABS: BASO # 0.02 K/mm3 (0.0-2.0); BASO % 0.2 % (0.0-3.0); EOS # 0.2 (0.0-0.7); EOS % 1.8 % (1.5-5.0); GRAN # 8.1 (1.4-6.5); GRAN % 72.8 % (50.0-68.0); HEMOGLOBIN 11.3 g/dL (14.0-18.0); LYMPH # 2.1 (1.2-3.4); LYMPH % 19.2 % (22.0-35.0); MEAN CELL VOLUME 80.4 fl (80.0-105.0); MEAN CORPUSCULAR HGB CONC 32.4 g/dl (31.0-37.0); MEAN PLATELET VOLUME 10.1 fl (7.0-11.0); MONO # 0.7 (0.1-0.6); RBC 4.34 10^6/uL (3.5-6.1); RED CELL DISTRIBUTION WIDTH 14.3 % (11.5-14.5); WHITE BLOOD COUNT 11.1 10^3/ul (4.5-11.0)
--- NOTE | 2018-05-03 10:30 | RAD ---
HISTORY: swelling around AICD COMPARISON: Comparison chest 02/25/2018 . Comparison also made with prior CT scan chest 05/03/2018. FINDINGS: LUNGS: Lungs are hyperinflated. Interval improvement previously noted pulmonary venous congestive changes and patchy bilateral lower lobe alveolar-type infiltrates. PLEURA: Questionable tiny bilateral effusions. No pneumothorax apparent. CARDIOVASCULAR: Heart remains mildly enlarged. . Interval placement multi lead pacemaker/3 OSSEOUS STRUCTURES: No significant abnormalities. VISUALIZED UPPER ABDOMEN: Normal. OTHER FINDINGS: None. IMPRESSION: Interval placement multi lead pacemaker/ defibrillator. Hyperinflation. Interval improvement previously noted pulmonary venous congestive changes and patchy bilateral lower lobe infiltrates
--- NOTE | 2018-05-03 10:50 | CT ---
PROCEDURE: CT Chest without contrast HISTORY: swelling around AICD with pain r/o abscess COMPARISON: None. TECHNIQUE: Contiguous axial images were obtained through the chest without intravenous contrast enhancement. Sagittal and coronal reconstructions were performed. Radiation dose (DLP): mGy-cm. This CT exam was performed using one or more of the following dose reduction techniques: Automated exposure control, adjustment of the mA and/or kV according to patient size, and/or use of iterative reconstruction technique. FINDINGS: LUNGS: MILD GROUND-GLASS DENSITY CHANGES COMPATIBLE WITH FIBROSIS OR AIR TRAPPING. MEDIASTINUM: Unremarkable thoracic aorta. No aneurysm. Normal sized heart. Main pulmonary artery unremarkable. No vascular congestion. No lymphadenopathy. Small pericardial effusion. PLEURA: No pleural fluid. No pneumothorax. BONES: No fracture. No destructive lesion. UPPER ABDOMEN: Grossly unremarkable. OTHER FINDINGS: 4 centimeter hyperdense region superficial to the AICD possibly representing complex fluid compatible with an abscess or hematoma. IMPRESSION: 4 centimeter hyperdense region superficial to the AICD possibly representing complex fluid compatible with an abscess or hematoma.
[2018-05-03] MEDS ORDERED: Vancomycin 1gm in NS 250ml 1 GM/250 ML BAG IVPB STA ×2 (11:05→20:29)
[2018-05-03] MEDS ORDERED: Piperacillin/Tazobact 3.375 gm 100 ML IVPB STA (11:05)
--- NOTE | 2018-05-03 12:35 | CON ---
DATE: 05/03/2018 CARDIOLOGY CONSULTATION HISTORY: The patient is a 63-year-old male with documented ischemic dilated cardiomyopathy with an ejection fraction of 35% who underwent ICD and BiV pacemaker placement at [facility] two weeks ago. This morning, the patient developed swelling in his ICD pocket. No shortness of breath. No chest pain. No fevers. No chills. No trauma to the area. The patient is on Pradaxa for his atrial fibrillation. PAST MEDICAL HISTORY: Notable for diabetes mellitus, hypercholesterolemia as well as recurrent dyspnea. SOCIAL HISTORY: The patient is a former smoker. REVIEW OF SYSTEMS: No cardiac symptomatology is noted, just a swelling in his left ICD pocket. PHYSICAL EXAMINATION: VITAL SIGNS: Blood pressure is 138/78, heart rate is in the 70s. NECK: Negative JVD. LUNGS: Without rales. HEART: Reveal S1, S2. The chest wall over the ICD site is swollen consistent with a hematoma. EXTREMITIES: Without clubbing, cyanosis or edema. DATA: EKG is unchanged. White count is 11.1, hemoglobin is 11.3. Chemistries: BUN and creatinine is 20 and 1, glucose is 111, hemoglobin is 11.1. IMPRESSION: 1. Needle aspiration, appears to be hematoma without pus noted although the sample is sent for culture. 2. No evidence for sepsis. 3. Ischemic dilated cardiomyopathy. 4. Coronary artery disease. 5. Diabetes mellitus. 6. Anemia. 7. Status post implantable cardioverter-defibrillator placement. Given these findings, pressure has been placed on the hematoma site. We will discontinue Pradaxa for now. Dr. Mueller, the surgeon, is following up with the patient. I have called Dr. Gayle from [place] who is the pit hoist operator in his ICD placement. Holden Lang MD
[2018-05-03 13:57] LABS: INR 1.39 (0.93-1.08); PARTIAL THROMBOPLASTIN TIME 51.5 Seconds (25.1-36.5)
--- NOTE | 2018-05-03 14:48 | CP.PCM.CON ---
Addendum entered and electronically signed by Elvia Clarke DO 05/04/18 08:02 : Original Note: <Elvia Clarke - Last Filed: 05/04/18 07:53> History of Present Illness - History of Present Illness History of Present Illness: General Surgery Consult Note for Dr. Mueller 63 y/o M with pmhx of Afib s/p AICD, CHF, SD, HTN admitted for a pocket hematoma around his AICD device. Patient states that he noticed swelling around his AICD this am. He underwent AICD placement 5-6 weeks ago due to recurrent syncopal episodes. He was subsequently readmitted for Afib w/ RVR leading to CHF. He underwent a AICD lead revision procedure on 04/26/18. He had completed a week course of antibiotics after the procedure. He last took his pradaxa at 7am this morning. CT scan showed 4cm hyperdense region superficial to AICD, possibly representing fluid compatible with abscess or hematoma without purulence noted. Dr. Mueller performed bedside needle aspiration with sanguinous fluid return. He reports that there is only some discomfort when pressing the hematoma but denies any symptoms at rest. He denies fever, chills , chest pain, palpitations, shortness of breath, wheezing, headache or dizziness. Review of Systems - Constitutional Constitutional: absent: Fever, Headache, Weakness - Cardiovascular Cardiovascular: absent: Chest Pain, Pain Radiating to Arm/Neck/Jaw, Lightheadedness - Respiratory Respiratory: absent: Dyspnea, Wheezing - Gastrointestinal Gastrointestinal: absent: Abdominal Pain, Diarrhea, Vomiting - Neurological Neurological: absent: Dizziness, Headaches, Syncope Past Patient History - Infectious Disease Hx of Infectious Diseases: None - Tetanus Immunizations Tetanus Immunization: Unknown - Past Social History Smoking Status: Former Smoker - CARDIAC Hx Cardiac Disorders: Yes Hx Atrial Fibrillation: Yes Hx Congestive Heart Failure: Yes Hx Heart Attack: Yes Hx Hypertension: Yes Other/Comment: L AICD - PULMONARY Hx Chronic Obstructive Pulmonary Disease (COPD): Yes - NEUROLOGICAL Hx Neurological Disorder: Yes HX Cerebrovascular Accident: No Other/Comment: Bppv - HEENT Hx HEENT Problems: No Hx Blind: No Hx Cataracts: Yes (removed) Hx Deafness: No Hx Difficulty Chewing: No Hx Epistaxis: No Hx Glaucoma: No Hx Macular Degeneration: No Other/Comment: Retinal detachment repair - RENAL Hx Renal Failure: No - ENDOCRINE/METABOLIC Hx Diabetes Mellitus Type 1: No Hx Diabetes Mellitus Type 2: Yes Hx Hypothyroidism: No - HEMATOLOGICAL/ONCOLOGICAL Hx Blood Disorders: No Hx AIDS: No Hx Anemia: No Hx Cancer: No Hx Chemotherapy: No Hx Cirrhosis: No Hx Hemophilia: No Hx Hepatitis A: No Hx Hepatitis B: No Hx Hepatitis C: No Hx Metastesis: No Hx Shingles: No Hx Sickle Cell Disease: No Hx Unexplained Bleeding: No - INTEGUMENTARY Hx Dermatological Problems: No Hx Basil Cell: No Hx Eczema: No Hx Melanoma: No Hx Psoriasis: No Hx Squamous Cell: No - MUSCULOSKELETAL/RHEUMATOLOGICAL Hx Falls: Yes - GASTROINTESTINAL Hx Gastrointestinal Disorders: No Hx Colostomy: No Hx Crohn's Disease: No Hx Diverticulitis: No Hx Gall Bladder Disease: No Hx Gastroesophageal Reflux: No Hx Ileostomy: No Hx Liver Failure: No Hx Pancreatitis: No HX Swallowing Problems: No - GENITOURINARY/GYNECOLOGICAL Hx Genitourinary Disorders: No Hx Hematuria: No Hx Incontinence: No Hx Prostate Problems: No Hx Sexually Transmitted Disorders: No Hx Urinary Tract Infection: No - PSYCHIATRIC Hx Psychophysiologic Disorder: No Hx Anxiety: No Hx Bipolar Disorder: No Hx Depression: No Hx Emotional Abuse: No Hx Hallucinations: No Hx Panic Symptoms: No Hx Post Traumatic Stress Disorder: No Hx Psychosis: No Hx Physical Abuse: No Hx Schizophrenia: No Hx Sexual Abuse: No Hx Substance Use: No - SURGICAL HISTORY Hx Cardiac Catheterization: Yes Other/Comment: stents. pacemaker/AICD placement - ANESTHESIA Hx Anesthesia: Yes Hx Anesthesia Reactions: No Hx Malignant Hyperthermia: No Meds Allergies/Adverse Reactions: Allergies Allergy/AdvReac Type Severity Reaction Status Date / Time levofloxacin Allergy SHORTNESS Verified 05/03/18 13:00 OF BREATH Physical Exam - Constitutional Appears: Well, Non-toxic, No Acute Distress - Head Exam Head Exam: ATRAUMATIC, NORMAL INSPECTION - Eye Exam Eye Exam: Normal appearance - Respiratory Exam Respiratory Exam: NORMAL BREATHING PATTERN (L sided infraclavicular 10cm x 7cm non fluctuant, non erythematous mass noted. No crepitus. ) - Cardiovascular Exam Cardiovascular Exam: REGULAR RHYTHM - GI/Abdominal Exam GI & Abdominal Exam: Soft - Extremities Exam Extremities exam: Positive for: normal inspection - Neurological Exam Neurological exam: Alert - Psychiatric Exam Psychiatric exam: Normal Affect, Normal Mood - Skin Skin Exam: Dry, Intact, Warm - Additional Findings Additional findings: 10cm x 7cm non erythematous, non draining, nonfluctuant localized L subclavicular swelling around AICD device Results - Vital Signs Recent Vital Signs: Last Vital Signs Temp 98.5 F 05/03/18 13:28 Pulse 65 05/03/18 13:28 Resp 18 05/03/18 13:28 BP 132/94 H 05/03/18 13:28 Pulse Ox 98 05/03/18 13:28 - Labs Result Diagrams: 05/03/18 09:50 05/03/18 09:50 Assessment & Plan - Assessment and Plan (Free Text) Assessment: 63 y/o M with hematoma around AICD Plan: - no surgical intervention at this time - f/u blood/wound cultures - f/u cardio recs - recommend patient follow up with physician who placed AICD - hold pradaxa until signs of bleeding have stopped, if cardiology approves - Discussed with Dr. Ervin Clarke PGY1 - Date & Time Date: 05/03/18 Time: 16:28 <Luca Mueller - Last Filed: 05/04/18 08:48> Results - Vital Signs Recent Vital Signs: Last Vital Signs Temp 98 F 05/03/18 17:31 Pulse 70 05/03/18 22:00 Resp 20 05/03/18 17:31 BP 113/62 05/03/18 17:31 Pulse Ox 98 05/03/18 13:28 - Labs Result Diagrams: 05/03/18 09:50 05/03/18 09:50 Labs: Laboratory Results - last 24 hr 05/03/18 16:17 POC Glucose (mg/dL) 150 H Assessment & Plan - Assessment and Plan (Free Text) Assessment: Dx: Acute pocket hemorrhage post op 4(AICD) Pocket aspirated aseptically in ER-c/s sent/Ab continued DO NOT AGREE with d/c:pt needs IV AB/serial exams/dc Pradaxa WICHO; THAIS DAVIS notified by Randa This consult done under my direct supervision Dada Mueller MD FACS
[2018-05-03] MEDS ORDERED: Pneumococcal 23-Valent Vaccine IM ONE (15:09)
[2018-05-03] MEDS ORDERED: Albuterol HFA 90 mcg/actuation (8 g) IH PRN (15:32)
--- NOTE | 2018-05-03 15:48 | CARD ---
APPROVED REPORT EKG Measurement Heart [id number] <Conclusion> Atrial sensed, Bi-ventricular paced rhythm Abnormal ECG
[2018-05-03] MEDS ORDERED: Albuterol 0.083% Inhal Sol (2.5 mg/3 mL) UD IH PRN (15:51)
[2018-05-03] MEDS ORDERED: Insulin Reg-LOW-Coverage SC SCH (16:30)
[2018-05-03 17:21] VITALS: BP 113/62
[2018-05-03 17:32] VITALS: RESP 20; TEMP 98
[2018-05-03] MEDS ORDERED: DOFETILIDE PO SCH (18:00)
[2018-05-03 22:13] VITALS: PULSE 70
--- NOTE | 2018-05-03 23:38 | HP ---
The patient was seen and examined on 05/03/2018. CHIEF COMPLAINT: Swelling on the left side of the chest. HISTORY OF PRESENT ILLNESS: Mr. Hernandez Bobby, 63-year-old male with history of AICD revision 2 weeks ago, presented today with onset of pain and swelling to the AICD this morning. The patient denies fever, chills. No chest pain. No shortness of breath. No abdominal pain. The patient has completed course of antibiotic, Keflex, yesterday was fifth day of the Keflex after procedure. The patient denies dizziness, weakness. No nausea, vomiting, diarrhea. No hematuria or hematochezia. No swelling of legs. No headache. No dizziness. PAST MEDICAL HISTORY: Atrial fibrillation, congestive heart failure, history of MA, hypertension, history of left-sided AICD, COPD, cataract surgery, history of retinal detachment and repair, diabetes mellitus type 2, history of cardiac stenting, pacemaker/AICD placement. FAMILY HISTORY: Father and mother, noncontributory. HABITS: Former smoker, now no smoking. No drugs. No ethanol. ALLERGIES: ALLERGIC WITH LEVOFLOXACIN. HOME MEDICATIONS: Janumet, metformin, Ventolin, aspirin, Pradaxa, Dexilant, Lasix, multivitamins, pravastatin, Lanoxin, metoprolol. REVIEW OF SYSTEMS: The patient was seen and examined on the bedside. Both daughters were sitting on the bedside also. No fatigue, fever. No shortness of breath. No coughing. No palpitation. No abdominal pain. No nausea, vomiting, diarrhea. No dysuria, frequency or hematuria. No headache or dizziness. No anxiety or depression. Still having redness on the left side of the chest and local tenderness. PHYSICAL EXAMINATION: VITAL SIGNS: Temperature 98.3, pulse of 70, respiratory rate 18, blood pressure 138/78, pulse oximetry 98. HEENT: Head normocephalic, atraumatic. Eyes PERRLA. Extraocular muscles intact. Conjunctivae clear. Nose patent. Mucous membrane moist. NECK: Supple. No carotid bruit. No JVD or thyromegaly. CHEST: There is an AICD on the left upper side of the chest that is swollen. HEART: S1 and S2 positive. LUNGS: Clear to auscultation. ABDOMEN: Soft. Bowel sounds positive. No organomegaly. EXTREMITIES: No edema. No cyanosis. NEUROLOGICAL: The patient is awake, alert. Moving all 4 extremities. No focal deficits. LABORATORY DATA: White blood cells 11.1, hemoglobin 11.3, hematocrit 34.9, platelets 258. Sodium 143, potassium 3.8, BUN 20, creatinine 1, glucose 111. ASSESSMENT AND PLAN: Mr. Hernandez Bobby, a 63-year-old male with leukocytosis, anemia, hyperglycemia. Has hematoma of surgical wound of skin after surgical procedure, history of atrial fibrillation, status post procedure, congestive heart failure, myocardial infarction, hypertension, chronic obstructive pulmonary disease, obstructive sleep apnea syndrome, history of cataract surgery, retinal detachment repair, diabetes mellitus type 2, history of fall. CAT scan of the chest done, chest x-ray done, reviewed by me. Coronary artery disease, status post implantable cardioverter defibrillator placement; hematoma, needle aspiration by Dr. Mueller, appears to be hematoma without pus noted, although the sample is sent for culture. No evidence of sepsis. Ischemic dilated cardiomyopathy. Discontinue Pradaxa for [address] Gayle, Electrophysiology from [place], who is the sticker machine operator in this implantable cardioverter-defibrillator placement. Length of time discussion done. The patient is given in the emergency room vancomycin and Zosyn and after speaking to the patient's direct mail marketer, Electrophysiology, another dose of vancomycin given as per his doctor's request. Aspirated fluid sent for analysis. The patient discharged as per Irwin Butt's request. The patient will see him in his office . Josie Ramos MD [facility]
[2018-05-04] MEDS ORDERED: Pantoprazole 40 mg EC Tab PO SCH (07:30)
[2018-05-04] MEDS ORDERED: POTASSIUM CHLORIDE PO SCH (10:00)
[2018-05-04] MEDS ORDERED: ESOMEPRAZOLE MAGNESIUM PO SCH (10:00)
--- NOTE | 2018-05-04 20:50 | DS ---
Patient is a 63-year-old male. Patient was admitted for hematoma at AICD surgical site. Patient was seen by Dr. Mueller, Dr. Holden Lang. CAT scan of the chest was done. Discharged patient home. Discussed followup with showroom manager, Dr. Gayle, phone # [phone] about hematoma and AICD. Spoke to the patient's daughter. Discharged home after giving dose of vancomycin. We will follow up with showroom manager, Dr. Gayle. Continue his home medications. Pradaxa is on hold for five days. For more details, see my H and P of 05/03/2018. Josie Ramos MD
--- NOTE | 2018-05-13 16:47 | CON ---
DATE: 05/03/2018 CHIEF COMPLAINT: Swollen defibrillator site. PRESENT ILLNESS: The patient is a 63-year-old male who presents to the emergency room with sudden onset of swelling of his left AICD - defibrillator pacer site. It began this morning, suddenly enlarged, became quite painful and warm to the touch. He comes to the hospital for evaluation and the surgeon is called to evaluate him. He has known history of atrial fibrillation, congestive heart failure, hypertension, and myocardial infarction. Due to the acute nature of the swelling 4 days after the procedure and insertion, this recruiting consultant feels the patient must be confirmed not to have an acute infection. He is taking Pradaxa which is probably contributory to the bleeding state, but has no fever, chills, or sweats. Discussion with the emergency room team and with the patient with extensive explanation is done and the patient is agreeable to having the sample taken to confirm the culture status. PROCEDURE DESCRIPTION: The patient was supine in the stretcher in the emergency room 11 and the area was prepped three times with Hibiclens chlorhexidine preparation, allowed to dry, and aseptically draped. A #18 needle was inserted into the incision without any infiltration of the skin, aspirating approximately 5 mL of non clotted blood of full bright red nature and this was submitted to Pathology for aerobic and anaerobic culture immediately. Compression was applied for 15 minutes to the site. This patient describes his corporate events director as Dr. Holden Lang who has just come into the hospital and immediate consultation was held with him describing the patient in the ER. He notifies us that the patient had an retail representative inserted this in [facility] 4 days ago. The culture did return approximately 5 days later as no growth and the patient was observed for multiple hours here in the hospital and then discharged back to the care of the retail representative. This dictation will be electronically signed without being read. DISCHARGE DIAGNOSIS: At the time of consultation is acute pacemaker defibrillator pocket hemorrhage. Luca Mueller MD
== END 2018-05-03 22:57 | disposition home or self-care (01) ==
LOC: ED 09:04 → ERH 12:01 → 2RNO 13:24
PROVIDERS: ADMIT Internal Medicine; ATTEND Internal Medicine
DX: L76.32 Postprocedural hematoma of skin and subcutaneous tissue following other procedure (principal); Y83.8 Other surgical procedures as the cause of abnormal reaction of the patient, or of later complication, without mention of misadventure at the time of the procedure; D64.9 Anemia, unspecified; D72.829 Elevated white blood cell count, unspecified; E11.65 Type 2 diabetes mellitus with hyperglycemia; E78.00 Pure hypercholesterolemia, unspecified; G47.33 Obstructive sleep apnea (adult) (pediatric); I11.0 Hypertensive heart disease with heart failure; I25.10 Atherosclerotic heart disease of native coronary artery without angina pectoris; I25.2 Old myocardial infarction; I25.5 Ischemic cardiomyopathy; I42.0 Dilated cardiomyopathy; I48.91 Unspecified atrial fibrillation; I50.9 Heart failure, unspecified; Z95.810 Presence of automatic (implantable) cardiac defibrillator; J44.9 Chronic obstructive pulmonary disease, unspecified; Z79.01 Long term (current) use of anticoagulants; Z79.82 Long term (current) use of aspirin; Z87.891 Personal history of nicotine dependence; Z95.5 Presence of coronary angioplasty implant and graft; R40.2412 Glasgow coma scale score 13-15, at arrival to emergency department
CPT/HCPCS: 10160; 71045; 71250; 80053; 82948; 85025; 85610; 85730; 87040; 93005; 96374; 96375; 96376; 99283; G0378; J2543